=== PATIENT | female | born 1930 | race Caucasian/White ===

== ENCOUNTER 2016-11-14 16:40 | Inpatient (IN) | payer MEDICARE, OTHER ==
[2016-11-14] MEDS ORDERED: Sodium Chloride 0.9% 5 ML Syringe FLUSH PRN ×2 (16:56→18:47)
[2016-11-14] MEDS ORDERED: Morphine 4 MG/ML Syringe IVPUSH ONE (16:56)
[2016-11-14] MEDS ORDERED: Sodium Chloride 0.9% 1,000 ML IV ONE (16:56)
[2016-11-14] MEDS ORDERED: Ondansetron 4 MG/2 ML SDV IVPUSH ONE (16:56)
--- NOTE | 2016-11-14 17:02 | EDM.PDOC ---
ED HPI GI/ABDOMINAL - General Chief Complaint: Abdominal Pain Stated Complaint: SEVERE ABDOMINAL PAIN Time Seen by Provider: 11/14/16 16:45 Source of Information: Reports: Patient History Limitations: Reports: No limitations - History of Present Illness INITIAL COMMENTS - FREE TEXT/NARRATIVE: 86 YO WF presents to ER complaining of severe abdominal pain which began today. Pt reports her pain is mostly in her lower abdomen but she feels like her pain is generalized. Pt reports associated nausea without vomiting. Pt denies fever/ chills, denies diarrhea or constipation. Pt with history of hospital admission for RUQ abdominal pain and was diagnosed with viral gastroenteritis. Timing/Duration: Reports: Day(s): (1) Location: generalized Quality: Reports: ache, burning Severity: moderate Context: Denies: sick contact, bad/questionable food, out of country travel, recent surgery, recent trauma, lifting, activity/exercise Associated Symptoms (-Female): Reports: loss of appetite, nausea/vomiting ( nausea). Denies: chest pain, back pain, groin pain, shoulder pain, constipation , diarrhea, bloody stools, fever/chills, malaise - Related Data Allergies/ADRs: Allergies Allergy/AdvReac Type Severity Reaction Status Date / Time adhesive tape Allergy Itching Verified 11/14/16 17:32 Penicillins Allergy Cannot Verified 11/14/16 17:06 Remember sulfamethoxazole Allergy Cannot Verified 11/14/16 17:06 [From Bactrim] Remember trimethoprim [From Bactrim] Allergy Cannot Verified 11/14/16 17:06 Remember Home Meds: Home Meds Acetaminophen/HYDROcodone [[place] 325-5 MG] 1 tab PO Q6H PRN 02/03/16 [History] Aspirin 81 mg PO DAILY 02/03/16 [History] ClonazePAM [KlonoPIN] 0.25 mg PO BEDTIME PRN 02/03/16 [History] Cyanocobalamin (Vitamin B-12) [Vitamin B-12] 100 mcg PO DAILY 02/03/16 [History] Cyclobenzaprine [Flexeril] 10 mg PO BID 02/03/16 [History] Ketotifen Fumarate [Zaditor] 1 drop EYEBOTH BID PRN 02/03/16 [History] Levothyroxine [Synthroid] 50 mcg PO ACBREAKFAST 02/03/16 [History] Lisinopril 20 mg PO DAILY 02/03/16 [History] Lutein/Zeaxanthin [Lutein-Zeaxanthin 25-5 mg Sfgl] 1 tab PO DAILY 02/03/16 [ History] Multivitamins/Minerals [Vitamins and Minerals] 1 tab PO DAILY 02/03/16 [History] traMADol [Ultram] 50 mg PO TID PRN 02/03/16 [History] Magnesium Hydroxide [Milk of Magnesia] 30 ml PO DAILY PRN 02/04/16 [History] Biotin 1 tab PO DAILY 11/14/16 [History] Cholecalciferol (Vitamin D3) [Vitamin D3] 1 cap PO DAILY 11/14/16 [History] ClonazePAM [KlonoPIN] 0.125 mg PO DAILY PRN 11/14/16 [History] Ondansetron HCl [Zofran] 1 tab PO Q6H PRN 11/14/16 [History] Past Medical History HEENT History: Reports: Cataract, Impaired vision Cardiovascular History: Reports: Hypertension Respiratory History: Reports: None Gastrointestinal History: Reports: Chronic constipation Genitourinary History: Reports: None 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: Musculoskeletal History: Reports: Arthritis Neurological History: Reports: None Psychiatric History: Reports: Anxiety Endocrine/Metabolic History: Reports: Hypothyroidism Hematologic History: Reports: B12 deficiency Immunologic History: Reports: None Oncologic (Cancer) History: Reports: Cervix Dermatologic History: Reports: None - Infectious Disease History Infectious Disease History: Reports: Chicken pox, Measles, Mumps, Rubella - Past Surgical History HEENT Surgical History: Reports: Cataract surgery Cardiovascular Surgical History: Reports: None Respiratory Surgical History: Reports: None GI Surgical History: Reports: Appendectomy, Colonoscopy, EGD Female Surgical History: Reports: Breast biopsy, Hysterectomy, Salpingo- oophorectomy Endocrine Surgical History: Reports: None Neurological Surgical History: Reports: None Musculoskeletal Surgical History: Reports: None Oncologic Surgical History: Reports: None Dermatological Surgical History: Reports: None Social & Family History - Family History Family Medical History: Noncontributory - Tobacco Use Smoking Status *Q: Current Every Day Smoker Years of Tobacco use: 70 Packs/Tins Daily: 0.5 Used Tobacco, but Quit: No Second Hand Smoke Exposure: No - Alcohol Use Days Per Week of Alcohol Use: 0 - Recreational Drug Use Recreational Drug Use: No ED ROS GENERAL - Review of Systems Review Of Systems: ROS reveals no pertinent complaints other than HPI. Constitutional: Reports: no symptoms HEENT: Reports: No symptoms Respiratory: Reports: no symptoms Cardiovascular: Reports: No symptoms Endocrine: Reports: no symptoms GI/Abdominal: Reports: Abdominal pain, Anorexia, Nausea. Denies: Black stool, Bloody stool, Distension, Flatus, Hematemesis, Melena, Stool incontinence, Vomiting : Reports: frequency. Denies: dysuria, urgency Musculoskeletal: Reports: no symptoms Skin: Reports: no symptoms Neurological: Reports: no symptoms Psychiatric: Reports: No symptoms Hematologic/Lymphatic: Reports: no symptoms Immunologic: Reports: no symptoms ED EXAM, GI/ABD - Physical Exam Exam: See Below Exam Limited By: No limitations General Appearance: alert, WD/WN, mild distress Throat/Mouth: Normal inspection, Normal lips, Normal teeth, Normal gums, Normal oropharynx, Normal voice, No airway compromise Head: atraumatic, normocephalic Neck: normal inspection, supple, non-tender, full range of motion Respiratory/Chest: no respiratory distress, lungs clear, normal breath sounds, no accessory muscle use, chest non-tender Cardiovascular: normal peripheral pulses, regular rate, rhythm, no edema, no gallop, no JVD, no murmur, no rub GI/Abdominal: normal bowel sounds, soft, no organomegaly, no distention, no abnormal bruit, no mass, tenderness, guarding Back Exam: normal inspection, full range of motion, NT Extremities: normal inspection, normal range of motion, non-tender, normal capillary refill, no pedal edema Neurological: alert, oriented, CN II-XII intact, normal cognition, normal gait, normal reflexes, no motor/sensory deficits Psychiatric: normal affect, normal mood Skin Exam: Warm, Dry, Intact, Normal color, No rash Lymphatic: no adenopathy Course - Vital Signs Last Recorded V/S: Last Vital Signs Temp 37.3 C 11/14/16 16:55 Pulse 100 11/14/16 16:55 Resp 32 H 11/14/16 16:55 BP 174/45 H 11/14/16 16:55 Pulse Ox 97 11/14/16 16:55 - Orders/Labs/Meds Orders: Active Orders 24 hr Category Date Time Status Peripheral IV Care [RC] . DIRECTED Care 11/14/16 16:57 Active Abdomen Pelvis w Cont [CT] Stat Exams 11/14/16 16:56 Taken Sodium Chloride 0.9% [Normal Saline] Med 11/14/16 18:15 Active 50 ml FLUSH ASDIRECTED Sodium Chloride 0.9% [Syrex Flush] Med 11/14/16 16:56 Active 5 ml FLUSH Q8HR PRN Peripheral IV Insertion Adult [OM.PC] Routine Oth 11/14/16 16:56 Ordered Medication Orders Sodium Chloride (Syrex Flush) 5 ml FLUSH Q8HR PRN PRN Reason: Keep Vein Open Sodium Chloride (Normal Saline) 50 ml FLUSH ASDIRECTED [facility] Labs: Laboratory Tests 11/14/16 11/14/16 11/14/16 Range/Units 17:10 17:10 18:05 WBC 9.1 (5.0-10.0) 10^3/uL RBC 5.31 (3.80-5.50) 10^6/uL Hgb 16.5 H (12.0-16.0) g/dL Hct 48.8 H (37.0-47.0) % MCV 92.0 (82.0-92.0) fL MCH 31.0 (27.0-31.0) pg MCHC 33.7 (32.0-36.0) g/dL RDW 12.7 (11.5-14.5) % Plt Count 251 (150-300) 10^3/uL MPV 7.2 L (7.4-10.4) fL Neut % (Auto) 80.8 H (50.0-70.0) % Lymph % (Auto) 15.4 L (20.0-40.0) % [place] % (Auto) 3.2 (2.0-8.0) % Eos % (Auto) 0.5 L (1.0-3.0) % Baso % (Auto) 0.1 (0.0-1.0) % Neut # 7.4 H (2.5-7.0) 10^3/uL Lymph # 1.4 (1.0-4.0) 10^3/uL [place] # 0.3 (0.1-0.8) 10^3/uL Eos # 0.0 L (0.1-0.3) 10^3/uL Baso # 0.0 (0.0-0.1) 10^3/uL Sodium 138 (136-145) mmol/L Potassium 5.2 (3.3-5.3) mmol/L Chloride 101 (98-115) mmol/L Carbon Dioxide 23.2 (21.0-32.0) mmol/L BUN 29 H (6-25) mg/dL Creatinine 0.78 (0.51-1.17) mg/dL Est Cr Clr Drug Dosing 25.10 mL/min Estimated GFR (MDRD) > 60 mL/min Glucose 133 H (70-110) mg/dL Calcium 9.5 (8.7-10.3) mg/dL Total Bilirubin 0.6 (0.2-1.0) mg/dL AST 32 (15-37) U/L ALT 31 (12-78) U/L Alkaline Phosphatase 69 (46-116) IU/L Total Protein 6.5 (6.4-8.2) g/dL Albumin 3.74 (3.00-4.80) g/dL Lipase 128 (73-393) U/L Specimen Type Urinblad Urine Color Yellow (YELLOW) Urine Appearance Clear (CLEAR) Urine pH 5.5 (5.0-9.0) Ur Specific [place] 1.015 (1.005-1.030) Urine Protein 100 H (NEGATIVE) mg/dL Urine Glucose (UA) Negative (NEGATIVE) mg/dL Urine Ketones Trace H (NEGATIVE) mg/dL Urine Occult Blood Negative (NEGATIVE) Urine Nitrite Negative (NEGATIVE) Urine Bilirubin Negative (NEGATIVE) Urine Urobilinogen 0.2 (0.2-1.0) E.U./dL Ur Leukocyte Esterase Negative (NEGATIVE) Urine RBC Not seen /HPF Urine WBC 0-5 /HPF Ur Epithelial Cells Rare /LPF Urine Bacteria Not seen (NONE TO FEW) /HPF Meds: Medications Generic Name Dose Route Start Last Admin Trade Name Freq PRN Reason Stop Dose Admin Sodium Chloride 5 ml 11/14/16 16:56 Syrex Flush FLUSH Q8HR PRN Keep Vein Open Sodium Chloride 50 ml 11/14/16 18:15 Normal Saline FLUSH ASDIRECTED [facility] Discontinued Medications Generic Name Dose Route Start Last Admin Trade Name Freq PRN Reason Stop Dose Admin Sodium Chloride 1,000 mls @ 999 mls/hr 11/14/16 16:56 11/14/16 17:20 Normal Saline IV 11/14/16 17:56 999 mls/hr .BOLUS ONE Administration Iopamidol 75 ml 11/14/16 18:02 Isovue-300 (61%) IV 11/14/16 18:03 ONETIME ONE Morphine Sulfate 4 mg 11/14/16 16:56 11/14/16 17:22 Morphine IVPUSH 11/14/16 16:57 4 mg ONETIME ONE Administration Ondansetron HCl 4 mg 11/14/16 16:56 11/14/16 17:17 Zofran IVPUSH 11/14/16 16:57 4 mg ONETIME ONE Administration - Radiology Interpretation Free Text/Narrative:: CT abd/pelvis- mild ascites; dilated CBD CT Results Date: 11/14/16 CT Results Time: 18:40 Departure - Departure Time of Disposition: 18:42 Disposition: Home, Self-Care 01 Condition: good Clinical Impression: Abdominal pain Qualifiers: Abdominal location: generalized Qualified Code(s): R10.84 - Generalized abdominal pain Ascites Qualifiers: Ascites type: other type Qualified Code(s): R18.8 - Other ascites Forms: ED Department Discharge - My Orders Last 24 Hours: My Active Orders 11/14/16 16:56 Abdomen Pelvis w Cont [CT] Stat Sodium Chloride 0.9% [Syrex Flush] 5 ml FLUSH Q8HR PRN Peripheral IV Insertion Adult [OM.PC] Routine 11/14/16 16:57 Peripheral IV Care [RC] . DIRECTED 11/14/16 18:15 Sodium Chloride 0.9% [Normal Saline] 50 ml FLUSH ASDIRECTED - Assessment/Plan Last 24 Hours: My Active Orders 11/14/16 16:56 Abdomen Pelvis w Cont [CT] Stat Sodium Chloride 0.9% [Syrex Flush] 5 ml FLUSH Q8HR PRN Peripheral IV Insertion Adult [OM.PC] Routine 11/14/16 16:57 Peripheral IV Care [RC] . DIRECTED 11/14/16 18:15 Sodium Chloride 0.9% [Normal Saline] 50 ml FLUSH ASDIRECTED Assessment:: 1. severe abdominal pain 2. mild ascites Plan: 1. admit for further evaluation and treatment 2. morphine 4mg IV Q4-6 prn pain 3. zofran 4mg IV Q6 PRN
[2016-11-14] MEDS ORDERED: Iopamidol 612 MG/ML 75 ML Bottle IV PRN (17:10)
[2016-11-14] MEDS ORDERED: Sodium Chloride 0.9% 50 ML SDV FLUSH ONE (17:10)
[2016-11-14] MEDS: Iopamidol 612 MG/ML 75 ML Bottle IV ONE ×2 (17:26→20:16)
[2016-11-14 17:41] LABS: CHLORIDE,CL 101 mmol/L (98-115); SODIUM,NA 138 mmol/L (136-145)
[2016-11-14] MEDS ORDERED: Sodium Chloride 0.9% 50 ML SDV FLUSH SCH (18:15)
[2016-11-14] MEDS ORDERED: Ondansetron 4 MG/2 ML SDV IV PRN (18:47)
[2016-11-14] MEDS ORDERED: Morphine 2 MG/ML Syringe IVPUSH PRN (18:47)
[2016-11-14] MEDS ORDERED: Sodium Chloride 0.9% 1,000 ML IV SCH ×2 (19:00→20:45)
[2016-11-14] MEDS ORDERED: Magnesium Hydroxide 400 MG/5 ML Susp 30 ML Cup PO PRN (19:14)
[2016-11-14] MEDS ORDERED: KETOTIFEN FUMARATE EYEBOTH PRN (19:14)
[2016-11-14] MEDS ORDERED: ClonazePAM 0.5 MG Tab PO PRN ×2 (19:14)
[2016-11-14] MEDS ORDERED: Magnesium Hydroxide 400 MG/5 ML Susp 30 ML Cup PO ONE (19:19)
[2016-11-14] MEDS ORDERED: Bisacodyl 10 MG Supp RECTAL ONE (19:21)
[2016-11-14] MEDS ORDERED: Aspirin 81 MG Tab.Chew PO SCH (21:00)
[2016-11-14] MEDS ORDERED: Lisinopril 20 MG Tab PO SCH (21:00)
[2016-11-14] MEDS: Simethicone 80 MG Tab.Chew PO SCH (21:30)
--- NOTE | 2016-11-14 22:40 | HP ---
HISTORY OF PRESENT ILLNESS: This is an 86-year-old female patient who presents to the emergency room [facility] with concerns about severe abdominal pain. The patient states for the last few days she kind of has had some stomachaches. She says she has been having some irregular bowel movements. She says she has had both a little diarrhea and constipation and says she will go for a while then she has a small loose watery stool. She says today she had a stool what looked like rabbit turds/small little pellets. She states that her appetite has not been very good lately. Today when the abdominal pain started she got nauseated. She says the pain was so bad today, she has never had pain like that before. She denies any fever or chills. She denies any urinary symptoms. She denies any chest pain. She states she never did throw up, she was just nauseated. PAST MEDICAL HISTORY: The patient does have a past medical history of anxiety, hypothyroidism, hypertension, macular degeneration. She is a current smoker. MEDICATIONS: At home, the patient takes Lutein for her macular degeneration. She takes multivitamin daily. She takes 81 mg of aspirin daily. She takes clonazepam at bedtime as needed for sleep. She takes levothyroxine 50 mcg daily. She takes lisinopril 20 mg daily at bedtime. ALLERGIES: She is allergic to adhesive tape, penicillin, sulfa, and Bactrim. SOCIAL/PERSONAL HISTORY: The patient is a . She lives by herself in an apartment here in [place]. She does not drive any more. Her daughter comes, picks her up, and takes her to doctor appointments and grocery store. She does currently smoke cigarettes. She denies any alcohol use. REVIEW OF SYSTEMS: CONSTITUTIONAL: No weight loss. No fever. No chills. No night sweats. Appetite is good. No fatigue. EYES: No recent visual changes. ENT: No sinus congestion or hoarseness. CARDIOVASCULAR: No chest pain or palpitations. RESPIRATORY: No cough. No shortness of breath. GI: The patient does complaint of abdominal pain. She says it has much improved than it was before. She says she continues to be slightly nauseated. : No dysuria or hematuria. MUSCULOSKELETAL: No new bone pain or joint swelling. INTEGUMENTARY: No rash or pruritus. NEUROLOGIC/PSYCHIATRIC: No recent headache or focal weakness. No depressive symptoms. ENDOCRINE: No heat or cold intolerances or polydipsia. HEMATOLOGIC/LYMPHATIC: No excessive bruising or lymph node swelling. ALLERGIC/IMMUNOLOGIC: No hives or recurrent infections. PHYSICAL EXAMINATION: GENERAL: This is an elderly white female, in no acute distress. VITAL SIGNS: Blood pressure 174/45, temperature is 99.1, pulse is 100, respiratory rate is 16, oxygen saturations on room air is 97%. HEENT: Head is normocephalic. EOMs are intact. Pupils are equal, round, reactive to light and accommodation. Bilateral tympanic membranes are intact. Nose is clear. No pharyngeal erythema. NECK: Supple. No JVD. Trachea midline. LUNGS: Sounds are clear but diminished at bases. Lung sounds sound distant throughout lungs garcia. CARDIAC: Distant heart tones. Regular rate and rhythm. No murmurs identified. ABDOMEN: Firm. Bowel sounds are active in all four quadrants. No distention. The patient does have tenderness with generalized palpation to entire abdomen. The patient does have loud bowel sounds after palpation. EXTREMITIES: Full range of motion. No joint effusions noted. NEUROLOGICAL: Grossly intact. DIAGNOSTIC DATA: Lab work that was obtained in the emergency room CBC shows a white count within normal range at 9.1, hemoglobin is slightly elevated at 16.5, platelet count within normal range at 251. Chemistry panel is unremarkable except for BUN slightly elevated at 29. The patient's glucose was 133, the patient's AST 32, ALT 31, alkaline phosphatase is 69, these were all within normal range. The patient's lipase is within normal range at 128. The patient's urinalysis that was obtained in the emergency room shows urine protein at 100 which is high and a trace of ketones. Everything else is negative or unremarkable. The patient did have a CT of the abdomen performed in the emergency room. The impression reads per Radiology. 1. Small ascites throughout the abdomen and pelvis. 2. Mild dilation of the pancreatic and bile ducts, correlate with bilirubin and other lab data to further exclude evidence of obstruction. IMPRESSION/PLAN: 1. Severe abdominal pain. Plan: The patient's CT scan shows small amount of ascites with mild dilation to the pancreatic and bile ducts, otherwise unremarkable. The patient's lab work is unremarkable, CBC and CMP along with lipase. We are going to admit the patient with IV fluids normal saline at 50 mL/h. She can have Zofran 4 mg IV every 4 hours for nausea. She can have morphine 2 mg every 2 hours as needed for abdominal pain. We are going to give the patient at one time Dulcolax suppository 10 mg. We are also going to give her a one time dose of milk of magnesia 30 mL yet this evening, and we will give the patient some simethicone 80 mg prior to meals and at bedtime. 2. History of hypothyroidism. Plan: We will continue with levothyroxine 50 mcg daily. 3. History of hypertension. Plan: We will continue with lisinopril 20 mg at bedtime. 4. History of macular degeneration. Plan: We will continue with gluten one tab daily. /[id number]/MODL MTDD
[2016-11-15 06:49] VITALS: BP 156/76
[2016-11-15] MEDS: Simethicone 80 MG Tab.Chew PO SCH ×2 (06:52→12:32)
[2016-11-15] MEDS ORDERED: Levothyroxine 50 MCG Tab PO SCH (07:00)
[2016-11-15] MEDS ORDERED: [UNRECOGNIZED DRUG - OTHER] PO SCH (09:00)
[2016-11-15] MEDS ORDERED: Multivitamins with Minerals/Iron/Folic Acid/Lycopene Tab PO SCH (09:00)
[2016-11-15] MEDS ORDERED: Non-Formulary Medication 1 Each (Cyanocobalamin (Vitamin B-12) [Vitamin B-12] 100 MCG) PO SCH (09:00)
[2016-11-15] MEDS ORDERED: ZEAXANTHIN PO SCH (09:00)
[2016-11-15] MEDS ORDERED: BIOTIN PO SCH (09:00)
[2016-11-15] MEDS ORDERED: Cholecalciferol (Vitamin D3) 1,000 Unit Tab PO SCH (09:00)
[2016-11-15] MEDS ORDERED: LUTEIN PO SCH (09:00)
[2016-11-15] MEDS ORDERED: Magnesium Hydroxide 400 MG/5 ML Susp 30 ML Cup PO ONE (09:28)
[2016-11-15] MEDS ORDERED: Bisacodyl 10 MG Supp RECTAL ONE (09:35)
--- NOTE | 2016-11-16 10:32 | DISCH ---
ADMITTING DIAGNOSIS: Severe abdominal pain. FINAL DIAGNOSIS: Constipation with abdominal pain, much improved. BRIEF HISTORY AND ESSENTIAL FINDINGS: This is an 86-year-old female patient who was at home having some abdominal pain. She stated that it started over the last 2 days. She says that she was having this pain on and off with some irregular bowel movements. She said she was kind of having diarrhea stools along with some constipation. She states she had tiny pellet stools like raisins and then she started having severe abdominal pain. At that time, she was brought to the emergency room for further evaluation and treatment. SIGNIFICANT LABS XRAYS AND CONSULTATION FINDINGS: The patient's lab work that was obtained in the emergency room. CBC showed white count within normal range at 9.1, hemoglobin 16.5, platelet count 251. Chemistry panel was unremarkable except for BUN slightly elevated at 29. The patient's lipase was in normal range at 128. The patient's urinalysis showed trace of ketones with small amount of protein, otherwise unremarkable. The patient did have a CT of the abdomen performed in the emergency room which showed a small amount of ascites in the abdomen and pelvis. It also showed mild dilation of the pancreatic and bile ducts, otherwise unremarkable. COURSE IN HOSPITAL WITH COMPLICATIONS IF ANY: The patient was given 4 mg of morphine IV in the emergency room which relieved the patient's pain quite a bit. She was in severe pain when she arrived. She was given IV fluids in the emergency room along with some Zofran as needed for nausea. After the patient was admitted, her pain was much improved. She did receive 2 mg of morphine additional which relieved her pain. She had no abdominal pain throughout the night. She was able to the eat breakfast. On the day of discharge, she had some bananas toast pain-free. The patient was given some milk of magnesia along with Dulcolax suppository when patient did have good results with a bowel movement after this. She felt much better with less gas, bloating. CONDITION TREATMENT AND FINAL DISPOSITION ON DISCHARGE AND PROGNOSIS: Condition is stable. Final disposition will be home. IMPRESSION AND PLAN: 1. Severe abdominal pain with constipation and bloating. The patient's CT scan of the abdomen and pelvis showed just a small amount of ascites with mild dilation to the pancreatic and bile ducts, otherwise unremarkable. The patient's lab work was unremarkable. CBC and CMP along with lipase were all within normal range. Urinalysis was also unremarkable. The patient was given IV fluids here. She required 2 doses of morphine IV to help with the pain. She was given milk of magnesia 1 dose here in the hospital along with 1 Dulcolax suppository which did have good results with passing stool and gas rectally. The patient will be sent home on MiraLAX 1 tablespoon daily along with Reglan 10 mg twice a day for 5 days. The patient will follow with Dr. Kitty Ariza in the clinic in 1 week. She may take Gas-X at home as needed also. 2. History of hypothyroidism. Plan: Continue with levothyroxine 50 mcg daily. 3. History of hypertension. Plan: Continue with lisinopril 20 mg at bedtime. 4. History of macular degeneration. Plan: Continue with Lutein 1 tab daily. PLAN: The patient will follow up in the clinic of Dr. Kitty Ariza. She will be discharged home on MiraLAX 1 tablespoon daily along with Reglan 10 mg twice a day. She may take Gas-X as needed for gas and bloating. /[id number]/MODL MTDD
== END 2016-11-15 12:15 | disposition home or self-care (01) | DRG 392 ==
LOC: KA.ED 16:40 → KA.MS 18:46
PROVIDERS: ADMIT Physician Assistant Medical; ATTEND Physician Assistant
DX: R10.84 Generalized abdominal pain (principal); R18.8 Other ascites; K59.00 Constipation, unspecified; E03.9 Hypothyroidism, unspecified; I10 Essential (primary) hypertension; E53.8 Deficiency of other specified B group vitamins; F41.9 Anxiety disorder, unspecified; Z79.82 Long term (current) use of aspirin; Z85.41 Personal history of malignant neoplasm of cervix uteri; Z79.899 Other long term (current) drug therapy; H35.30 Unspecified macular degeneration; F17.200 Nicotine dependence, unspecified, uncomplicated; Z88.0 Allergy status to penicillin; Z88.8 Allergy status to other drugs, medicaments and biological substances
CPT/HCPCS: 36415; 74177; 80053; 81001; 83690; 85025; J2270; J2405; J7030; 96361; 96374; 96375; 99284; 99285; A9270-GY; Q9967

== ENCOUNTER 2017-07-28 05:54 | Day surgery (SDC) | payer MEDICARE, OTHER ==
[2017-07-28] MEDS ORDERED: Sodium Chloride 0.9% 5 ML Syringe FLUSH PRN (06:00)
[2017-07-28] MEDS ORDERED: Lactated Ringers 1,000 ML IV SCH (06:00)
[2017-07-28] MEDS ORDERED: EPINEPHrine 1:10,000 1 MG/10 ML Syringe ONE (06:58)
[2017-07-28] MEDS ORDERED: Propofol 200 MG/20 ML SDV IV ONE (07:11)
[2017-07-28] MEDS ORDERED: Midazolam 1 MG/ML 2 ML SDV IV ONE (07:11)
--- NOTE | 2017-07-28 07:29 | PCM.OPNOTE ---
- General Post-Op/Procedure Note Date of Surgery/Procedure: 07/28/17 Operative Procedure(s): Upper GI Endoscopy. Findings: WNL Anesthesia Technique: MAC Primary Surgeon: Kitty Ariza Complications: None Condition: Good Free Text/Narrative:: INFORMED CONSENT: Patient is here today for elective upper GI endoscopy. All aspects of this procedure have been discussed with the patient. All possible complications also, including possibility of perforation, infection, pain, bleeding, numbness of the throat, swallowing difficulty and unknown complications. In the event of perforation the patient may need surgical exploration to repair the defect. The patient understands fully well. Patient did not have any further questions for me at the end of my interview. The patient wishes for me to proceed. INSTRUMENT USED: Video gastroscope ANESTHESIA: [MAC] ASA CLASSIFICATION: [] PROCEDURE PERFORMED: [Upper gastrointestinal endoscopy] PHARYNX: Normal. ESOPHAGUS: Normal. Proximal: Normal. Middle: Normal. Lower: Normal. GE Junction: Normal. STOMACH: Normal. Cardia: Normal. Fundus: Normal. Lesser Curvature: Normal. Greater Curvature: Normal. Antrum: Normal. Pylorus: Normal. DUODENUM: Normal. First Part: Normal. Second Part: Normal. Third Part: Normal. RETROFLEXION: Normal. BIOPSY: None. TOLERANCE: Excellent. COMPLICATIONS: None.
[2017-07-28 08:13] VITALS: BP 151/73
--- NOTE | 2017-07-28 09:50 | PCM.PN ---
- General Info Date of Service: 07/28/17 Subjective Update: This patient is admitted because of melena and upper abdominal pain. She previously has had history of gastritis and peptic ulcer disease. Has been a chronic smoker. She is here today for elective upper GI endoscopy. Functional Status: Reports: Pain Controlled - Review of Systems General: Reports: Weakness HEENT: Reports: No Symptoms Pulmonary: Reports: No Symptoms Cardiovascular: Reports: No Symptoms Gastrointestinal: Reports: Other (This patient has generalized abdominal pain. It is in the epigastric and in the lower abdomen also.) Genitourinary: Reports: No Symptoms Musculoskeletal: Reports: No Symptoms Skin: Reports: No Symptoms Neurological: Reports: No Symptoms Psychiatric: Reports: No Symptoms - Patient Data Vitals - Most Recent: Last Vital Signs Temp 96 F 07/28/17 08:13 Pulse 80 07/28/17 08:13 Resp 16 07/28/17 08:13 BP 151/73 H 07/28/17 08:13 Pulse Ox 98 07/28/17 08:13 Weight - Most Recent: 67 lb Med Orders - Current: Current Medications Discontinued Medications Epinephrine HCl (Epinephrine 1:10,000) Confirm Administered Dose 1 mg .ROUTE .STK-MED ONE Stop: 07/28/17 06:59 Lactated Ringer's (Ringers, Lactated) 1,000 mls @ 50 mls/hr IV ASDIRECTED [facility] Last Admin: 07/28/17 06:24 Dose: 50 mls/hr Sodium Chloride (Syrex Flush) 5 ml FLUSH Q8HR PRN PRN Reason: Keep Vein Open - Exam General: Alert, Oriented, Other (Patient is elderly and fragile. She only weighs 65 pounds.) HEENT: Pupils Equal, Pupils Reactive, EOMI, Mucous Membr. Moist/[place] Neck: Supple Lungs: Clear to Auscultation, Normal Respiratory Effort Cardiovascular: Regular Rate, Regular Rhythm GI/Abdominal Exam: Normal Bowel Sounds, Soft, Non-Tender, No Organomegaly, No Distention, No Abnormal Bruit, No Mass, Pelvis Stable (Female) Exam: Normal External Exam, Normal Speculum Exam, Normal Bimanual Exam Back Exam: Normal Inspection, Full Range of Motion Extremities: Normal Inspection, Normal Range of Motion, Non-Tender, No Pedal Edema, Normal Capillary Refill Skin: Warm, Dry, Intact Wound/Incisions: Healing Well Neurological: No New Focal Deficit Psy/Mental Status: Alert, Normal Affect, Normal Mood - Problem List & Annotations (1) Abdominal pain SNOMED Code(s): 76714483 Code(s): R10.9 - UNSPECIFIED ABDOMINAL PAIN Status: Acute Priority: Medium Qualifiers: Abdominal location: epigastric Qualified Code(s): R10.13 - Epigastric pain - Problem List Review Problem List Initiated/Reviewed/Updated: Yes - My Orders Last 24 Hours: My Active Orders 07/27/17 12:58 Resuscitation Status Routine 07/28/17 06:00 Patient to Empty Bladder [RC] ASDIRECTED Peripheral IV Care [RC] . DIRECTED Verify Patient Consent Obtain [RC] ASDIRECTED Peripheral IV Insertion Adult [OM.PC] Routine 07/28/17 07:29 Oxygen Therapy [RC] PRN Ready for Discharge [RC] PER UNIT ROUTINE Vital Signs [RC] PER UNIT ROUTINE - Plan Plan:: Upper GI endoscopy and possible biopsies.
== END 2017-07-28 08:40 | disposition home or self-care (01) ==
LOC: KA.SDS 05:54
PROVIDERS: ATTEND Family Medicine
DX: R10.13 Epigastric pain (principal); K92.1 Melena; I10 Essential (primary) hypertension; E78.5 Hyperlipidemia, unspecified; E03.9 Hypothyroidism, unspecified; I73.9 Peripheral vascular disease, unspecified; Z88.0 Allergy status to penicillin; Z88.1 Allergy status to other antibiotic agents; Z88.2 Allergy status to sulfonamides; Z91.09 Other allergy status, other than to drugs and biological substances; Z90.710 Acquired absence of both cervix and uterus; F17.210 Nicotine dependence, cigarettes, uncomplicated; Z79.82 Long term (current) use of aspirin; Z79.899 Other long term (current) drug therapy
CPT/HCPCS: 43235; J2250; J2704; J7120; 00740

== ENCOUNTER 2018-12-12 16:34 | Observation (INO) | payer MEDICARE, OTHER ==
[2018-12-12] MEDS ORDERED: Ondansetron 4 MG/2 ML SDV IV PRN (17:42)
[2018-12-12] MEDS ORDERED: Sodium Chloride 0.9% 10 ML Syringe FLUSH PRN (17:42)
[2018-12-12] MEDS ORDERED: Sodium Chloride 0.9% 500 ML IV SCH (17:45)
[2018-12-12] MEDS ORDERED: Dextrose 5%-0.45% NaCl 1,000 ML IV SCH (17:45)
[2018-12-12] MEDS ORDERED: EYE EYEBOTH PRN (17:53)
[2018-12-12] MEDS ORDERED: ClonazePAM 0.5 MG Tab PO PRN (17:53)
[2018-12-12] MEDS ORDERED: KETOTIFEN 0.025% EYEBOTH PRN (17:53)
[2018-12-12] MEDS ORDERED: cefTRIAXone 1 GM Vial IVPUSH SCH (18:00)
[2018-12-12 18:45] LABS: ANION GAP 15.2 mmol/L (5-15); CHLORIDE,CL 102 mmol/L (98-115); SODIUM,NA 140 mmol/L (136-145)
[2018-12-12] MEDS: Acetaminophen/HYDROcodone 325-5 MG Tab PO PRN (18:50)
[2018-12-12] MEDS ORDERED: Lisinopril 5 MG Tab PO SCH (21:00)
[2018-12-12] MEDS ORDERED: Aspirin 81 MG Tab.Chew PO SCH (21:00)
[2018-12-12] MEDS: traMADol 50 MG Tab PO SCH (21:02)
[2018-12-13] MEDS: Acetaminophen/HYDROcodone 325-5 MG Tab PO PRN ×2 (00:06→06:04)
[2018-12-13] MEDS: Levothyroxine 50 MCG Tab PO SCH ×2 (06:04→06:34)
[2018-12-13 06:51] VITALS: BP 153/73
[2018-12-13] MEDS: traMADol 50 MG Tab PO SCH (08:18)
--- NOTE | 2018-12-13 09:56 | PCM.DCSUM1 ---
Discharge Summary - Discharge Data Discharge Date: 12/13/18 Discharge Disposition: Home, Self-Care 01 Condition: Good - Patient Instructions Diet: Drink 8-10+ Glasses/Day Activity: As Tolerated Driving: May Drive Today Showering/Bathing: January Shower Notify Provider of: Fever, Increased Pain, Nausea and/or Vomiting Other/Special Instructions: Come to [facility] every day for an injection for the next 3 days starting tomorrow December 14 around 2:00pm - Discharge Plan *PRESCRIPTION DRUG MONITORING PROGRAM REVIEWED*: Not Applicable *COPY OF PRESCRIPTION DRUG MONITORING REPORT IN PATIENT LORI: Not Applicable Home Medications: Home Meds Acetaminophen/HYDROcodone [[place] 325-5 MG] 1 tab PO Q6H PRN 02/03/16 [History] Aspirin 81 mg PO BEDTIME 02/03/16 [History] ClonazePAM [KlonoPIN] 0.25 mg PO BEDTIME PRN 02/03/16 [History] Ketotifen Fumarate [Zaditor] 1 drop EYEBOTH BID PRN 02/03/16 [History] Levothyroxine [Synthroid] 50 mcg PO ACBREAKFAST 02/03/16 [History] Lisinopril 5 mg PO BEDTIME 02/03/16 [History] Lutein/Zeaxanthin [Lutein-Zeaxanthin 25-5 mg Sfgl] 1 tab PO DAILY 02/03/16 [ History] Multivitamins/Minerals [Vitamins and Minerals] 1 tab PO DAILY 02/03/16 [History] Cholecalciferol (Vitamin D3) [Vitamin D3] 1 cap PO DAILY 11/14/16 [History] Clobetasol [Clobetasol Propionate 0.05% Cream] 15 gm TOP BID PRN 12/12/18 [ History] Ondansetron [Zofran] 4 mg PO Q6H PRN 12/12/18 [History] Ranitidine HCl [Zantac 75] 75 mg PO BID 12/12/18 [History] traMADol [Ultram] 50 mg PO BID 12/12/18 [History] Referrals: Faith Duarte PA-C [Physician] - (Later this week) - Discharge Summary/Plan Comment DC Time >30 min.: Yes Discharge Summary/Plan Comment: Final diagnosis, UTI, symptomatic Opioid induced nausea History Ms Hobson admitted to the hospital due to symptomatic urinary tract infection in which she has failed outpatient treatment. [facility] due to symptoms suggestive of urinary tract like symptoms, however she had minimal LUTS (however suprapubic pain) stated she just did not feel right. She is on chronic opioid therapy and which she will omit she gets nauseated and dizziness when when taking this. She admits to not drinking enough water. A week prior to admitted she had a UA that demonstrated 30-49 WBCs present along with WBC clumping. Bacteria is 6-30. Culture and sensitivity reported of E. coli/mixed microflora, Sensitivity to Macrobid. Patient has been on the medication since last week however she states she has not been able to tolerate the drug due to increased nausea. Her allergies do include penicillin and Bactrim. He had no neutrophilia, x-ray of the abdomen no obstruction or free perforation. Hospital course No complications to treatments and no side effects to medications, short stay, she received 1 g of ceftriaxone upon admission and before discharge. She was hydrated with IV fluids and she felt much better upon discharge. He tolerated her meal without vomiting or nausea, electrolytes were monitored and they were normal, white count was normal, temperature maximum 99.3 Medication changes/adjustments upon discharge Take Tums when you take your pain medication Ceftriaxone 1 g every 24 hours 3 days starting December 14 [facility] Disposition, patient strongly desired to be discharged from the hospital, Follow -up with Faith duarte this week. Considerations at follow-up Since aspirin is secondary prevention for her, suggest 81 mg chewable with meals to ensure no GI complications, versus current regimen. - General Info Functional Status: Reports: Tolerating Diet, Ambulating, Other (Chronic pain in her legs and knees). Denies: New Symptoms - Review of Systems General: Denies: Fever, Fatigue, Malaise, Chills Pulmonary: Reports: No Symptoms Cardiovascular: Reports: No Symptoms Gastrointestinal: Denies: Nausea Genitourinary: Denies: Dysuria, Frequency, Burning, Pain, Urgency, Hematuria, Retention Musculoskeletal: Reports: Leg Pain, Joint Pain (Chronic pain bilateral knees) Skin: Denies: Rash Neurological: Denies: Confusion - Patient Data Vitals - Most Recent: Last Vital Signs Temp 99.2 F 12/13/18 06:50 Pulse 83 12/13/18 06:50 Resp 18 12/13/18 06:50 BP 153/73 H 12/13/18 06:50 Pulse Ox 97 12/13/18 06:50 Weight - Most Recent: 62 lb 11.2 oz I&O - Last 24 hours: Intake & Output 12/12/18 12/13/18 12/13/18 22:59 06:59 14:59 Intake Total 783 796 Balance 783 796 Lab Results - Last 24 hrs: Laboratory Results - last 24 hr 12/12/18 12/12/18 12/12/18 Range/Units 18:18 18:18 22:00 WBC 6.13 (5.00-10.00) 10^3/uL RBC 4.54 (3.80-5.50) 10^6/uL Hgb 15.0 (12.0-16.0) g/dL Hct 42.9 (37.0-47.0) % MCV 94.5 H (82.0-92.0) fL MCH 33.0 H (27.0-31.0) pg MCHC 35.0 (32.0-36.0) g/dL RDW 12.8 (11.5-14.5) % Plt Count 225 (150-400) 10^3/uL MPV 8.7 (7.4-10.4) fL Immature Gran % (Auto) 0.0 (0.0-5.0) % Neut % (Auto) 72.2 H (50.0-70.0) % Lymph % (Auto) 20.9 (20.0-40.0) % [place] % (Auto) 6.4 (2.0-8.0) % Eos % (Auto) 0.2 L (1.0-3.0) % Baso % (Auto) 0.3 (0.0-1.0) % Immature Gran # (Auto) 0.00 (0.00-0.50) 10^3/uL Neut # (Auto) 4.43 (2.50-7.00) 10^3/uL Lymph # (Auto) 1.28 (1.00-4.00) 10^3/uL [place] # (Auto) 0.39 (0.10-0.80) 10^3/uL Eos # (Auto) 0.01 L (0.10-0.30) 10^3/uL Baso # (Auto) 0.02 (0.00-0.10) 10^3/uL Sodium 140 (136-145) mmol/L Potassium 4.5 (3.3-5.3) mmol/L Chloride 102 (98-115) mmol/L Carbon Dioxide 27.3 (21.0-32.0) mmol/L Anion Gap 15.2 H (5-15) mmol/L BUN 22 (6-25) mg/dL Creatinine 0.76 (0.51-1.17) mg/dL Est Cr Clr Drug Dosing 22.97 mL/min Estimated GFR (MDRD) > 60 mL/min Glucose 109 H (75 - 99) mg/dL Calcium 8.9 (8.7-10.3) mg/dL Total Bilirubin 0.4 (0.2-1.0) mg/dL AST 19 (15-37) U/L ALT 23 (12-78) U/L Alkaline Phosphatase 67 (46-116) IU/L Total Protein 6.4 (6.4-8.2) g/dL Albumin 3.46 (3.00-4.80) g/dL Specimen Type Urincc Urine Color Yellow (YELLOW) Urine Appearance Clear (CLEAR) Urine pH 5.5 (5.0-9.0) Ur Specific [place] 1.010 (1.005-1.030) Urine Protein 30 H (NEGATIVE) mg/dL Urine Glucose (UA) Negative (NEGATIVE) mg/dL Urine Ketones Negative (NEGATIVE) mg/dL Urine Occult Blood Negative (NEGATIVE) Urine Nitrite Negative (NEGATIVE) Urine Bilirubin Negative (NEGATIVE) Urine Urobilinogen 0.2 (0.2-1.0) E.U./dL Ur Leukocyte Esterase Negative (NEGATIVE) Urine RBC 0-5 (0-5) /HPF Urine WBC 0-5 (0-5) /HPF Ur Epithelial Cells Few /LPF Urine Bacteria Few (NONE TO FEW) /HPF Med Orders - Current: Current Medications Hydrocodone Bitart/Acetaminophen ([place] 325-5 Mg) 1 tab PO Q6H PRN PRN Reason: moderate pain Last Admin: 12/13/18 06:04 Dose: 1 tab Aspirin (Aspirin) 81 mg PO BEDTIME [facility] Last Admin: 12/12/18 21:01 Dose: 81 mg Ceftriaxone Sodium (Rocephin) 1 gm IVPUSH Q24H [facility] Last Admin: 12/12/18 18:35 Dose: 1 gm Clonazepam (Klonopin) 0.25 mg PO BEDTIME PRN PRN Reason: Insomnia Dextrose/Sodium Chloride (Dextrose 5%-1/2 Ns) 1,000 mls @ 75 mls/hr IV ASDIRECTED [facility] Last Admin: 12/12/18 19:26 Dose: 75 mls/hr Sodium Chloride (Normal Saline) 500 mls @ 999 mls/hr IV .BOLUS [facility] Last Admin: 12/12/18 18:43 Dose: 999 mls/hr Levothyroxine Sodium (Synthroid) 50 mcg PO ACBREAKFAST [facility] Last Admin: 12/13/18 06:34 Dose: Not Given Lisinopril (Prinivil) 5 mg PO BEDTIME [facility] Last Admin: 12/12/18 21:00 Dose: 5 mg Ketotifen 0.025% Eye (Drops *Patient Own*) 1 drop EYEBOTH BID PRN PRN Reason: Itching Ondansetron HCl (Zofran) 8 mg IV Q8H PRN PRN Reason: Nausea/Vomiting Last Admin: 12/12/18 18:43 Dose: 8 mg Ranitidine HCl (Zantac) 75 mg PO BID [facility] Last Admin: 12/13/18 08:19 Dose: 75 mg Sodium Chloride (Saline Flush) 10 ml FLUSH Q8HR PRN PRN Reason: keep vein open Tramadol HCl (Ultram) 50 mg PO BID [facility] Last Admin: 12/13/18 08:18 Dose: Not Given - Exam Quality Assessment: Denies: Supplemental Oxygen General: Reports: Alert, Oriented Neck: Reports: Supple Lungs: Reports: Clear to Auscultation, Normal Respiratory Effort Cardiovascular: Reports: Regular Rate, Regular Rhythm GI/Abdominal Exam: Soft, No Distention. No: Distended Back Exam: Denies: CVA Tenderness (L), CVA Tenderness (R) Extremities: No Pedal Edema Psy/Mental Status: Reports: Alert, Normal Affect, Normal Mood
== END 2018-12-13 10:45 | disposition home or self-care (01) ==
LOC: KA.MS 16:34
PROVIDERS: ADMIT Physician Assistant Medical; ATTEND Family Medicine
DX: N39.0 Urinary tract infection, site not specified (principal); R11.0 Nausea; T40.2X5A Adverse effect of other opioids, initial encounter; F17.210 Nicotine dependence, cigarettes, uncomplicated; Z88.0 Allergy status to penicillin; Z88.1 Allergy status to other antibiotic agents; Z91.048 Other nonmedicinal substance allergy status
CPT/HCPCS: 36415; 80053; 81001; 85025; A9270-GY; J0696; J2405; J7040; J7042

== ENCOUNTER 2018-12-15 12:50 | Emergency (ER) | payer MEDICARE, OTHER ==
--- NOTE | 2018-12-15 13:27 | EDM.PDOC ---
ED HPI GENERAL MEDICAL PROBLEM - General Chief Complaint: General Stated Complaint: dizziness Time Seen by Provider: 12/15/18 13:00 Source of Information: Reports: Patient, Family History Limitations: Reports: No Limitations - History of Present Illness INITIAL COMMENTS - FREE TEXT/NARRATIVE: Experienced chills and not feeling well with elevated BP noted. Abdominal pain but not as severe as prior episode. Has been receiving Ceftriaxone IV initial with IM at clinic X3 doses yesterday and scheduled for today. Didn't feel well this am and was noted to "Not be herself" when her daughter called her at noon. Has no urinary complaints at this time, but upper abdominal pain as prior although uncertain if as strong. Normal bowel movement yesterday with no issues. Urine is dark, acknowledging the need to drink more water. Onset: Today Onset Date: 12/15/18 Onset Time: 08:00 Duration: Getting Worse, Recurring Location: Reports: Head, Abdomen Quality: Reports: Ache, Pressure, Sharp Severity: Moderate Improves with: Reports: None Worsens with: Reports: None Associated Symptoms: Reports: Fever/Chills, Malaise - Related Data Allergies Allergy/AdvReac Type Severity Reaction Status Date / Time adhesive tape Allergy Itching Verified 12/15/18 14:30 Penicillins Allergy Cannot Verified 12/15/18 14:30 Remember sulfamethoxazole Allergy Cannot Verified 12/15/18 14:30 [From Bactrim] Remember trimethoprim [From Bactrim] Allergy Cannot Verified 12/15/18 14:30 Remember Home Meds: Home Meds Acetaminophen/HYDROcodone [[place] 325-5 MG] 1 tab PO Q6H PRN 02/03/16 [History] Aspirin 81 mg PO BEDTIME 02/03/16 [History] ClonazePAM [KlonoPIN] 0.25 mg PO BEDTIME PRN 02/03/16 [History] Ketotifen Fumarate [Zaditor] 1 drop EYEBOTH BID PRN 02/03/16 [History] Levothyroxine [Synthroid] 50 mcg PO ACBREAKFAST 02/03/16 [History] Lisinopril 5 mg PO BEDTIME 02/03/16 [History] Lutein/Zeaxanthin [Lutein-Zeaxanthin 25-5 mg Sfgl] 1 tab PO DAILY 02/03/16 [ History] Multivitamins/Minerals [Vitamins and Minerals] 1 tab PO DAILY 02/03/16 [History] Cholecalciferol (Vitamin D3) [Vitamin D3] 1 cap PO DAILY 11/14/16 [History] Clobetasol [Clobetasol Propionate 0.05% Cream] 15 gm TOP BID PRN 12/12/18 [ History] Ondansetron [Zofran] 4 mg PO Q6H PRN 12/12/18 [History] Ranitidine HCl [Zantac 75] 75 mg PO BID 12/12/18 [History] traMADol [Ultram] 50 mg PO BID 12/12/18 [History] Past Medical History HEENT History: Reports: Cataract, Impaired Vision Cardiovascular History: Reports: Hypertension Respiratory History: Reports: None Gastrointestinal History: Reports: Chronic Constipation, GI Bleed, Other (See Below) (abdominal pain) Genitourinary History: Reports: UTI, Recurrent COMPTROLLER History: Reports: Musculoskeletal History: Reports: Arthritis Neurological History: Reports: None Psychiatric History: Reports: Anxiety Endocrine/Metabolic History: Reports: Hypothyroidism Hematologic History: Reports: B12 Deficiency Immunologic History: Reports: None Oncologic (Cancer) History: Reports: Cervix Dermatologic History: Reports: None - Infectious Disease History Infectious Disease History: Reports: Chicken Pox, Measles, Mumps, Rubella - Past Surgical History Head Surgeries/Procedures: Reports: None HEENT Surgical History: Reports: Cataract Surgery Cardiovascular Surgical History: Reports: None Respiratory Surgical History: Reports: None GI Surgical History: Reports: Appendectomy, Colonoscopy, EGD Female Surgical History: Reports: Breast Biopsy, Hysterectomy, Salpingo- Oophorectomy Endocrine Surgical History: Reports: None Neurological Surgical History: Reports: None Musculoskeletal Surgical History: Reports: None Oncologic Surgical History: Reports: None Dermatological Surgical History: Reports: None Social & Family History - Family History Family Medical History: Noncontributory - Caffeine Use Caffeine Use: Reports: Coffee ED ROS GENERAL - Review of Systems Review Of Systems: See Below Constitutional: Reports: Chills, Malaise Respiratory: Reports: No Symptoms Cardiovascular: Reports: Blood Pressure Problem Endocrine: Reports: No Symptoms GI/Abdominal: Reports: Abdominal Pain : Reports: Flank Pain Musculoskeletal: Reports: No Symptoms Skin: Reports: No Symptoms Neurological: Reports: No Symptoms Psychiatric: Reports: No Symptoms Hematologic/Lymphatic: Reports: No Symptoms Immunologic: Reports: No Symptoms ED EXAM, GENERAL - Physical Exam Exam: See Below Exam Limited By: No Limitations General Appearance: Alert, WD/WN, No Apparent Distress Ears: Normal External Exam, Normal Canal, Hearing Grossly Normal, Normal TMs Nose: Normal Inspection, Normal Mucosa, No Blood Throat/Mouth: Normal Inspection, Normal Lips, Normal Oropharynx, Normal Voice Head: Atraumatic, Normocephalic Neck: Normal Inspection, Supple, Non-Tender, Full Range of Motion Respiratory/Chest: No Respiratory Distress, Lungs Clear Cardiovascular: Other (irregular at times.) GI/Abdominal: Normal Bowel Sounds, Soft, No Distention (Female) Exam: Deferred Rectal (Female) Exam: Deferred Back Exam: Normal Inspection Extremities: Normal Inspection Neurological: Alert, Oriented, CN II-XII Intact, Normal Cognition, Normal Gait, Normal Reflexes, No Motor/Sensory Deficits Psychiatric: Normal Affect, Normal Mood Skin Exam: Warm, Dry, Intact, Normal Color, No Rash Lymphatic: No Adenopathy Course - Vital Signs Text/Narrative:: History of elevated labile blood pressures. Today fluctuates with time present. Takes medication at PM for BP. Feels better at this time with fluids, voided 400ml clear urine. Discussed with Collin Patton. Will provide today's ceftriaxone IV and will continue fluids as feeling better at this time. Last Recorded V/S: Last Vital Signs Temp 36.8 C 12/15/18 13:06 Pulse 107 H 12/15/18 16:22 Resp 22 H 12/15/18 16:22 BP 130/78 12/15/18 16:22 Pulse Ox 99 12/15/18 16:22 - Orders/Labs/Meds Orders: Active Orders 24 hr Category Date Time Status Sodium Chloride 0.9% [Normal Saline] 1,000 ml Med 12/15/18 14:00 Active IV ASDIRECTED Medication Orders Sodium Chloride (Normal Saline) 1,000 mls @ 75 mls/hr IV ASDIRECTED [facility] Last Admin: 12/15/18 13:58 Dose: 75 mls/hr Labs: Laboratory Tests 12/15/18 12/15/18 12/15/18 Range/Units 13:35 13:35 14:40 WBC 7.64 (5.00-10.00) 10^3/uL RBC 4.52 (3.80-5.50) 10^6/uL Hgb 15.1 (12.0-16.0) g/dL Hct 43.4 (37.0-47.0) % MCV 96.0 H (82.0-92.0) fL MCH 33.4 H (27.0-31.0) pg MCHC 34.8 (32.0-36.0) g/dL RDW 13.0 (11.5-14.5) % Plt Count 219 (150-400) 10^3/uL MPV 8.8 (7.4-10.4) fL Immature Gran % (Auto) 0.1 (0.0-5.0) % Neut % (Auto) 84.0 H (50.0-70.0) % Lymph % (Auto) 11.4 L (20.0-40.0) % [place] % (Auto) 4.3 (2.0-8.0) % Eos % (Auto) 0.1 L (1.0-3.0) % Baso % (Auto) 0.1 (0.0-1.0) % Immature Gran # (Auto) 0.01 (0.00-0.50) 10^3/uL Neut # (Auto) 6.41 (2.50-7.00) 10^3/uL Lymph # (Auto) 0.87 L (1.00-4.00) 10^3/uL [place] # (Auto) 0.33 (0.10-0.80) 10^3/uL Eos # (Auto) 0.01 L (0.10-0.30) 10^3/uL Baso # (Auto) 0.01 (0.00-0.10) 10^3/uL Sodium 144 (136-145) mmol/L Potassium 4.6 (3.3-5.3) mmol/L Chloride 104 (98-115) mmol/L Carbon Dioxide 28.2 (21.0-32.0) mmol/L Anion Gap 16.4 H (5-15) mmol/L BUN 15 (6-25) mg/dL Creatinine 0.67 (0.51-1.17) mg/dL Est Cr Clr Drug Dosing 28.72 mL/min Estimated GFR (MDRD) > 60 mL/min Glucose 94 (75 - 99) mg/dL Calcium 9.2 (8.7-10.3) mg/dL Total Bilirubin 0.4 (0.2-1.0) mg/dL AST 46 H (15-37) U/L ALT 37 (12-78) U/L Alkaline Phosphatase 77 (46-116) IU/L Total Protein 6.6 (6.4-8.2) g/dL Albumin 3.66 (3.00-4.80) g/dL Amylase 115 (25-125) U/L Lipase 126 (73-393) U/L Specimen Type Urincc Urine Color Light yellow (YELLOW) Urine Appearance Clear (CLEAR) Urine pH 7.0 (5.0-9.0) Ur Specific [place] 1.010 (1.005-1.030) Urine Protein Negative (NEGATIVE) mg/dL Urine Glucose (UA) Negative (NEGATIVE) mg/dL Urine Ketones Negative (NEGATIVE) mg/dL Urine Occult Blood Trace-intact H (NEGATIVE) Urine Nitrite Negative (NEGATIVE) Urine Bilirubin Negative (NEGATIVE) Urine Urobilinogen 0.2 (0.2-1.0) E.U./dL Ur Leukocyte Esterase Negative (NEGATIVE) Urine RBC 5-10 H (0-5) /HPF Urine WBC 0-5 (0-5) /HPF Ur Epithelial Cells Rare /LPF Urine Bacteria Not seen (NONE TO FEW) /HPF Meds: Medications Generic Name Dose Route Start Last Admin Trade Name Freq PRN Reason Stop Dose Admin Sodium Chloride 1,000 mls @ 75 mls/hr 12/15/18 14:00 12/15/18 13:58 Normal Saline IV 75 mls/hr ASDIRECTED [facility] Administration Discontinued Medications Generic Name Dose Route Start Last Admin Trade Name Freq PRN Reason Stop Dose Admin Ceftriaxone Sodium 1 gm 12/15/18 14:32 12/15/18 16:12 Rocephin IVPUSH 12/15/18 14:33 1 gm ONETIME ONE Administration - Re-Assessments/Exams Free Text/Narrative Re-Assessment/Exam: 12/15/18 16:46 Feeling much better with 400ml infused plus ceftriaxone and sips H2O. 2 slices toast with no nausea awaiting discharge. Departure - Departure Time of Disposition: 16:48 Disposition: Home, Self-Care 01 Condition: Good Clinical Impression: UTI, Urinary tract infectious disease - Discharge Information *PRESCRIPTION DRUG MONITORING PROGRAM REVIEWED*: Not Applicable *COPY OF PRESCRIPTION DRUG MONITORING REPORT IN PATIENT LORI: Not Applicable Referrals: Faith Duarte PA-C [Primary Care Provider] - Forms: ED Department Discharge Additional Instructions: Home rest with sipping on water. Avoid activity tonight. Eat and drink healthy Decrease smoking. Follow-up with clinic/ED as directed for final antibiotic dose. Call or return if questions. - Problem List & Annotations (1) UTI (urinary tract infection), bacterial SNOMED Code(s): 095478239 Code(s): N39.0 - URINARY TRACT INFECTION, SITE NOT SPECIFIED; A49.9 - BACTERIAL INFECTION, UNSPECIFIED Status: Acute Priority: High Current Visit: Yes (2) Hypothyroid SNOMED Code(s): 03394359 Code(s): E03.9 - HYPOTHYROIDISM, UNSPECIFIED Status: Chronic Priority: Low Current Visit: Yes (3) Abdominal pain SNOMED Code(s): 53624658 Code(s): R10.9 - UNSPECIFIED ABDOMINAL PAIN Status: Acute Priority: Medium Current Visit: No Qualifiers: Abdominal location: epigastric Qualified Code(s): R10.13 - Epigastric pain - Problem List Review Problem List Initiated/Reviewed/Updated: Yes - My Orders Last 24 Hours: My Active Orders 12/15/18 14:00 Sodium Chloride 0.9% [Normal Saline] 1,000 ml IV ASDIRECTED - Assessment/Plan Last 24 Hours: My Active Orders 12/15/18 14:00 Sodium Chloride 0.9% [Normal Saline] 1,000 ml IV ASDIRECTED Plan: Home rest with sipping on water. Avoid activity tonight. Eat and drink healthy Decrease smoking. Follow-up with clinic/ED as directed for final antibiotic dose. Call or return if questions.
[2018-12-15] MEDS ORDERED: Sodium Chloride 0.9% 1,000 ML IV SCH (14:00)
[2018-12-15 14:02] LABS: ANION GAP 16.4 mmol/L (5-15); CHLORIDE,CL 104 mmol/L (98-115); SODIUM,NA 144 mmol/L (136-145)
[2018-12-15] MEDS ORDERED: cefTRIAXone 1 GM Vial IVPUSH ONE (14:32)
[2018-12-15 16:23] VITALS: BP 130/78
== END 2018-12-15 17:20 | disposition home or self-care (01) ==
LOC: KA.ED 12:50
DX: N39.0 Urinary tract infection, site not specified (principal); F41.9 Anxiety disorder, unspecified; E03.9 Hypothyroidism, unspecified; I10 Essential (primary) hypertension; Z79.899 Other long term (current) drug therapy; Z79.82 Long term (current) use of aspirin; Z91.09 Other allergy status, other than to drugs and biological substances; Z88.0 Allergy status to penicillin; Z88.2 Allergy status to sulfonamides; Z88.1 Allergy status to other antibiotic agents
CPT/HCPCS: 80053; 81001; 82150; 83690; 85025; 96361; 96374; 99284; J0696; J7030

== ENCOUNTER 2019-03-30 11:10 | Observation (INO) | payer MEDICARE, OTHER ==
[2019-03-30] MEDS ORDERED: Sodium Chloride 0.9% 10 ML Syringe FLUSH PRN (11:29)
[2019-03-30] MEDS ORDERED: Sodium Chloride 0.9% 1,000 ML IV ONE (11:30)
[2019-03-30 12:00] LABS: ANION GAP 14.6 mmol/L (5-15); CHLORIDE,CL 105 mmol/L (98-115); SODIUM,NA 141 mmol/L (136-145)
[2019-03-30] MEDS ORDERED: Labetalol 100 MG/20 ML MDV IVPUSH ONE ×2 (12:03→12:42)
--- NOTE | 2019-03-30 12:04 | EDM.PDOC ---
ED HPI GENERAL MEDICAL PROBLEM - General Chief Complaint: General Stated Complaint: WEAKNESS;LETHARGIC Time Seen by Provider: 03/30/19 11:49 Source of Information: Reports: Patient, Family (two daughters) History Limitations: Reports: No Limitations - History of Present Illness INITIAL COMMENTS - FREE TEXT/NARRATIVE: Patient presents with general weakness for 4 days. She says that's all, just really tired and weak. Denies any pain, N/V or asymmetric weakness. She denies dysuria but thinks it should be checked because another time she had a major UTI and only symptom was nausea. Appetite is good and she is eating well she and daughters tell me. She isn't drinking as much as she should. BM daily and no diarrhea or constipation. She takes thyroid and has a nodule that is evaluated yearly with US. - Related Data Allergies Allergy/AdvReac Type Severity Reaction Status Date / Time adhesive tape Allergy Itching Verified 12/15/18 14:30 Penicillins Allergy Cannot Verified 12/15/18 14:30 Remember sulfamethoxazole Allergy Cannot Verified 12/15/18 14:30 [From Bactrim] Remember trimethoprim [From Bactrim] Allergy Cannot Verified 12/15/18 14:30 Remember Home Meds: Home Meds Acetaminophen/HYDROcodone [Morgan 325-5 MG] 1 tab PO BID PRN 02/03/16 [History] Aspirin 81 mg PO BEDTIME 02/03/16 [History] ClonazePAM [KlonoPIN] 0.25 mg PO BEDTIME PRN 02/03/16 [History] Ketotifen Fumarate [Zaditor] 1 drop EYEBOTH BID PRN 02/03/16 [History] Levothyroxine [Synthroid] 50 mcg PO ACBREAKFAST 02/03/16 [History] Lisinopril 5 mg PO BEDTIME 02/03/16 [History] Lutein/Zeaxanthin [Lutein-Zeaxanthin 25-5 mg Sfgl] 1 tab PO DAILY 02/03/16 [ History] Multivitamins/Minerals [Vitamins and Minerals] 1 tab PO DAILY 02/03/16 [History] Cholecalciferol (Vitamin D3) [Vitamin D3] 1,000 units PO DAILY 11/14/16 [History ] Clobetasol [Clobetasol Propionate 0.05% Cream] 15 gm TOP BID PRN 12/12/18 [ History] Ondansetron [Zofran] 4 mg PO Q6H PRN 12/12/18 [History] Ranitidine HCl [Zantac 75] 75 mg PO BID 12/12/18 [History] traMADol [Ultram] 50 mg PO BID PRN 12/12/18 [History] Acetaminophen [Mapap] 650 mg PO Q4H PRN 03/30/19 [History] Past Medical History HEENT History: Reports: Cataract, Impaired Vision Cardiovascular History: Reports: Hypertension Respiratory History: Reports: None Gastrointestinal History: Reports: Chronic Constipation, GI Bleed, Other (See Below) Genitourinary History: Reports: UTI, Recurrent [employer] History: Reports: Musculoskeletal History: Reports: Arthritis Neurological History: Reports: None Psychiatric History: Reports: Anxiety Endocrine/Metabolic History: Reports: Hypothyroidism Hematologic History: Reports: B12 Deficiency Immunologic History: Reports: None Oncologic (Cancer) History: Reports: Cervix Dermatologic History: Reports: None - Infectious Disease History Infectious Disease History: Reports: Chicken Pox, Measles, Mumps, Rubella - Past Surgical History Head Surgeries/Procedures: Reports: None HEENT Surgical History: Reports: Cataract Surgery Cardiovascular Surgical History: Reports: None Respiratory Surgical History: Reports: None GI Surgical History: Reports: Appendectomy, Colonoscopy, EGD Female Surgical History: Reports: Breast Biopsy, Hysterectomy, Salpingo- Oophorectomy Endocrine Surgical History: Reports: None Neurological Surgical History: Reports: None Musculoskeletal Surgical History: Reports: None Oncologic Surgical History: Reports: None Dermatological Surgical History: Reports: None Social & Family History - Family History Family Medical History: Noncontributory - Tobacco Use Smoking Status *Q: Current Every Day Smoker Years of Tobacco use: 73 Packs/Tins Daily: 0.1 - Caffeine Use Caffeine Use: Reports: Coffee - Recreational Drug Use Recreational Drug Use: No ED ROS GENERAL - Review of Systems Review Of Systems: See Below Constitutional: Reports: Malaise, Weakness. Denies: Fever, Chills, Decreased Appetite HEENT: Denies: Ear Pain, Throat Pain, Throat Swelling, Vision Change Respiratory: Denies: Shortness of Breath, Cough Cardiovascular: Denies: Chest Pain, Edema, Lightheadedness, Syncope Endocrine: Reports: Fatigue GI/Abdominal: Denies: Abdominal Pain, Anorexia, Constipation, Diarrhea, Decreased Appetite, Nausea, Vomiting : Denies: Dysuria, Flank Pain Musculoskeletal: Denies: Neck Pain, Shoulder Pain, Arm Pain, Back Pain, Hand Pain, Leg Pain Skin: Denies: Cyanosis, Jaundice, Mottled, Pallor, Diaphoresis Neurological: Reports: Difficulty Walking (can't walk long due to weakness, fairly chronic). Denies: Confusion, Dizziness, Seizure, Syncope, Trouble Speaking (speaking much makes her tired) Psychiatric: Denies: Agitation, Anxiety, Confusion ED EXAM, GENERAL - Physical Exam Exam: See Below Exam Limited By: No Limitations General Appearance: Alert, WD/WN, No Apparent Distress Eye Exam: Bilateral Eye: EOMI, Normal Inspection, PERRL Ears: Normal External Exam, Hearing Grossly Normal Nose: Normal Inspection, No Blood Throat/Mouth: Normal Inspection, Normal Lips, Normal Voice, No Airway Compromise Head: Atraumatic, Normocephalic Neck: Normal Inspection, Full Range of Motion Respiratory/Chest: No Respiratory Distress, Lungs Clear, Normal Breath Sounds, No Accessory Muscle Use Cardiovascular: Regular Rate, Rhythm, No Murmur GI/Abdominal: Soft, No Organomegaly, No Distention, Tender (over bladder) Back Exam: Normal Inspection, Full Range of Motion. No: CVA Tenderness (L), CVA Tenderness (R) Extremities: Normal Inspection, Normal Range of Motion, Non-Tender, No Pedal Edema Neurological: Alert, Oriented, Normal Cognition, No Motor/Sensory Deficits Psychiatric: Normal Affect, Normal Mood Skin Exam: Warm, Dry, Intact, Normal Color, No Rash Course - Vital Signs Last Recorded V/S: Last Vital Signs Temp 98.2 F 03/30/19 11:31 Pulse 75 03/30/19 13:48 Resp 26 H 03/30/19 13:48 BP 173/82 H 03/30/19 13:48 Pulse Ox 95 03/30/19 13:48 - Orders/Labs/Meds Orders: Active Orders 24 hr Category Date Time Status Patient Status Manage Transfer [TRANSFER] Routine ADT 03/30/19 13:57 Ordered Patient Status [ADT] Routine ADT 03/30/19 13:54 Active EKG Documentation Completion [RC] ASDIRECTED Care 03/30/19 11:29 Active Sodium Chloride 0.9% [Saline Flush] Med 03/30/19 11:29 Active 10 ml FLUSH Q8HR PRN Saline Lock Insert [OM.PC] Routine Oth 03/30/19 11:29 Ordered Resuscitation Status Stat Resus Stat 03/30/19 13:59 Ordered Medication Orders Sodium Chloride (Saline Flush) 10 ml FLUSH Q8HR PRN PRN Reason: keep vein open Last Admin: 03/30/19 11:38 Dose: 10 ml Labs: Laboratory Tests 03/30/19 03/30/19 03/30/19 Range/Units 10:30 10:30 11:30 WBC 4.59 L (5.00-10.00) 10^3/uL RBC 4.25 (3.80-5.50) 10^6/uL Hgb 14.3 (12.0-16.0) g/dL Hct 41.9 (37.0-47.0) % MCV 98.6 H (82.0-92.0) fL MCH 33.6 H (27.0-31.0) pg MCHC 34.1 (32.0-36.0) g/dL RDW 13.0 (11.5-14.5) % Plt Count 193 (150-400) 10^3/uL MPV 8.6 (7.4-10.4) fL Immature Gran % (Auto) 0.2 (0.0-5.0) % Neut % (Auto) 64.1 (50.0-70.0) % Lymph % (Auto) 28.3 (20.0-40.0) % Alpine % (Auto) 6.1 (2.0-8.0) % Eos % (Auto) 1.3 (1.0-3.0) % Baso % (Auto) 0.0 (0.0-1.0) % Immature Gran # (Auto) 0.01 (0.00-0.50) 10^3/uL Neut # (Auto) 2.94 (2.50-7.00) 10^3/uL Lymph # (Auto) 1.30 (1.00-4.00) 10^3/uL Alpine # (Auto) 0.28 (0.10-0.80) 10^3/uL Eos # (Auto) 0.06 L (0.10-0.30) 10^3/uL Baso # (Auto) 0.00 (0.00-0.10) 10^3/uL Sodium 141 (136-145) mmol/L Potassium 4.3 (3.3-5.3) mmol/L Chloride 105 (98-115) mmol/L Carbon Dioxide 25.7 (21.0-32.0) mmol/L Anion Gap 14.6 (5-15) mmol/L BUN 23 (6-25) mg/dL Creatinine 0.64 (0.51-1.17) mg/dL Est Cr Clr Drug Dosing 27.41 mL/min Estimated GFR (MDRD) > 60 mL/min Glucose 93 (75 - 99) mg/dL Calcium 8.8 (8.7-10.3) mg/dL Total Bilirubin 0.2 (0.2-1.0) mg/dL AST 21 (15-37) U/L ALT 32 (12-78) U/L Alkaline Phosphatase 75 (46-116) IU/L Troponin I (0.00-0.070) ng/mL Total Protein 6.0 L (6.4-8.2) g/dL Albumin 3.32 (3.00-4.80) g/dL TSH, Ultra Sensitive 1.710 (0.340-4.820) uIU/mL Specimen Type Urine Color (YELLOW) Urine Appearance (CLEAR) Urine pH (5.0-9.0) Ur Specific [place] (1.005-1.030) Urine Protein (NEGATIVE) mg/dL Urine Glucose (UA) (NEGATIVE) mg/dL Urine Ketones (NEGATIVE) mg/dL Urine Occult Blood (NEGATIVE) Urine Nitrite (NEGATIVE) Urine Bilirubin (NEGATIVE) Urine Urobilinogen (0.2-1.0) E.U./dL Ur Leukocyte Esterase (NEGATIVE) Urine RBC (0-5) /HPF Urine WBC (0-5) /HPF Ur Epithelial Cells /LPF Urine Bacteria (NONE TO FEW) /HPF 03/30/19 03/30/19 Range/Units 11:30 12:10 WBC (5.00-10.00) 10^3/uL RBC (3.80-5.50) 10^6/uL Hgb (12.0-16.0) g/dL Hct (37.0-47.0) % MCV (82.0-92.0) fL MCH (27.0-31.0) pg MCHC (32.0-36.0) g/dL RDW (11.5-14.5) % Plt Count (150-400) 10^3/uL MPV (7.4-10.4) fL Immature Gran % (Auto) (0.0-5.0) % Neut % (Auto) (50.0-70.0) % Lymph % (Auto) (20.0-40.0) % Alpine % (Auto) (2.0-8.0) % Eos % (Auto) (1.0-3.0) % Baso % (Auto) (0.0-1.0) % Immature Gran # (Auto) (0.00-0.50) 10^3/uL Neut # (Auto) (2.50-7.00) 10^3/uL Lymph # (Auto) (1.00-4.00) 10^3/uL Alpine # (Auto) (0.10-0.80) 10^3/uL Eos # (Auto) (0.10-0.30) 10^3/uL Baso # (Auto) (0.00-0.10) 10^3/uL Sodium (136-145) mmol/L Potassium (3.3-5.3) mmol/L Chloride (98-115) mmol/L Carbon Dioxide (21.0-32.0) mmol/L Anion Gap (5-15) mmol/L BUN (6-25) mg/dL Creatinine (0.51-1.17) mg/dL Est Cr Clr Drug Dosing mL/min Estimated GFR (MDRD) mL/min Glucose (75 - 99) mg/dL Calcium (8.7-10.3) mg/dL Total Bilirubin (0.2-1.0) mg/dL AST (15-37) U/L ALT (12-78) U/L Alkaline Phosphatase (46-116) IU/L Troponin I 0.08 H* (0.00-0.070) ng/mL Total Protein (6.4-8.2) g/dL Albumin (3.00-4.80) g/dL TSH, Ultra Sensitive (0.340-4.820) uIU/mL Specimen Type Urincc Urine Color Yellow (YELLOW) Urine Appearance Clear (CLEAR) Urine pH 5.5 (5.0-9.0) Ur Specific [place] 1.010 (1.005-1.030) Urine Protein Trace H (NEGATIVE) mg/dL Urine Glucose (UA) Negative (NEGATIVE) mg/dL Urine Ketones Negative (NEGATIVE) mg/dL Urine Occult Blood Negative (NEGATIVE) Urine Nitrite Negative (NEGATIVE) Urine Bilirubin Negative (NEGATIVE) Urine Urobilinogen 0.2 (0.2-1.0) E.U./dL Ur Leukocyte Esterase Negative (NEGATIVE) Urine RBC 0-5 (0-5) /HPF Urine WBC 0-5 (0-5) /HPF Ur Epithelial Cells Few /LPF Urine Bacteria Few (NONE TO FEW) /HPF Meds: Medications Generic Name Dose Route Start Last Admin Trade Name Freq PRN Reason Stop Dose Admin Sodium Chloride 10 ml 03/30/19 11:29 03/30/19 11:38 Saline Flush FLUSH 10 ml Q8HR PRN Administration keep vein open Discontinued Medications Generic Name Dose Route Start Last Admin Trade Name Freq PRN Reason Stop Dose Admin Sodium Chloride 1,000 mls @ 999 mls/hr 03/30/19 11:30 03/30/19 11:38 Normal Saline IV 03/30/19 12:30 999 mls/hr .BOLUS ONE Administration Labetalol HCl 5 mg 03/30/19 12:03 03/30/19 12:24 Normodyne IVPUSH 03/30/19 12:04 5 mg ONETIME ONE Administration Protocol Labetalol HCl 10 mg 03/30/19 12:42 03/30/19 12:52 Normodyne IVPUSH 03/30/19 12:43 10 mg ONETIME ONE Administration Protocol Metoprolol Tartrate 50 mg 03/30/19 13:13 03/30/19 13:17 Lopressor PO 03/30/19 13:14 50 mg ONETIME ONE Administration - Re-Assessments/Exams Free Text/Narrative Re-Assessment/Exam: 03/30/19 12:43 Patient stable. BP up to 214/64. Labetolol 5 mg IVP brought it down to 198 so will give 10 mg now. Normally start with 10 mg but with patient's 63 pounds body weight I started lower initially. 03/30/19 12:54 The daughters tell me that at baseline patient on a good day can stand or walk up to 30 minutes at a time but the last two weeks she has been getting more tired and weak, especially the last 4 days. She can only walk 10-15 feet across the room before her legs get so weak she has to sit down. They haven't noticed any cough either. Patient has been a lifelong smoker but not large amounts, just about 6 cigarettes a day. Sats 95% on RA. 03/30/19 13:13 Discussed case with Marquez Robbins NP. He pulled up a previous EKG which didn' t have inverted T-waves in V2 so will run a troponin now to ruleout cardiac event. 03/30/19 13:17 BP had come down to 160 systolic but is no back above 180. Since it is responding to beta blockers will give oral Metoprolol now. 03/30/19 13:59 Troponin is 0.08, discussed with patient and daughter that this may be the normal level for her as it is essentially normal range or it is possible that there was a cardiac event up to a few days ago and the troponin is now trending down from that. Marquez Robbins NP accepted for admission to observation. Patient is feeling better after the IV fluids. Departure - Departure Time of Disposition: 14:02 Disposition: Refer to Observation Condition: Good Clinical Impression: Dehydration, Generalized weakness Hypertension Qualifiers: Hypertension type: unspecified Qualified Code(s): I10 - Essential (primary) hypertension - Discharge Information Referrals: Elisa Omlos PA-C [Primary Care Provider] - Forms: ED Department Discharge - My Orders Last 24 Hours: My Active Orders 03/30/19 11:29 EKG Documentation Completion [RC] ASDIRECTED Sodium Chloride 0.9% [Saline Flush] 10 ml FLUSH Q8HR PRN Saline Lock Insert [OM.PC] Routine 03/30/19 13:54 Patient Status [ADT] Routine 03/30/19 13:57 Patient Status Manage Transfer [TRANSFER] Routine 03/30/19 13:59 Resuscitation Status Stat - Assessment/Plan Last 24 Hours: My Active Orders 03/30/19 11:29 EKG Documentation Completion [RC] ASDIRECTED Sodium Chloride 0.9% [Saline Flush] 10 ml FLUSH Q8HR PRN Saline Lock Insert [OM.PC] Routine 03/30/19 13:54 Patient Status [ADT] Routine 03/30/19 13:57 Patient Status Manage Transfer [TRANSFER] Routine 03/30/19 13:59 Resuscitation Status Stat
[2019-03-30] MEDS ORDERED: Metoprolol Tartrate 50 MG Tab PO ONE (13:13)
[2019-03-30] MEDS ORDERED: ClonazePAM 0.5 MG Tab PO PRN (17:58)
[2019-03-30] MEDS ORDERED: Acetaminophen 325 MG Tab PO PRN (17:58)
[2019-03-30] MEDS ORDERED: Ondansetron 4 MG Tab.DIS PO PRN ×2 (17:58→18:34)
--- NOTE | 2019-03-30 18:12 | PCM.HP ---
H&P History of Present Illness - General Date of Service: 03/30/19 Admit Problem/Dx: Admission Diagnosis/Problem Admission Diagnosis/Problem Dehydration - History of Present Illness Initial Comments - Free Text/Narative: 88-year-old female was admitted into observation through the ED when she came in due to her day history of generalized weakness and fatigue however admits to not feeling well the past 2 weeks. Denies any pain, N/V. Denied dysuria, admits to being nauseated. Her family report her appetite has been good however has not drink much fluids past few days. Normal daily bowel movements no diarrhea or constipation. Past medical histories include hypothyroidism, HTN, GERD, chronic pain on pain management contract - Related Data Allergies/Adverse Reactions: Allergies Allergy/AdvReac Type Severity Reaction Status Date / Time adhesive tape Allergy Itching Verified 12/15/18 14:30 Penicillins Allergy Cannot Verified 12/15/18 14:30 Remember sulfamethoxazole Allergy Cannot Verified 12/15/18 14:30 [From Bactrim] Remember trimethoprim [From Bactrim] Allergy Cannot Verified 12/15/18 14:30 Remember Home Medications: Home Meds Acetaminophen/HYDROcodone [[place] 325-5 MG] 1 tab PO BID PRN 02/03/16 [History] Aspirin 81 mg PO BEDTIME 02/03/16 [History] ClonazePAM [KlonoPIN] 0.25 mg PO BEDTIME PRN 02/03/16 [History] Ketotifen Fumarate [Zaditor] 1 drop EYEBOTH BID PRN 02/03/16 [History] Levothyroxine [Synthroid] 50 mcg PO ACBREAKFAST 02/03/16 [History] Lisinopril 5 mg PO BEDTIME 02/03/16 [History] Lutein/Zeaxanthin [Lutein-Zeaxanthin 25-5 mg Sfgl] 1 tab PO DAILY 02/03/16 [ History] Multivitamins/Minerals [Vitamins and Minerals] 1 tab PO DAILY 02/03/16 [History] Cholecalciferol (Vitamin D3) [Vitamin D3] 1,000 units PO DAILY 11/14/16 [History ] Clobetasol [Clobetasol Propionate 0.05% Cream] 15 gm TOP BID PRN 12/12/18 [ History] Ondansetron [Zofran] 4 mg PO Q6H PRN 12/12/18 [History] Ranitidine HCl [Zantac 75] 75 mg PO BID 12/12/18 [History] traMADol [Ultram] 50 mg PO BID PRN 12/12/18 [History] Acetaminophen [Mapap] 650 mg PO Q4H PRN 03/30/19 [History] Past Medical History HEENT History: Reports: Cataract, Impaired Vision Cardiovascular History: Reports: Hypertension Respiratory History: Reports: None Gastrointestinal History: Reports: Chronic Constipation, GI Bleed, Other (See Below) Genitourinary History: Reports: UTI, 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: Musculoskeletal History: Reports: Arthritis Neurological History: Reports: None Psychiatric History: Reports: Anxiety Endocrine/Metabolic History: Reports: Hypothyroidism Hematologic History: Reports: B12 Deficiency Immunologic History: Reports: None Oncologic (Cancer) History: Reports: Cervix Dermatologic History: Reports: None - Infectious Disease History Infectious Disease History: Reports: Chicken Pox, Measles, Mumps, Rubella - Past Surgical History Head Surgeries/Procedures: Reports: None HEENT Surgical History: Reports: Cataract Surgery Cardiovascular Surgical History: Reports: None Respiratory Surgical History: Reports: None GI Surgical History: Reports: Appendectomy, Colonoscopy, EGD Female Surgical History: Reports: Breast Biopsy, Hysterectomy, Salpingo- Oophorectomy Endocrine Surgical History: Reports: None Neurological Surgical History: Reports: None Musculoskeletal Surgical History: Reports: None Oncologic Surgical History: Reports: None Dermatological Surgical History: Reports: None Social & Family History - Family History Family Medical History: Noncontributory HEENT: Reports: None Cardiac: Reports: Other (See Below) (mother with diabetes kidney disease along with lung and bone cancer) Respiratory: Reports: None GI: Reports: None : Reports: None OBGYN: Reports: None Musculoskeletal: Reports: None Neurological: Reports: None Psychiatric: Reports: None Endocrine/Metabolic: Reports: None Hematologic: Reports: None Immunologic: Reports: None Dermatologic: Reports: None Oncologic: Reports: Bone, Colon, Esophageal, Lung, Thyroid Other Oncologic Family History: extensive family with cancer, father pancreatic , sister thyroid cancer, brother colon cancer, brother lung cancer, daughter cervical cancer - Tobacco Use Smoking Status *Q: Current Every Day Smoker Years of Tobacco use: 73 Packs/Tins Daily: 0.1 - Caffeine Use Caffeine Use: Reports: Coffee - Recreational Drug Use Recreational Drug Use: No H&P Review of Systems - Review of Systems: Review Of Systems: See Below General: Reports: Weakness. Denies: Fever, Chills, Decreased Appetite, Weight Loss HEENT: Reports: No Symptoms Pulmonary: Reports: No Symptoms Cardiovascular: Reports: Blood Pressure Problem. Denies: Chest Pain Gastrointestinal: Reports: Nausea Genitourinary: Reports: No Symptoms Musculoskeletal: Reports: Joint Pain (bilateral knee pain--chronic) Skin: Reports: No Symptoms Psychiatric: Reports: No Symptoms Hematologic/Lymphatic: Reports: No Symptoms Immunologic: Reports: No Symptoms Exam - Exam Exam: See Below - Vital Signs Vital Signs: Last Vital Signs Temp 99 F 03/30/19 14:38 Pulse 59 L 03/30/19 17:37 Resp 20 03/30/19 14:38 BP 189/90 H 03/30/19 17:37 Pulse Ox 93 L 03/30/19 14:38 Weight: 63 lb - Exam Quality Assessment: No: Supplemental Oxygen General: Alert, Oriented, 4 Neck: Supple, Trachea Midline, 2 Lungs: Clear to Auscultation, Normal Respiratory Effort Cardiovascular: Regular Rate, Regular Rhythm GI/Abdominal Exam: Soft Rectal (Female) Exam: Deferred Back Exam: No: CVA Tenderness (L), CVA Tenderness (R) Extremities: No Pedal Edema, Normal Capillary Refill. No: Pedal Edema Peripheral Pulses: 2+: Radial (L), Radial (R) Skin: Warm, Dry, Intact Neurological: Cranial Nerves Intact, Reflexes Equal Bilateral Neuro Extensive - Mental Status: Alert, Oriented x3, Normal Mood/Affect, Normal Cognition Neuro Extensive - Motor, Sensory, Reflexes: CN II-XII Intact, Normal Gait, Normal Reflexes Psychiatric: Alert, Normal Affect, Normal Mood - Patient Data Lab Results Last 24 hrs: Laboratory Results - last 24 hr 03/30/19 03/30/19 03/30/19 Range/Units 10:30 10:30 11:30 WBC 4.59 L (5.00-10.00) 10^3/uL RBC 4.25 (3.80-5.50) 10^6/uL Hgb 14.3 (12.0-16.0) g/dL Hct 41.9 (37.0-47.0) % MCV 98.6 H (82.0-92.0) fL MCH 33.6 H (27.0-31.0) pg MCHC 34.1 (32.0-36.0) g/dL RDW 13.0 (11.5-14.5) % Plt Count 193 (150-400) 10^3/uL MPV 8.6 (7.4-10.4) fL Immature Gran % (Auto) 0.2 (0.0-5.0) % Neut % (Auto) 64.1 (50.0-70.0) % Lymph % (Auto) 28.3 (20.0-40.0) % [place] % (Auto) 6.1 (2.0-8.0) % Eos % (Auto) 1.3 (1.0-3.0) % Baso % (Auto) 0.0 (0.0-1.0) % Immature Gran # (Auto) 0.01 (0.00-0.50) 10^3/uL Neut # (Auto) 2.94 (2.50-7.00) 10^3/uL Lymph # (Auto) 1.30 (1.00-4.00) 10^3/uL [place] # (Auto) 0.28 (0.10-0.80) 10^3/uL Eos # (Auto) 0.06 L (0.10-0.30) 10^3/uL Baso # (Auto) 0.00 (0.00-0.10) 10^3/uL Sodium 141 (136-145) mmol/L Potassium 4.3 (3.3-5.3) mmol/L Chloride 105 (98-115) mmol/L Carbon Dioxide 25.7 (21.0-32.0) mmol/L Anion Gap 14.6 (5-15) mmol/L BUN 23 (6-25) mg/dL Creatinine 0.64 (0.51-1.17) mg/dL Est Cr Clr Drug Dosing 27.41 mL/min Estimated GFR (MDRD) > 60 mL/min Glucose 93 (75 - 99) mg/dL Calcium 8.8 (8.7-10.3) mg/dL Total Bilirubin 0.2 (0.2-1.0) mg/dL AST 21 (15-37) U/L ALT 32 (12-78) U/L Alkaline Phosphatase 75 (46-116) IU/L Troponin I (0.00-0.070) ng/mL Total Protein 6.0 L (6.4-8.2) g/dL Albumin 3.32 (3.00-4.80) g/dL TSH, Ultra Sensitive 1.710 (0.340-4.820) uIU/mL Specimen Type Urine Color (YELLOW) Urine Appearance (CLEAR) Urine pH (5.0-9.0) Ur Specific Curtis (1.005-1.030) Urine Protein (NEGATIVE) mg/dL Urine Glucose (UA) (NEGATIVE) mg/dL Urine Ketones (NEGATIVE) mg/dL Urine Occult Blood (NEGATIVE) Urine Nitrite (NEGATIVE) Urine Bilirubin (NEGATIVE) Urine Urobilinogen (0.2-1.0) E.U./dL Ur Leukocyte Esterase (NEGATIVE) Urine RBC (0-5) /HPF Urine WBC (0-5) /HPF Ur Epithelial Cells /LPF Urine Bacteria (NONE TO FEW) /HPF 03/30/19 03/30/19 Range/Units 11:30 12:10 WBC (5.00-10.00) 10^3/uL RBC (3.80-5.50) 10^6/uL Hgb (12.0-16.0) g/dL Hct (37.0-47.0) % MCV (82.0-92.0) fL MCH (27.0-31.0) pg MCHC (32.0-36.0) g/dL RDW (11.5-14.5) % Plt Count (150-400) 10^3/uL MPV (7.4-10.4) fL Immature Gran % (Auto) (0.0-5.0) % Neut % (Auto) (50.0-70.0) % Lymph % (Auto) (20.0-40.0) % [place] % (Auto) (2.0-8.0) % Eos % (Auto) (1.0-3.0) % Baso % (Auto) (0.0-1.0) % Immature Gran # (Auto) (0.00-0.50) 10^3/uL Neut # (Auto) (2.50-7.00) 10^3/uL Lymph # (Auto) (1.00-4.00) 10^3/uL [place] # (Auto) (0.10-0.80) 10^3/uL Eos # (Auto) (0.10-0.30) 10^3/uL Baso # (Auto) (0.00-0.10) 10^3/uL Sodium (136-145) mmol/L Potassium (3.3-5.3) mmol/L Chloride (98-115) mmol/L Carbon Dioxide (21.0-32.0) mmol/L Anion Gap (5-15) mmol/L BUN (6-25) mg/dL Creatinine (0.51-1.17) mg/dL Est Cr Clr Drug Dosing mL/min Estimated GFR (MDRD) mL/min Glucose (75 - 99) mg/dL Calcium (8.7-10.3) mg/dL Total Bilirubin (0.2-1.0) mg/dL AST (15-37) U/L ALT (12-78) U/L Alkaline Phosphatase (46-116) IU/L Troponin I 0.08 H* (0.00-0.070) ng/mL Total Protein (6.4-8.2) g/dL Albumin (3.00-4.80) g/dL TSH, Ultra Sensitive (0.340-4.820) uIU/mL Specimen Type Urincc Urine Color Yellow (YELLOW) Urine Appearance Clear (CLEAR) Urine pH 5.5 (5.0-9.0) Ur Specific [place] 1.010 (1.005-1.030) Urine Protein Trace H (NEGATIVE) mg/dL Urine Glucose (UA) Negative (NEGATIVE) mg/dL Urine Ketones Negative (NEGATIVE) mg/dL Urine Occult Blood Negative (NEGATIVE) Urine Nitrite Negative (NEGATIVE) Urine Bilirubin Negative (NEGATIVE) Urine Urobilinogen 0.2 (0.2-1.0) E.U./dL Ur Leukocyte Esterase Negative (NEGATIVE) Urine RBC 0-5 (0-5) /HPF Urine WBC 0-5 (0-5) /HPF Ur Epithelial Cells Few /LPF Urine Bacteria Few (NONE TO FEW) /HPF Result Diagrams: 03/30/19 10:30 03/30/19 10:30 Problem List Initiated/Reviewed/Updated: Yes Orders Last 24hrs: Active Orders 24 hr Category Date Time Status Up ad Melly [RC] ASDIRECTED Care 03/30/19 14:38 Active Vital Signs [RC] 0700,1100,1500,1900,2300,0300 Care 03/30/19 14:38 Active Regular Diet [DIET] Diet 03/30/19 Dinner Active TROPONIN I [CHEM] AM Lab 03/31/19 05:11 Ordered Acetaminophen [Tylenol] Med 03/30/19 17:58 Ordered 650 mg PO Q4H PRN Aspirin Med 03/30/19 21:00 Ordered 81 mg PO BEDTIME ClonazePAM [KlonoPIN] Med 03/30/19 17:58 Ordered 0.25 mg PO BEDTIME PRN Levothyroxine [Synthroid] Med 03/31/19 07:30 Ordered 50 mcg PO ACBREAKFAST Lisinopril [Prinivil] Med 03/30/19 21:00 Ordered 10 mg PO BEDTIME Ondansetron Med 03/30/19 17:58 Ordered 4 mg PO Q6H PRN Ranitidine HCl [Zantac 75] Med 03/30/19 21:00 Ordered 75 mg PO BID Resuscitation Status Stat Resus Stat 03/30/19 13:59 Ordered Medication Orders Acetaminophen (Tylenol) 650 mg PO Q4H PRN PRN Reason: Pain Aspirin (Aspirin) 81 mg PO BEDTIME [facility] Clonazepam (Klonopin) 0.25 mg PO BEDTIME PRN PRN Reason: Insomnia Levothyroxine Sodium (Synthroid) 50 mcg PO ACBREAKFAST [facility] Lisinopril (Prinivil) 10 mg PO BEDTIME [facility] Non-Formulary Medication (Ondansetron) 4 mg PO Q6H PRN PRN Reason: Nausea Non-Formulary Medication (Ranitidine Hcl [Zantac 75]) 75 mg PO BID [facility] Assessment/Plan Comment:: History of present illness 88-year-old female was admitted into observation through the ED when she came in due to her day history of generalized weakness and fatigue however admits to not feeling well the past 2 weeks. Denies any pain, N/V. Denied dysuria, admits to being nauseated. Her family report her appetite has been good however has not drink much fluids past few days. Normal daily bowel movements no diarrhea or constipation. Past medical histories include hypothyroidism, HTN, GERD, chronic pain on pain management contract Primary Hospital problems Hypertension, uncontrolled Rule out MS Weakness Overall plan tonight --Observation status --Increase home-based lisinopril --Needs improved blood pressure control, parameters set --Repeat troponin tonight --Hold all narcotics
[2019-03-30] MEDS ORDERED: Aspirin 81 MG Tab.Chew PO SCH (21:00)
[2019-03-30] MEDS ORDERED: Lisinopril 10 MG Tab PO SCH (21:00)
[2019-03-31] MEDS ORDERED: Levothyroxine 50 MCG Tab PO SCH (07:30)
[2019-03-31] MEDS ORDERED: Acetaminophen/HYDROcodone 325-5 MG Tab PO PRN (07:59)
[2019-03-31] MEDS ORDERED: Metoprolol Tartrate 5 MG/5 ML SDV IVPUSH ONE (11:13)
[2019-03-31 18:57] VITALS: BP 156/73; PULSE 70
--- NOTE | 2019-04-13 11:24 | PCM.DCSUM1 ---
Discharge Summary - Hospital Course Diagnosis: Stroke: No - Discharge Data Discharge Date: 03/31/19 Discharge Disposition: Home, Self-Care 01 Condition: Good - Patient Instructions Diet: Usual Diet as Tolerated Activity: As Tolerated Driving: Do Not Drive Showering/Bathing: May Shower Notify Provider of: Nausea and/or Vomiting Other/Special Instructions: --Come to hospital for blood pressure checks Wednesday and Wednesday. --I increased your blood pressure medication lisinopril to 10 mg daily. --Make a follow-up appointment either with myself or your primary care provider or [facility]. --If any chest pain or dizziness or any concerns call the hospital or come to the emergency room - Discharge Plan *PRESCRIPTION DRUG MONITORING PROGRAM REVIEWED*: Not Applicable *COPY OF PRESCRIPTION DRUG MONITORING REPORT IN PATIENT LORI: Not Applicable Prescriptions/Med Rec: Lisinopril 10 mg PO DAILY #30 tablet Home Medications: Home Meds Acetaminophen/HYDROcodone [[place] 325-5 MG] 1 tab PO BID PRN 02/03/16 [History] Aspirin 81 mg PO BEDTIME 02/03/16 [History] ClonazePAM [KlonoPIN] 0.25 mg PO BEDTIME PRN 02/03/16 [History] Ketotifen Fumarate [Zaditor] 1 drop EYEBOTH BID PRN 02/03/16 [History] Levothyroxine [Synthroid] 50 mcg PO ACBREAKFAST 02/03/16 [History] Lutein/Zeaxanthin [Lutein-Zeaxanthin 25-5 mg Sfgl] 1 tab PO DAILY 02/03/16 [ History] Multivitamins/Minerals [Vitamins and Minerals] 1 tab PO DAILY 02/03/16 [History] Clobetasol [Clobetasol Propionate 0.05% Cream] 15 gm TOP BID PRN 12/12/18 [ History] Ondansetron [Zofran] 4 mg PO Q6H PRN 12/12/18 [History] Ranitidine HCl [Zantac 75] 75 mg PO BID 12/12/18 [History] traMADol [Ultram] 50 mg PO BID PRN 12/12/18 [History] Acetaminophen [Mapap] 650 mg PO Q4H PRN 03/30/19 [History] Lisinopril 10 mg PO DAILY #30 tablet 03/31/19 [Rx] Cholecalciferol (Vitamin D3) [Vitamin D3] 1,000 unit PO DAILY 04/06/19 [History] Clobetasol [Clobetasol Propionate 0.05% Cream] 1 applic TOP DAILY PRN 04/06/19 [ History] ClonazePAM [KlonoPIN] 0.125 mg PO DAILY PRN 04/06/19 [History] Meloxicam 7.5 mg PO WITHBREAKFAST 04/06/19 [History] Metoprolol Tartrate 50 mg PO BID 04/06/19 [History] - Discharge Summary/Plan Comment DC Time >30 min.: No Discharge Summary/Plan Comment: final diagnosis Hypertension, Improved Rule out AR, this has been ruled out Weakness, we'll get x-ray of knees as OP History PLeasant 88-year-old female was admitted into observation through the ED when she came in due generalized weakness and fatigue and not feelilng well 2 days prior to this admission. HER BP has been elevated at home. Denied any pain, N/ V. Denied dysuria, admits to being nauseated. Her family report her appetite has been good however has not drink much fluids past few days. Normal daily bowel movements no diarrhea or constipation. Past medical histories include hypothyroidism, HTN, GERD, chronic pain on pain management contract. hospital course Went well, She was admitted in OBS for improved BP control and she had her Lisonpril increased. She had a very slight troponin increase however quickly down likely 2/2 elevated Blood pressure. She was discharged to f/u at [facility]. - Patient Data Vitals - Most Recent: Last Vital Signs Temp 96.1 F 03/31/19 14:51 Pulse 70 03/31/19 18:56 Resp 22 H 03/31/19 14:51 BP 156/73 H 03/31/19 18:56 Pulse Ox 99 03/31/19 18:56 Weight - Most Recent: 63 lb Med Orders - Current: Current Medications Discontinued Medications Acetaminophen (Tylenol) 650 mg PO Q4H PRN PRN Reason: Pain Last Admin: 03/31/19 07:32 Dose: 650 mg Hydrocodone Bitart/Acetaminophen ([place] 325-5 Mg) 1 tab PO BID PRN PRN Reason: moderate pain Last Admin: 03/31/19 15:30 Dose: 1 tab Aspirin (Aspirin) 81 mg PO BEDTIME [facility] Last Admin: 03/30/19 21:15 Dose: 81 mg Clonazepam (Klonopin) 0.25 mg PO BEDTIME PRN PRN Reason: Insomnia Sodium Chloride (Normal Saline) 1,000 mls @ 999 mls/hr IV .BOLUS ONE Stop: 03/30/19 12:30 Last Admin: 03/30/19 11:38 Dose: 999 mls/hr Labetalol HCl (Normodyne) 5 mg IVPUSH ONETIME ONE; Protocol Stop: 03/30/19 12:04 Last Admin: 03/30/19 12:24 Dose: 5 mg Labetalol HCl (Normodyne) 10 mg IVPUSH ONETIME ONE; Protocol Stop: 03/30/19 12:43 Last Admin: 03/30/19 12:52 Dose: 10 mg Levothyroxine Sodium (Synthroid) 50 mcg PO ACBREAKFAST [facility] Last Admin: 03/31/19 07:32 Dose: 50 mcg Lisinopril (Prinivil) 10 mg PO BEDTIME [facility] Last Admin: 03/30/19 21:15 Dose: 10 mg Metoprolol Tartrate (Lopressor) 50 mg PO ONETIME ONE Stop: 03/30/19 13:14 Last Admin: 03/30/19 13:17 Dose: 50 mg Metoprolol Tartrate (Lopressor) 5 mg IVPUSH ONETIME ONE Stop: 03/31/19 11:14 Last Admin: 03/31/19 11:31 Dose: 5 mg Ondansetron HCl (Zofran Odt) 4 mg PO Q6H PRN PRN Reason: Nausea Ondansetron HCl (Zofran Odt) 4 mg PO Q6H PRN PRN Reason: Nausea/Vomiting Ranitidine HCl (Zantac) 75 mg PO BID [facility] Last Admin: 03/31/19 09:50 Dose: Not Given Sodium Chloride (Saline Flush) 10 ml FLUSH Q8HR PRN PRN Reason: keep vein open Last Admin: 03/30/19 11:38 Dose: 10 ml
== END 2019-03-31 19:10 | disposition home or self-care (01) ==
LOC: KA.ED 11:10 → KA.MS 13:54
PROVIDERS: ADMIT Physician Assistant Surgical; ATTEND Family Medicine
DX: E86.0 Dehydration (principal); I10 Essential (primary) hypertension; R53.1 Weakness; R53.83 Other fatigue; E03.9 Hypothyroidism, unspecified; K21.9 Gastro-esophageal reflux disease without esophagitis; G89.29 Other chronic pain; M19.90 Unspecified osteoarthritis, unspecified site; F41.9 Anxiety disorder, unspecified; F17.210 Nicotine dependence, cigarettes, uncomplicated; Z88.1 Allergy status to other antibiotic agents; Z88.0 Allergy status to penicillin; Z88.2 Allergy status to sulfonamides; Z91.048 Other nonmedicinal substance allergy status; Z79.82 Long term (current) use of aspirin; Z79.899 Other long term (current) drug therapy
CPT/HCPCS: 36415; 80053; 81001; 84443; 84484; 85025; 93005; 96361; 96374; 96375; 99285; A9270; G0378; J3490; J7030; 99284

== ENCOUNTER 2019-04-06 17:15 | Emergency (ER) | payer MEDICARE, OTHER ==
[2019-04-06 17:30] VITALS: BP 169/84; PULSE 71
--- NOTE | 2019-04-06 17:33 | EDM.PDOC ---
ED HPI GENERAL MEDICAL PROBLEM - General Chief Complaint: Cardiovascular Problem Stated Complaint: HIGH BLOOD PRESSURE? Time Seen by Provider: 04/06/19 17:15 Source of Information: Reports: Patient History Limitations: Reports: No Limitations - History of Present Illness INITIAL COMMENTS - FREE TEXT/NARRATIVE: 88 YO WF presents to ER with concerns of elevated BP at home today. Pt was started on metoprolol 50mg PO BID yesterday due to uncontrolled hypertension. Pt denies chest pain, headache, dizziness, lightheadedness, confusion or shortness of breath. Pt took her evening dose of metoprolol early (1600) due to BP 180/100 and feeling a little "fuzzy". Pt currently feels fine and wants to go home. BP 168/86 HR 78. Discussed staying on current BP medications (norvasc 10mg PO QD, metoprolol 50mg PO BID) and follow up in clinic this week for recheck. Consider echocardiogram as outpatient. Pt instructed to return to ER for severe JOHNSON or chest pain or worsening symptoms. Discussed case with Marquez GUARDADO who agreed with management. Onset: Today Duration: Chronic Location: Reports: Generalized Severity: Mild Improves with: Reports: Medication Worsens with: Reports: None Associated Symptoms: Denies: Confusion, Chest Pain, Cough, cough w sputum, Diaphoresis, Fever/Chills, Headaches, Loss of Appetite, Malaise, Nausea/Vomiting , Rash, Seizure, Shortness of Breath, Syncope, Weakness - Related Data Allergies Allergy/AdvReac Type Severity Reaction Status Date / Time adhesive tape Allergy Itching Verified 04/06/19 17:24 Penicillins Allergy Cannot Verified 04/06/19 17:24 Remember sulfamethoxazole Allergy Cannot Verified 04/06/19 17:24 [From Bactrim] Remember trimethoprim [From Bactrim] Allergy Cannot Verified 04/06/19 17:24 Remember Home Meds: Home Meds Acetaminophen/HYDROcodone [[place] 325-5 MG] 1 tab PO BID PRN 02/03/16 [History] Aspirin 81 mg PO BEDTIME 02/03/16 [History] ClonazePAM [KlonoPIN] 0.25 mg PO BEDTIME PRN 02/03/16 [History] Ketotifen Fumarate [Zaditor] 1 drop EYEBOTH BID PRN 02/03/16 [History] Levothyroxine [Synthroid] 50 mcg PO ACBREAKFAST 02/03/16 [History] Lutein/Zeaxanthin [Lutein-Zeaxanthin 25-5 mg Sfgl] 1 tab PO DAILY 02/03/16 [ History] Multivitamins/Minerals [Vitamins and Minerals] 1 tab PO DAILY 02/03/16 [History] Cholecalciferol (Vitamin D3) [Vitamin D3] 1,000 units PO DAILY 11/14/16 [History ] Clobetasol [Clobetasol Propionate 0.05% Cream] 15 gm TOP BID PRN 12/12/18 [ History] Ondansetron [Zofran] 4 mg PO Q6H PRN 12/12/18 [History] Ranitidine HCl [Zantac 75] 75 mg PO BID 12/12/18 [History] traMADol [Ultram] 50 mg PO BID PRN 12/12/18 [History] Acetaminophen [Mapap] 650 mg PO Q4H PRN 03/30/19 [History] Lisinopril 10 mg PO DAILY #30 tablet 03/31/19 [Rx] Past Medical History HEENT History: Reports: Cataract, Impaired Vision Cardiovascular History: Reports: Hypertension Respiratory History: Reports: None Gastrointestinal History: Reports: Chronic Constipation, GI Bleed, Other (See Below) Genitourinary History: Reports: UTI, 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: Musculoskeletal History: Reports: Arthritis Neurological History: Reports: None Psychiatric History: Reports: Anxiety Endocrine/Metabolic History: Reports: Hypothyroidism Hematologic History: Reports: B12 Deficiency Immunologic History: Reports: None Oncologic (Cancer) History: Reports: Cervix Dermatologic History: Reports: None - Infectious Disease History Infectious Disease History: Reports: Chicken Pox, Measles, Mumps, Rubella - Past Surgical History Head Surgeries/Procedures: Reports: None HEENT Surgical History: Reports: Cataract Surgery Cardiovascular Surgical History: Reports: None Respiratory Surgical History: Reports: None GI Surgical History: Reports: Appendectomy, Colonoscopy, EGD Female Surgical History: Reports: Breast Biopsy, Hysterectomy, Salpingo- Oophorectomy Endocrine Surgical History: Reports: None Neurological Surgical History: Reports: None Musculoskeletal Surgical History: Reports: None Oncologic Surgical History: Reports: None Dermatological Surgical History: Reports: None Social & Family History - Family History Family Medical History: Noncontributory HEENT: Reports: None Cardiac: Reports: Other (See Below) (mother with diabetes kidney disease along with lung and bone cancer) Respiratory: Reports: None GI: Reports: None : Reports: None OBGYN: Reports: None Musculoskeletal: Reports: None Neurological: Reports: None Psychiatric: Reports: None Endocrine/Metabolic: Reports: None Hematologic: Reports: None Immunologic: Reports: None Dermatologic: Reports: None Oncologic: Reports: Bone, Colon, Esophageal, Lung, Thyroid Other Oncologic Family History: extensive family with cancer, father pancreatic , sister thyroid cancer, brother colon cancer, brother lung cancer, daughter cervical cancer - Caffeine Use Caffeine Use: Reports: Coffee ED ROS GENERAL - Review of Systems Review Of Systems: See Below Constitutional: Reports: No Symptoms HEENT: Reports: No Symptoms Respiratory: Reports: No Symptoms Cardiovascular: Reports: No Symptoms Endocrine: Reports: No Symptoms GI/Abdominal: Reports: No Symptoms : Reports: No Symptoms Musculoskeletal: Reports: No Symptoms Skin: Reports: No Symptoms Neurological: Reports: No Symptoms Psychiatric: Reports: No Symptoms Hematologic/Lymphatic: Reports: No Symptoms Immunologic: Reports: No Symptoms ED EXAM, GENERAL - Physical Exam Exam: See Below Exam Limited By: No Limitations General Appearance: Alert, WD/WN, No Apparent Distress Eye Exam: Bilateral Eye: EOMI, PERRL Throat/Mouth: Normal Inspection, Normal Lips, Normal Teeth, Normal Gums, Normal Oropharynx, Normal Voice, No Airway Compromise Head: Atraumatic, Normocephalic Neck: Normal Inspection, Supple, Non-Tender, Full Range of Motion Respiratory/Chest: No Respiratory Distress, Lungs Clear, Normal Breath Sounds, No Accessory Muscle Use, Chest Non-Tender Cardiovascular: Normal Peripheral Pulses, Regular Rate, Rhythm, No Edema, No Gallop, No JVD, No Murmur, No Rub GI/Abdominal: Normal Bowel Sounds, Soft, Non-Tender, No Organomegaly, No Distention, No Abnormal Bruit, No Mass Back Exam: Normal Inspection, Full Range of Motion, NT Extremities: Normal Inspection, Normal Range of Motion, Non-Tender, Normal Capillary Refill, No Pedal Edema Neurological: Alert, Oriented, CN II-XII Intact, Normal Cognition, Normal Gait, Normal Reflexes, No Motor/Sensory Deficits Psychiatric: Normal Affect, Normal Mood Skin Exam: Warm, Dry, Intact, Normal Color, No Rash Lymphatic: No Adenopathy Course - Vital Signs Last Recorded V/S: Last Vital Signs Temp 36.6 C 04/06/19 17:25 Pulse 71 04/06/19 17:25 Resp 16 04/06/19 17:25 BP 169/84 H 04/06/19 17:25 Pulse Ox 95 04/06/19 17:25 Departure - Departure Time of Disposition: 18:09 Disposition: Home, Self-Care 01 Condition: Good Clinical Impression: Labile hypertension Instructions: Hypertension, [id number] Referrals: Marquez Robbins 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 discharge home 2. continue current BP medications as directed by PCP 3. follow up with PCP this week for recheck 4. return to ER for worsening symptoms- severe headache, chest pain, confusion or shortness of breath 5. consider echocardiogram as outpatient per PCP - Assessment/Plan Assessment:: 1. labile hypertension- controlled Plan: 1. discharge home 2. continue current BP medications as directed by PCP 3. follow up with PCP this week for recheck 4. return to ER for worsening symptoms- severe headache, chest pain, confusion or shortness of breath 5. consider echocardiogram as outpatient per PCP
== END 2019-04-06 18:15 | disposition home or self-care (01) ==
LOC: KA.ED 17:15
DX: I10 Essential (primary) hypertension (principal); F41.9 Anxiety disorder, unspecified; E03.9 Hypothyroidism, unspecified; Z79.82 Long term (current) use of aspirin; Z79.899 Other long term (current) drug therapy; Z88.0 Allergy status to penicillin; Z88.1 Allergy status to other antibiotic agents; Z88.2 Allergy status to sulfonamides; Z91.09 Other allergy status, other than to drugs and biological substances
CPT/HCPCS: 99283

== ENCOUNTER 2019-09-07 10:49 | Observation (INO) | payer MEDICARE, OTHER ==
[2019-09-07] MEDS ORDERED: Sodium Chloride 0.9% 1,000 ML IV SCH ×3 (11:15→12:45)
[2019-09-07] MEDS ORDERED: Sodium Chloride 0.9% 10 ML Syringe FLUSH PRN (11:26)
--- NOTE | 2019-09-07 11:32 | EDM.PDOC ---
ED HPI GENERAL MEDICAL PROBLEM - General Chief Complaint: General Stated Complaint: DEHYDRATED,PAIN IN STOMACH Time Seen by Provider: 09/07/19 11:10 Source of Information: Reports: Patient, EMS, Family History Limitations: Reports: No Limitations - History of Present Illness INITIAL COMMENTS - FREE TEXT/NARRATIVE: 89 YO WF presents to ER by EMS with complaints of nausea, weakness and elevated blood pressure which has been recurrent for months but became worse today. Pt and daughter reports labile BP that has been managed closely by PCP. Pt currently on lisinopril 30mg QD and Norvasc 2.5mg QD. Pt reports she just feels sick. Pt denies chest pain, shortness of breath, diaphoresis or vomiting. Pt with nausea and states she has a "fuzzy feeling" in her head but denies headache , dizziness or lightheadedness. Pt alert and oriented x 4 and states she is currently not nauseated. Onset: Unknown/Unsure Duration: Intermittent, Waxing/Waning Location: Reports: Generalized Severity: Mild Improves with: Reports: None Worsens with: Reports: None Associated Symptoms: Reports: Loss of Appetite, Malaise, Nausea/Vomiting, Weakness. Denies: Confusion, Chest Pain, Fever/Chills, Headaches, Shortness of Breath, Syncope - Related Data Allergies Allergy/AdvReac Type Severity Reaction Status Date / Time adhesive tape Allergy Itching Verified 09/07/19 11:31 Penicillins Allergy Cannot Verified 09/07/19 11:31 Remember sulfamethoxazole Allergy Cannot Verified 09/07/19 11:31 [From Bactrim] Remember trimethoprim [From Bactrim] Allergy Cannot Verified 09/07/19 11:31 Remember Home Meds: Home Meds Acetaminophen/HYDROcodone [[place] 325-5 MG] 1 tab PO BID PRN 02/03/16 [History] Aspirin 81 mg PO BEDTIME 02/03/16 [History] ClonazePAM [KlonoPIN] 0.25 mg PO BEDTIME PRN 02/03/16 [History] Ketotifen Fumarate [Zaditor] 1 drop EYEBOTH BID PRN 02/03/16 [History] Levothyroxine [Synthroid] 50 mcg PO ACBREAKFAST 02/03/16 [History] Lutein/Zeaxanthin [Lutein-Zeaxanthin 25-5 mg Sfgl] 1 tab PO DAILY 02/03/16 [ History] Multivitamins/Minerals [Vitamins and Minerals] 1 tab PO DAILY 02/03/16 [History] Clobetasol [Clobetasol Propionate 0.05% Cream] 15 gm TOP BID PRN 12/12/18 [ History] Ondansetron [Zofran] 4 mg PO Q6H PRN 12/12/18 [History] Ranitidine HCl [Zantac 75] 75 mg PO BID 12/12/18 [History] traMADol [Ultram] 50 mg PO BID PRN 12/12/18 [History] Acetaminophen [Mapap] 650 mg PO Q4H PRN 03/30/19 [History] Lisinopril 10 mg PO DAILY #30 tablet 03/31/19 [Rx] Cholecalciferol (Vitamin D3) [Vitamin D3] 1,000 unit PO DAILY 04/06/19 [History] Clobetasol [Clobetasol Propionate 0.05% Cream] 1 applic TOP DAILY PRN 04/06/19 [ History] ClonazePAM [KlonoPIN] 0.125 mg PO DAILY PRN 04/06/19 [History] Meloxicam 7.5 mg PO WITHBREAKFAST 04/06/19 [History] Metoprolol Tartrate 50 mg PO BID 04/06/19 [History] Past Medical History HEENT History: Reports: Cataract, Impaired Vision Cardiovascular History: Reports: Hypertension Respiratory History: Reports: None Gastrointestinal History: Reports: Chronic Constipation, GI Bleed, Other (See Below) Genitourinary History: Reports: UTI, Recurrent DOG AND CAT 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: Musculoskeletal History: Reports: Arthritis Neurological History: Reports: None Psychiatric History: Reports: Anxiety Endocrine/Metabolic History: Reports: Hypothyroidism Hematologic History: Reports: B12 Deficiency Immunologic History: Reports: None Oncologic (Cancer) History: Reports: Cervix Dermatologic History: Reports: None - Infectious Disease History Infectious Disease History: Reports: Chicken Pox, Measles, Mumps, Rubella - Past Surgical History Head Surgeries/Procedures: Reports: None HEENT Surgical History: Reports: Cataract Surgery Cardiovascular Surgical History: Reports: None Respiratory Surgical History: Reports: None GI Surgical History: Reports: Appendectomy, Colonoscopy, EGD Female Surgical History: Reports: Breast Biopsy, Hysterectomy, Salpingo- Oophorectomy Endocrine Surgical History: Reports: None Neurological Surgical History: Reports: None Musculoskeletal Surgical History: Reports: None Oncologic Surgical History: Reports: None Dermatological Surgical History: Reports: None Social & Family History - Family History Family Medical History: Noncontributory HEENT: Reports: None Cardiac: Reports: Other (See Below) (mother with diabetes kidney disease along with lung and bone cancer) Respiratory: Reports: None GI: Reports: None : Reports: None OBGYN: Reports: None Musculoskeletal: Reports: None Neurological: Reports: None Psychiatric: Reports: None Endocrine/Metabolic: Reports: None Hematologic: Reports: None Immunologic: Reports: None Dermatologic: Reports: None Oncologic: Reports: Bone, Colon, Esophageal, Lung, Thyroid Other Oncologic Family History: extensive family with cancer, father pancreatic , sister thyroid cancer, brother colon cancer, brother lung cancer, daughter cervical cancer - Caffeine Use Caffeine Use: Reports: Coffee ED ROS GENERAL - Review of Systems Review Of Systems: See Below Constitutional: Reports: Malaise, Weakness, Fatigue HEENT: Reports: No Symptoms Respiratory: Reports: No Symptoms Cardiovascular: Reports: No Symptoms Endocrine: Reports: No Symptoms GI/Abdominal: Reports: Abdominal Pain, Nausea : Reports: Frequency, Urgency Musculoskeletal: Reports: No Symptoms Skin: Reports: No Symptoms Neurological: Reports: Weakness Psychiatric: Reports: No Symptoms Hematologic/Lymphatic: Reports: No Symptoms Immunologic: Reports: No Symptoms ED EXAM, GENERAL - Physical Exam Exam: See Below Exam Limited By: No Limitations General Appearance: Alert, WD/WN, No Apparent Distress Eye Exam: Bilateral Eye: EOMI, PERRL Head: Atraumatic, Normocephalic Neck: Normal Inspection, Supple, Non-Tender, Full Range of Motion Respiratory/Chest: No Respiratory Distress, Lungs Clear, Normal Breath Sounds, No Accessory Muscle Use, Chest Non-Tender Cardiovascular: Normal Peripheral Pulses, Regular Rate, Rhythm, No Edema, No Gallop, No JVD, No Murmur, No Rub GI/Abdominal: Normal Bowel Sounds, Soft, Non-Tender, No Organomegaly, No Distention, No Abnormal Bruit, No Mass Back Exam: Normal Inspection, Full Range of Motion, NT Extremities: Normal Inspection, Normal Range of Motion, Non-Tender, Normal Capillary Refill, No Pedal Edema Neurological: Alert, Oriented, CN II-XII Intact, Normal Cognition, Normal Gait, Normal Reflexes, No Motor/Sensory Deficits Psychiatric: Normal Affect, Normal Mood Skin Exam: Warm, Dry, Intact, Normal Color, No Rash Lymphatic: No Adenopathy EKG INTERPRETATION EKG Date: 09/07/19 Time: 11:35 Rhythm: NSR Rate (Beats/Min): 86 [place]: Normal P-Wave: Present QRS: Normal ST-T: Normal QT: Normal Course - Vital Signs Last Recorded V/S: Last Vital Signs Temp 37.2 C 09/07/19 11:03 Pulse 93 09/07/19 11:03 Resp 25 H 09/07/19 11:03 BP 182/93 H 09/07/19 11:03 Pulse Ox 97 09/07/19 11:03 - Orders/Labs/Meds Orders: Active Orders 24 hr Category Date Time Status EKG Documentation Completion [RC] ASDIRECTED Care 09/07/19 11:11 Active EKG Documentation Completion [RC] ASDIRECTED Care 09/07/19 11:26 Inactive Peripheral IV Care [RC] . DIRECTED Care 09/07/19 11:26 Active Sodium Chloride 0.9% [Normal Saline] 1,000 ml Med 09/07/19 11:15 Active IV ASDIRECTED Sodium Chloride 0.9% [Normal Saline] 1,000 ml Med 09/07/19 11:30 Active IV ASDIRECTED Sodium Chloride 0.9% [Saline Flush] Med 09/07/19 11:26 Active 10 ml FLUSH Q8HR PRN Peripheral IV Insertion Adult [OM.PC] Routine Oth 09/07/19 11:26 Ordered Medication Orders Sodium Chloride (Normal Saline) 1,000 mls @ 125 mls/hr IV ASDIRECTED [facility] Last Admin: 09/07/19 11:34 Dose: 125 mls/hr Sodium Chloride (Normal Saline) 1,000 mls @ 125 mls/hr IV ASDIRECTED [facility] Sodium Chloride (Saline Flush) 10 ml FLUSH Q8HR PRN PRN Reason: keep vein open Labs: Laboratory Tests 09/07/19 09/07/19 09/07/19 Range/Units 11:11 11:40 11:40 WBC 5.12 (5.00-10.00) 10^3/uL RBC 4.28 (3.80-5.50) 10^6/uL Hgb 14.6 (12.0-16.0) g/dL Hct 43.4 (37.0-47.0) % MCV 101.4 H (82.0-92.0) fL MCH 34.1 H (27.0-31.0) pg MCHC 33.6 (32.0-36.0) g/dL RDW 13.4 (11.5-14.5) % Plt Count 194 (150-400) 10^3/uL MPV 8.5 (7.4-10.4) fL Immature Gran % (Auto) 0.2 (0.0-5.0) % Neut % (Auto) 78.3 H (50.0-70.0) % Lymph % (Auto) 15.8 L (20.0-40.0) % [place] % (Auto) 4.9 (2.0-8.0) % Eos % (Auto) 0.6 L (1.0-3.0) % Baso % (Auto) 0.2 (0.0-1.0) % Immature Gran # (Auto) 0.01 (0.00-0.50) 10^3/uL Neut # (Auto) 4.01 (2.50-7.00) 10^3/uL Lymph # (Auto) 0.81 L (1.00-4.00) 10^3/uL [place] # (Auto) 0.25 (0.10-0.80) 10^3/uL Eos # (Auto) 0.03 L (0.10-0.30) 10^3/uL Baso # (Auto) 0.01 (0.00-0.10) 10^3/uL Sodium 138 (136-145) mmol/L Potassium 4.6 (3.3-5.3) mmol/L Chloride 105 (98-115) mmol/L Carbon Dioxide 23.3 (21.0-32.0) mmol/L Anion Gap 14.3 (5-15) mmol/L BUN 30 H (6-25) mg/dL Creatinine 0.83 (0.51-1.17) mg/dL Est Cr Clr Drug Dosing 19.74 mL/min Estimated GFR (MDRD) > 60 mL/min Glucose 101 H (75 - 99) mg/dL Calcium 9.5 (8.7-10.3) mg/dL Total Bilirubin 0.4 (0.2-1.0) mg/dL AST 16 (15-37) U/L ALT 22 (12-78) U/L Alkaline Phosphatase 59 (46-116) IU/L Creatine Kinase (26-276) U/L CK-MB (CK-2) (0.00-4.30) ng/mL Troponin I (0.00-0.070) ng/mL Total Protein 6.6 (6.4-8.2) g/dL Albumin 3.77 (3.00-4.80) g/dL Lipase 139 (73-393) U/L Specimen Type Urincc Urine Color Yellow (YELLOW) Urine Appearance Clear (CLEAR) Urine pH 5.5 (5.0-9.0) Ur Specific [place] 1.020 (1.005-1.030) Urine Protein 100 H (NEGATIVE) mg/dL Urine Glucose (UA) Negative (NEGATIVE) mg/dL Urine Ketones Negative (NEGATIVE) mg/dL Urine Occult Blood Negative (NEGATIVE) Urine Nitrite Negative (NEGATIVE) Urine Bilirubin Negative (NEGATIVE) Urine Urobilinogen 0.2 (0.2-1.0) E.U./dL Ur Leukocyte Esterase Negative (NEGATIVE) Urine RBC 0-5 (0-5) /HPF Urine WBC 10-20 H (0-5) /HPF Ur Epithelial Cells Few /LPF Urine Bacteria Rare (NONE TO FEW) /HPF Hyaline Casts Occasional H (NEGATIVE) /LPF Urine Mucus Few H (NEGATIVE) /LPF 09/07/ Range/Units 11:40 WBC (5.00-10.00) 10^3/uL RBC (3.80-5.50) 10^6/uL Hgb (12.0-16.0) g/dL Hct (37.0-47.0) % MCV (82.0-92.0) fL MCH (27.0-31.0) pg MCHC (32.0-36.0) g/dL RDW (11.5-14.5) % Plt Count (150-400) 10^3/uL MPV (7.4-10.4) fL Immature Gran % (Auto) (0.0-5.0) % Neut % (Auto) (50.0-70.0) % Lymph % (Auto) (20.0-40.0) % [place] % (Auto) (2.0-8.0) % Eos % (Auto) (1.0-3.0) % Baso % (Auto) (0.0-1.0) % Immature Gran # (Auto) (0.00-0.50) 10^3/uL Neut # (Auto) (2.50-7.00) 10^3/uL Lymph # (Auto) (1.00-4.00) 10^3/uL [place] # (Auto) (0.10-0.80) 10^3/uL Eos # (Auto) (0.10-0.30) 10^3/uL Baso # (Auto) (0.00-0.10) 10^3/uL Sodium (136-145) mmol/L Potassium (3.3-5.3) mmol/L Chloride (98-115) mmol/L Carbon Dioxide (21.0-32.0) mmol/L Anion Gap (5-15) mmol/L BUN (6-25) mg/dL Creatinine (0.51-1.17) mg/dL Est Cr Clr Drug Dosing mL/min Estimated GFR (MDRD) mL/min Glucose (75 - 99) mg/dL Calcium (8.7-10.3) mg/dL Total Bilirubin (0.2-1.0) mg/dL AST (15-37) U/L ALT (12-78) U/L Alkaline Phosphatase (46-116) IU/L Creatine Kinase 37 (26-276) U/L CK-MB (CK-2) 2.10 (0.00-4.30) ng/mL Troponin I < 0.04 (0.00-0.070) ng/mL Total Protein (6.4-8.2) g/dL Albumin (3.00-4.80) g/dL Lipase (73-393) U/L Specimen Type Urine Color (YELLOW) Urine Appearance (CLEAR) Urine pH (5.0-9.0) Ur Specific [place] (1.005-1.030) Urine Protein (NEGATIVE) mg/dL Urine Glucose (UA) (NEGATIVE) mg/dL Urine Ketones (NEGATIVE) mg/dL Urine Occult Blood (NEGATIVE) Urine Nitrite (NEGATIVE) Urine Bilirubin (NEGATIVE) Urine Urobilinogen (0.2-1.0) E.U./dL Ur Leukocyte Esterase (NEGATIVE) Urine RBC (0-5) /HPF Urine WBC (0-5) /HPF Ur Epithelial Cells /LPF Urine Bacteria (NONE TO FEW) /HPF Hyaline Casts (NEGATIVE) /LPF Urine Mucus (NEGATIVE) /LPF Meds: Medications Generic Name Dose Route Start Last Admin Trade Name Freq PRN Reason Stop Dose Admin Sodium Chloride 1,000 mls @ 125 mls/hr 09/07/19 11:15 09/07/19 11:34 Normal Saline IV 125 mls/hr ASDIRECTED [facility] Administration Sodium Chloride 1,000 mls @ 125 mls/hr 09/07/19 11:30 Normal Saline IV ASDIRECTED [facility] Sodium Chloride 10 ml 09/07/19 11:26 Saline Flush FLUSH Q8HR PRN keep vein open Discontinued Medications Generic Name Dose Route Start Last Admin Trade Name Freq PRN Reason Stop Dose Admin Ondansetron HCl 4 mg 09/07/19 11:31 Zofran IVPUSH 09/07/19 11:32 ONETIME ONE Departure - Departure Time of Disposition: 12:41 Disposition: Refer to Observation Condition: Fair Clinical Impression: Generalized weakness - Discharge Information Referrals: Marquez Robbins [employer] [Primary Care Provider] - Forms: ED Department Discharge Sepsis Event Note - Evaluation Sepsis Screening Result: No Definite Risk - Focused Exam Vital Signs: Vital Signs Temp Pulse Resp BP Pulse Ox 09/07/19 11:03 37.2 C 93 25 H 182/93 H 97 Date Exam was Performed: 09/07/19 Time Exam was Performed: 12:40 - My Orders Last 24 Hours: My Active Orders 09/07/19 11:11 EKG Documentation Completion [RC] ASDIRECTED 09/07/19 11:15 Sodium Chloride 0.9% [Normal Saline] 1,000 ml IV ASDIRECTED 09/07/19 11:26 EKG Documentation Completion [RC] ASDIRECTED Peripheral IV Care [RC] . DIRECTED Sodium Chloride 0.9% [Saline Flush] 10 ml FLUSH Q8HR PRN Peripheral IV Insertion Adult [OM.PC] Routine 09/07/19 11:30 Sodium Chloride 0.9% [Normal Saline] 1,000 ml IV ASDIRECTED - Assessment/Plan Last 24 Hours: My Active Orders 09/07/19 11:11 EKG Documentation Completion [RC] ASDIRECTED 09/07/19 11:15 Sodium Chloride 0.9% [Normal Saline] 1,000 ml IV ASDIRECTED 09/07/19 11:26 EKG Documentation Completion [RC] ASDIRECTED Peripheral IV Care [RC] . DIRECTED Sodium Chloride 0.9% [Saline Flush] 10 ml FLUSH Q8HR PRN Peripheral IV Insertion Adult [OM.PC] Routine 09/07/19 11:30 Sodium Chloride 0.9% [Normal Saline] 1,000 ml IV ASDIRECTED Assessment:: 1. generalized weakness Plan: 1. admit to medicine- 23 hour obs- Marquez Robbins 2. IVF NS @ 125cc/hr 3. zofran 4mg ODT PRN 4. repeat labs in am
[2019-09-07] MEDS: Ondansetron 4 MG/2 ML SDV IVPUSH ONE ×2 (11:37→15:09)
[2019-09-07 12:10] LABS: ANION GAP 14.3 mmol/L (5-15); CHLORIDE,CL 105 mmol/L (98-115); SODIUM,NA 138 mmol/L (136-145)
[2019-09-07] MEDS ORDERED: Ondansetron 4 MG/2 ML SDV IV PRN (12:43)
[2019-09-07] MEDS ORDERED: ClonazePAM 0.5 MG Tab PO PRN ×2 (15:11)
[2019-09-07] MEDS ORDERED: traMADol 50 MG Tab PO PRN (15:11)
[2019-09-07] MEDS ORDERED: KETOTIFEN FUMARATE EYEBOTH PRN (15:11)
[2019-09-07] MEDS: Acetaminophen/HYDROcodone 325-5 MG Tab PO PRN (15:53)
--- NOTE | 2019-09-07 15:56 | CR ---
[id number] RAD/RAD Abdomen Flat Plate 1V EXAM: RAD Abdomen Flat Plate 1V INDICATION: NAUSEA. COMPARISON: 2016. DISCUSSION: Unobstructed bowel gas pattern. No radiographically evident pneumoperitoneum. Moderate chronic stool burden. Suture line projects over the pelvis. IMPRESSION: As above. Ronaldo Lyles MD 09/07/19 [id number] Thank you for allowing us to participate in the care of your patient.
[2019-09-07] MEDS ORDERED: Naloxegol Oxalate 25 MG Tab PO ONE (16:04)
[2019-09-07] MEDS ORDERED: Magnesium Citrate Solution 296 ML Bottle PO ONE (16:09)
[2019-09-07] MEDS ORDERED: Ondansetron 4 MG Tab.DIS PO PRN (16:15)
[2019-09-07] MEDS ORDERED: Polyethylene Glycol 3350 Powder 17 GM Packet PO ONE (16:23)
[2019-09-07] MEDS ORDERED: Acetaminophen/HYDROcodone 325-5 MG Tab PO ONE (22:55)
[2019-09-08] MEDS ORDERED: Levothyroxine 50 MCG Tab PO SCH (07:30)
[2019-09-08 07:53] LABS: ANION GAP 18.3 mmol/L (5-15); CHLORIDE,CL 107 mmol/L (98-115); SODIUM,NA 140 mmol/L (136-145)
[2019-09-08] MEDS ORDERED: amLODIPine 2.5 MG Tab PO SCH (09:00)
[2019-09-08] MEDS ORDERED: Lisinopril 10 MG Tab PO SCH (09:00)
[2019-09-08] MEDS ORDERED: Lisinopril 10 MG Tab PO ONE (09:52)
--- NOTE | 2019-09-08 09:55 | PCM.HP.2 ---
H&P History of Present Illness - General Date of Service: 09/08/19 Admit Problem/Dx: Admission Diagnosis/Problem Admission Diagnosis/Problem Weakness Source of Information: Patient, Old Records, Provider, RN, Significant Other History Limitations: Reports: No Limitations Bilateral Leg Pain Score (Numeric/FACES): 8 - Related Data Allergies/Adverse Reactions: Allergies Allergy/AdvReac Type Severity Reaction Status Date / Time adhesive tape Allergy Itching Verified 09/07/19 11:31 Penicillins Allergy Cannot Verified 09/07/19 11:31 Remember sulfamethoxazole Allergy Cannot Verified 09/07/19 11:31 [From Bactrim] Remember trimethoprim [From Bactrim] Allergy Cannot Verified 09/07/19 11:31 Remember Home Medications: Home Meds Acetaminophen/HYDROcodone [[place] 325-5 MG] 1 tab PO BID PRN 02/03/16 [History] Aspirin 81 mg PO BEDTIME 02/03/16 [History] ClonazePAM [KlonoPIN] 0.25 mg PO BEDTIME PRN 02/03/16 [History] Ketotifen Fumarate [Zaditor] 1 drop EYEBOTH BID PRN 02/03/16 [History] Levothyroxine [Synthroid] 50 mcg PO ACBREAKFAST 02/03/16 [History] Lutein/Zeaxanthin [Lutein-Zeaxanthin 25-5 mg Sfgl] 1 tab PO DAILY 02/03/16 [ History] Multivitamins/Minerals [Vitamins and Minerals] 1 tab PO DAILY 02/03/16 [History] Clobetasol [Clobetasol Propionate 0.05% Cream] 15 gm TOP BID PRN 12/12/18 [ History] Ondansetron [Zofran] 4 mg PO Q6H PRN 12/12/18 [History] traMADol [Ultram] 50 mg PO BID PRN 12/12/18 [History] Cholecalciferol (Vitamin D3) [Vitamin D3] 1,000 unit PO DAILY 04/06/19 [History] Clobetasol [Clobetasol Propionate 0.05% Cream] 1 applic TOP DAILY PRN 04/06/19 [ History] ClonazePAM [KlonoPIN] 0.125 mg PO DAILY PRN 04/06/19 [History] Lisinopril 30 mg PO DAILY 09/07/19 [History] amLODIPine Besylate [Norvasc] 2.5 mg PO DAILY 09/07/19 [History] Past Medical History HEENT History: Reports: Cataract, Impaired Vision Cardiovascular History: Reports: Heart Failure, Hypertension Respiratory History: Reports: None Gastrointestinal History: Reports: Chronic Constipation, GI Bleed, Other (See Below) Genitourinary History: Reports: UTI, Recurrent REMOTE RECRUITER History: Reports: Musculoskeletal History: Reports: Arthritis Neurological History: Reports: None Psychiatric History: Reports: Anxiety Endocrine/Metabolic History: Reports: Hypothyroidism Hematologic History: Reports: B12 Deficiency Immunologic History: Reports: None Oncologic (Cancer) History: Reports: Cervix Dermatologic History: Reports: None - Infectious Disease History Infectious Disease History: Reports: Chicken Pox, Measles, Mumps, Rubella - Past Surgical History Head Surgeries/Procedures: Reports: None HEENT Surgical History: Reports: Cataract Surgery Cardiovascular Surgical History: Reports: None Respiratory Surgical History: Reports: None GI Surgical History: Reports: Appendectomy, Colonoscopy, EGD Female Surgical History: Reports: Breast Biopsy, Hysterectomy, Salpingo- Oophorectomy Endocrine Surgical History: Reports: None Neurological Surgical History: Reports: None Musculoskeletal Surgical History: Reports: None Oncologic Surgical History: Reports: None Dermatological Surgical History: Reports: None Social & Family History - Family History Family Medical History: Noncontributory HEENT: Reports: None Cardiac: Reports: Other (See Below) Respiratory: Reports: None GI: Reports: None : Reports: None OBGYN: Reports: None Musculoskeletal: Reports: None Neurological: Reports: None Psychiatric: Reports: None Endocrine/Metabolic: Reports: None Hematologic: Reports: None Immunologic: Reports: None Dermatologic: Reports: None Oncologic: Reports: Bone, Colon, Esophageal, Lung, Thyroid Other Oncologic Family History: extensive family with cancer, father pancreatic , sister thyroid cancer, brother colon cancer, brother lung cancer, daughter cervical cancer - Caffeine Use Caffeine Use: Reports: Coffee H&P Review of Systems - Review of Systems: Review Of Systems: See Below General: Reports: Fatigue. Denies: Night Sweats, Weight Gain HEENT: Reports: No Symptoms Pulmonary: Reports: No Symptoms Cardiovascular: Reports: Blood Pressure Problem. Denies: Palpitations, Dyspnea on Exertion, Orthopnea, PND, Edema, Lightheadedness Gastrointestinal: Reports: Diarrhea Genitourinary: Denies: Incontinence Musculoskeletal: Reports: Leg Pain, Joint Pain. Denies: Shoulder Pain, Joint Swelling Skin: Reports: No Symptoms Psychiatric: Denies: Confusion Neurological: Denies: Confusion, Headache, Numbness, Seizure Hematologic/Lymphatic: Denies: Easy Bleeding, Easy Bruising Immunologic: Reports: No Symptoms Exam - Exam Exam: See Below - Vital Signs Vital Signs: Last Vital Signs Temp 98.5 F 09/08/19 06:53 Pulse 85 09/08/19 06:53 Resp 20 09/08/19 06:53 BP 177/85 H 09/08/19 06:53 Pulse Ox 97 09/08/19 06:53 Weight: 59 lb 1 oz - Exam General: Alert, Oriented, Cooperative. No: Mild Distress Neck: Supple Lungs: Clear to Auscultation, Normal Respiratory Effort Cardiovascular: Regular Rate, Regular Rhythm GI/Abdominal Exam: Soft, Non-Tender. No: Distended, Rebound, Tender, Abnormal Bowel Sounds (Female) Exam: Deferred Rectal (Female) Exam: Deferred Back Exam: No: CVA Tenderness (L) Extremities: No: Pedal Edema Peripheral Pulses: 2+: Radial (L), Radial (R) Skin: Warm, Dry Neurological: Normal Speech, Sensation Intact Neuro Extensive - Motor, Sensory, Reflexes: CN II-XII Intact Psychiatric: Alert, Normal Affect, Normal Mood. No: Anxious, Depressed - Patient Data Lab Results Last 24 hrs: Laboratory Results - last 24 hr 09/07/19 09/07/19 09/07/19 Range/Units 11:11 11:40 11:40 WBC 5.12 (5.00-10.00) 10^3/uL RBC 4.28 (3.80-5.50) 10^6/uL Hgb 14.6 (12.0-16.0) g/dL Hct 43.4 (37.0-47.0) % MCV 101.4 H (82.0-92.0) fL MCH 34.1 H (27.0-31.0) pg MCHC 33.6 (32.0-36.0) g/dL RDW 13.4 (11.5-14.5) % Plt Count 194 (150-400) 10^3/uL MPV 8.5 (7.4-10.4) fL Immature Gran % (Auto) 0.2 (0.0-5.0) % Neut % (Auto) 78.3 H (50.0-70.0) % Lymph % (Auto) 15.8 L (20.0-40.0) % [place] % (Auto) 4.9 (2.0-8.0) % Eos % (Auto) 0.6 L (1.0-3.0) % Baso % (Auto) 0.2 (0.0-1.0) % Immature Gran # (Auto) 0.01 (0.00-0.50) 10^3/uL Neut # (Auto) 4.01 (2.50-7.00) 10^3/uL Lymph # (Auto) 0.81 L (1.00-4.00) 10^3/uL [place] # (Auto) 0.25 (0.10-0.80) 10^3/uL Eos # (Auto) 0.03 L (0.10-0.30) 10^3/uL Baso # (Auto) 0.01 (0.00-0.10) 10^3/uL Sodium 138 (136-145) mmol/L Potassium 4.6 (3.3-5.3) mmol/L Chloride 105 (98-115) mmol/L Carbon Dioxide 23.3 (21.0-32.0) mmol/L Anion Gap 14.3 (5-15) mmol/L BUN 30 H (6-25) mg/dL Creatinine 0.83 (0.51-1.17) mg/dL Est Cr Clr Drug Dosing 19.74 mL/min Estimated GFR (MDRD) > 60 mL/min Glucose 101 H (75 - 99) mg/dL Calcium 9.5 (8.7-10.3) mg/dL Total Bilirubin 0.4 (0.2-1.0) mg/dL AST 16 (15-37) U/L ALT 22 (12-78) U/L Alkaline Phosphatase 59 (46-116) IU/L Creatine Kinase (26-276) U/L CK-MB (CK-2) (0.00-4.30) ng/mL Troponin I (0.00-0.070) ng/mL Total Protein 6.6 (6.4-8.2) g/dL Albumin 3.77 (3.00-4.80) g/dL Lipase 139 (73-393) U/L Specimen Type Urincc Urine Color Yellow (YELLOW) Urine Appearance Clear (CLEAR) Urine pH 5.5 (5.0-9.0) Ur Specific [place] 1.020 (1.005-1.030) Urine Protein 100 H (NEGATIVE) mg/dL Urine Glucose (UA) Negative (NEGATIVE) mg/dL Urine Ketones Negative (NEGATIVE) mg/dL Urine Occult Blood Negative (NEGATIVE) Urine Nitrite Negative (NEGATIVE) Urine Bilirubin Negative (NEGATIVE) Urine Urobilinogen 0.2 (0.2-1.0) E.U./dL Ur Leukocyte Esterase Negative (NEGATIVE) Urine RBC 0-5 (0-5) /HPF Urine WBC 10-20 H (0-5) /HPF Ur Epithelial Cells Few /LPF Urine Bacteria Rare (NONE TO FEW) /HPF Hyaline Casts Occasional H (NEGATIVE) /LPF Urine Mucus Few H (NEGATIVE) /LPF 09/07/19 09/08/19 09/08/19 Range/Units 11:40 07:20 07:20 WBC 5.39 (5.00-10.00) 10^3/uL RBC 4.28 (3.80-5.50) 10^6/uL Hgb 14.7 (12.0-16.0) g/dL Hct 42.7 (37.0-47.0) % MCV 99.8 H (82.0-92.0) fL MCH 34.3 H (27.0-31.0) pg MCHC 34.4 (32.0-36.0) g/dL RDW 13.1 (11.5-14.5) % Plt Count 183 (150-400) 10^3/uL MPV 8.6 (7.4-10.4) fL Immature Gran % (Auto) 0.2 (0.0-5.0) % Neut % (Auto) 73.4 H (50.0-70.0) % Lymph % (Auto) 20.8 (20.0-40.0) % [place] % (Auto) 5.0 (2.0-8.0) % Eos % (Auto) 0.4 L (1.0-3.0) % Baso % (Auto) 0.2 (0.0-1.0) % Immature Gran # (Auto) 0.01 (0.00-0.50) 10^3/uL Neut # (Auto) 3.96 (2.50-7.00) 10^3/uL Lymph # (Auto) 1.12 (1.00-4.00) 10^3/uL [place] # (Auto) 0.27 (0.10-0.80) 10^3/uL Eos # (Auto) 0.02 L (0.10-0.30) 10^3/uL Baso # (Auto) 0.01 (0.00-0.10) 10^3/uL Sodium 140 (136-145) mmol/L Potassium 4.0 (3.3-5.3) mmol/L Chloride 107 (98-115) mmol/L Carbon Dioxide 18.7 L (21.0-32.0) mmol/L Anion Gap 18.3 H (5-15) mmol/L BUN 23 (6-25) mg/dL Creatinine 0.62 (0.51-1.17) mg/dL Est Cr Clr Drug Dosing 26.02 mL/min Estimated GFR (MDRD) > 60 mL/min Glucose 102 H (75 - 99) mg/dL Calcium 8.8 (8.7-10.3) mg/dL Total Bilirubin (0.2-1.0) mg/dL AST (15-37) U/L ALT (12-78) U/L Alkaline Phosphatase (46-116) IU/L Creatine Kinase 37 (26-276) U/L CK-MB (CK-2) 2.10 (0.00-4.30) ng/mL Troponin I < 0.04 (0.00-0.070) ng/mL Total Protein (6.4-8.2) g/dL Albumin (3.00-4.80) g/dL Lipase (73-393) U/L Specimen Type Urine Color (YELLOW) Urine Appearance (CLEAR) Urine pH (5.0-9.0) Ur Specific [place] (1.005-1.030) Urine Protein (NEGATIVE) mg/dL Urine Glucose (UA) (NEGATIVE) mg/dL Urine Ketones (NEGATIVE) mg/dL Urine Occult Blood (NEGATIVE) Urine Nitrite (NEGATIVE) Urine Bilirubin (NEGATIVE) Urine Urobilinogen (0.2-1.0) E.U./dL Ur Leukocyte Esterase (NEGATIVE) Urine RBC (0-5) /HPF Urine WBC (0-5) /HPF Ur Epithelial Cells /LPF Urine Bacteria (NONE TO FEW) /HPF Hyaline Casts (NEGATIVE) /LPF Urine Mucus (NEGATIVE) /LPF Result Diagrams: 09/08/19 07:20 09/08/19 07:20 Sepsis Event Note - Evaluation Sepsis Screening Result: No Definite Risk - Focused Exam Vital Signs: Vital Signs Temp Pulse Resp BP BP Pulse Ox 09/08/19 06:53 98.5 F 85 20 177/85 H 97 09/08/19 02:52 96.8 F 80 20 171/73 H 95 09/07/19 22:58 97.2 F 83 20 186/97 H 97 Date Exam was Performed: 09/08/19 Time Exam was Performed: 09:36 Problem List Initiated/Reviewed/Updated: Yes Orders Last 24hrs: Active Orders 24 hr Category Date Time Status Patient Status [ADT] Routine ADT 09/07/19 12:43 Active EKG Documentation Completion [RC] ASDIRECTED Care 09/07/19 11:26 Inactive Intake and Output [RC] 1400,2200,0600 Care 09/07/19 15:14 Active Oxygen Therapy [RC] PRN Care 09/07/19 12:43 Active Up With Assistance [RC] ASDIRECTED Care 09/07/19 12:43 Active VTE/DVT Education [RC] PER UNIT ROUTINE Care 09/07/19 12:43 Active Vital Signs [RC] 0300,0700,1100,1500,1900,2300 Care 09/07/19 12:43 Active Regular Diet [DIET] Diet 09/07/19 Lunch Active Acetaminophen/HYDROcodone [[place] 325-5 MG] Med 09/07/19 15:11 Active 1 tab PO BID PRN ClonazePAM [KlonoPIN] Med 09/07/19 15:11 Active 0.125 mg PO DAILY PRN ClonazePAM [KlonoPIN] Med 09/07/19 15:11 Active 0.25 mg PO BEDTIME PRN Ketotifen Fumarate [Zaditor] Med 09/07/19 15:11 Pending 1 drop EYEBOTH BID PRN Levothyroxine [Synthroid] Med 09/08/19 07:30 Active 50 mcg PO ACBREAKFAST Ondansetron [Zofran ODT] Med 09/07/19 16:15 Active 4 mg PO Q6H PRN Ondansetron [Zofran] Med 09/07/19 12:43 Active 4 mg IV Q6H PRN amLODIPine [Norvasc] Med 09/08/19 09:00 Active 2.5 mg PO DAILY lisinopriL [Prinivil] Med 09/08/19 09:00 Active 30 mg PO DAILY traMADol [Ultram] Med 09/07/19 15:11 Active 50 mg PO BID PRN Resuscitation Status Routine Resus Stat 09/07/19 12:43 Ordered Medication Orders Hydrocodone Bitart/Acetaminophen ([place] 325-5 Mg) 1 tab PO BID PRN PRN Reason: moderate pain Last Admin: 09/07/19 15:53 Dose: 1 tab Amlodipine Besylate (Norvasc) 2.5 mg PO DAILY [facility] Clonazepam (Klonopin) 0.125 mg PO DAILY PRN PRN Reason: anxiety` Clonazepam (Klonopin) 0.25 mg PO BEDTIME PRN PRN Reason: Insomnia Last Admin: 09/07/19 23:48 Dose: 0.25 mg Levothyroxine Sodium (Synthroid) 50 mcg PO ACBREAKFAST [facility] Last Admin: 09/08/19 07:45 Dose: 50 mcg Lisinopril (Prinivil) 30 mg PO DAILY [facility] Non-Formulary Medication (Ketotifen Fumarate [Zaditor]) 1 drop EYEBOTH BID PRN PRN Reason: Itching Ondansetron HCl (Zofran) 4 mg IV Q6H PRN PRN Reason: Nausea/Vomiting Last Admin: 09/08/19 08:40 Dose: 4 mg Ondansetron HCl (Zofran Odt) 4 mg PO Q6H PRN PRN Reason: Nausea Tramadol HCl (Ultram) 50 mg PO BID PRN PRN Reason: Pain Last Admin: 09/07/19 19:49 Dose: 50 mg Assessment/Plan Comment:: Please use this H&P as a combined discharge summary patient seen same day History of present illness Very frail thin 89-year-old female who lives by herself was admitted into observation when she came into the ED via EMS for complaint of "just did not feel right in my head" along with with weakness high blood pressure and nausea. Does have labile blood pressures that has been stabilized only with adjustments which include 30 mg lisinopril along with 2.5 mg Norvasc daily. Low patient had no chest pain shortness of breath or vomiting on admission she was quite early nauseated soon after admission. Daughter "Char" noted some slight confusion over the past few months however the patient denies this. Patient currently lives/resides in her own home with daughter very close by and active in her care in [place]. ED work-up BP 129/88 BUN 30, creatinine 0.8 Hospital course Overnight concerns, early on admission KUB was taken moderate stool burden, [place], 200 cc magnesium citrate, multiple bowel movements. BP elevated however patient feels much better this morning although tired. Primary hospital problems --Constipation, opioid-induced, improved --Dehydration, resolved --Hypertension, not optimal --Weight loss, nutritional consult placed Disposition/overall plan --Likely discharge this p.m. after improved blood pressure --Improved home bowel regimen --Nutrional consultation --increase Lisinopril to 40 mg daily - Mortality Measure Prognosis:: Good
[2019-09-08] MEDS: Acetaminophen/HYDROcodone 325-5 MG Tab PO PRN (14:46)
[2019-09-08 15:25] VITALS: BP 124/74; PULSE 89
== END 2019-09-08 16:18 | disposition home or self-care (01) ==
LOC: KA.ED 10:49 → KA.MS 12:42
PROVIDERS: ADMIT Physician Assistant Medical; ATTEND Nurse Practitioner Family
DX: E86.0 Dehydration (principal); I11.0 Hypertensive heart disease with heart failure; I50.9 Heart failure, unspecified; K59.00 Constipation, unspecified; T40.2X5A Adverse effect of other opioids, initial encounter; R63.4 Abnormal weight loss; F41.9 Anxiety disorder, unspecified; E03.9 Hypothyroidism, unspecified; M19.90 Unspecified osteoarthritis, unspecified site; Z79.82 Long term (current) use of aspirin; Z79.899 Other long term (current) drug therapy; Z91.048 Other nonmedicinal substance allergy status; Z88.0 Allergy status to penicillin; Z88.2 Allergy status to sulfonamides; Z88.1 Allergy status to other antibiotic agents
CPT/HCPCS: 36415; 74018; 80048; 80053; 81001; 82550; 82553; 83690; 84484; 85025; 93005; A9270-GY; J2405; J7030

== ENCOUNTER 2020-03-27 10:00 | Inpatient (IN) | payer MEDICARE, OTHER ==
[2020-03-27] MEDS ORDERED: Sodium Chloride 0.9% 1,000 ML IV ONE (10:43)
[2020-03-27] MEDS ORDERED: Sodium Chloride 0.9% 1,000 ML ONE (10:45)
[2020-03-27] MEDS ORDERED: Aspirin 81 MG Tab.Chew ONE (10:45)
[2020-03-27] MEDS ORDERED: Aspirin 81 MG Tab.Chew PO ONE (10:51)
--- NOTE | 2020-03-27 10:51 | EDM.PDOC ---
ED HPI GENERAL MEDICAL PROBLEM - General Chief Complaint: General Time Seen by Provider: 03/27/20 10:21 Source of Information: Reports: Patient, Family (daughter) History Limitations: Reports: No Limitations - History of Present Illness INITIAL COMMENTS - FREE TEXT/NARRATIVE: Patient presents via EMS with nausea, abdominal pain, anorexia. She vomited a little and had diarrhea last night. Took some Imodium. She says this started Wednesday so this is now the day. She hasn't really eaten anything since Wednesday. She is in A Fib now but she and her daughter aren't aware of history of A Fib and not on blood thinners except an occasional aspirin. She has had epigastric pain for at least several weeks she says. She denies pain in chest, neck, arms, shoulders. She lives alone with a daughter nearby who sees her often. The daughter was with her until midnight last night and again at 0800 today. The daughter tells me patient was quite lethargic this morning when she arrived but perked up when she told her the ambulance was coming. Treatments CHIEF CLERK: Reports: See EMS Report - Related Data Allergies Allergy/AdvReac Type Severity Reaction Status Date / Time adhesive tape Allergy Itching Verified 03/27/20 10:12 Penicillins Allergy Cannot Verified 03/27/20 10:12 Remember sulfamethoxazole Allergy Cannot Verified 03/27/20 10:12 [From Bactrim] Remember trimethoprim [From Bactrim] Allergy Cannot Verified 03/27/20 10:12 Remember Home Meds: Home Meds Acetaminophen/HYDROcodone [Alva 325-5 MG] 1.5 tab PO BID PRN 02/03/16 [History] Aspirin 81 mg PO BEDTIME 02/03/16 [History] ClonazePAM [KlonoPIN] 0.25 mg PO BEDTIME PRN 02/03/16 [History] Ketotifen Fumarate [Zaditor] 1 drop EYEBOTH BID PRN 02/03/16 [History] Levothyroxine [Synthroid] 50 mcg PO ACBREAKFAST 02/03/16 [History] Lutein/Zeaxanthin [Lutein-Zeaxanthin 25-5 mg Sfgl] 1 tab PO DAILY 02/03/16 [History] Multivitamins/Minerals [Vitamins and Minerals] 1 tab PO DAILY 02/03/16 [History] Ondansetron [Zofran] 4 mg PO Q6H PRN 12/12/18 [History] traMADol [Ultram] 50 mg PO BID PRN 12/12/18 [History] Cholecalciferol (Vitamin D3) [Vitamin D3] 2,000 unit PO DAILY 04/06/19 [History] Clobetasol [Clobetasol Propionate 0.05% Cream] 1 applic TOP DAILY PRN 04/06/19 [History] ClonazePAM [KlonoPIN] 0.125 mg PO DAILY PRN 04/06/19 [History] Lisinopril 40 mg PO DAILY 09/07/19 [History] Calcium Carbonate [Calcium] 600 mg PO BID 03/27/20 [History] Cyanocobalamin (Vitamin B-12) [Vitamin B-12] 100 mcg PO DAILY 03/27/20 [History] Past Medical History HEENT History: Reports: Cataract, Impaired Vision Cardiovascular History: Reports: Heart Failure, Hypertension Respiratory History: Reports: None Gastrointestinal History: Reports: Chronic Constipation, GI Bleed, Other (See Below) Genitourinary History: Reports: UTI, Recurrent [employer] ASSISTANT History: Reports: Musculoskeletal History: Reports: Arthritis Neurological History: Reports: None Psychiatric History: Reports: Anxiety Endocrine/Metabolic History: Reports: Hypothyroidism Hematologic History: Reports: B12 Deficiency Immunologic History: Reports: None Oncologic (Cancer) History: Reports: Cervix Dermatologic History: Reports: None - Infectious Disease History Infectious Disease History: Reports: Chicken Pox, Measles, Mumps, Rubella - Past Surgical History Head Surgeries/Procedures: Reports: None HEENT Surgical History: Reports: Cataract Surgery Cardiovascular Surgical History: Reports: None Respiratory Surgical History: Reports: None GI Surgical History: Reports: Appendectomy, Colonoscopy, EGD Female Surgical History: Reports: Breast Biopsy, Hysterectomy, Salpingo- Oophorectomy Endocrine Surgical History: Reports: None Neurological Surgical History: Reports: None Musculoskeletal Surgical History: Reports: None Oncologic Surgical History: Reports: None Dermatological Surgical History: Reports: None Social & Family History - Family History Family Medical History: Noncontributory HEENT: Reports: None Cardiac: Reports: Other (See Below) Respiratory: Reports: None GI: Reports: None : Reports: None OBGYN: Reports: None Musculoskeletal: Reports: None Neurological: Reports: None Psychiatric: Reports: None Endocrine/Metabolic: Reports: None Hematologic: Reports: None Immunologic: Reports: None Dermatologic: Reports: None Oncologic: Reports: Bone, Colon, Esophageal, Lung, Thyroid Other Oncologic Family History: extensive family with cancer, father pancreatic, sister thyroid cancer, brother colon cancer, brother lung cancer, daughter cervical cancer - Caffeine Use Caffeine Use: Reports: Coffee ED ROS GENERAL - Review of Systems Review Of Systems: See Below Constitutional: Reports: Weakness, Fatigue. Denies: Fever HEENT: Reports: No Symptoms Respiratory: Reports: Other (had shallow breathing this morning per daughter, but now gone). Denies: Shortness of Breath, Cough Cardiovascular: Reports: Blood Pressure Problem. Denies: Chest Pain GI/Abdominal: Reports: Abdominal Pain, Diarrhea, Decreased Appetite, Nausea, Vomiting : Denies: Dysuria, Flank Pain Musculoskeletal: Reports: Leg Pain (chronic bilat thigh). Denies: Neck Pain, Shoulder Pain, Arm Pain, Back Pain, Hand Pain Skin: Denies: Cyanosis, Jaundice, Mottled, Pallor, Diaphoresis Neurological: Denies: Confusion, Dizziness, Headache, Seizure, Trouble Speaking Psychiatric: Denies: Agitation, Anxiety, Confusion ED EXAM, GENERAL - Physical Exam Exam: See Below Exam Limited By: No Limitations General Appearance: Alert (alert but weak and sleepy), No Apparent Distress, Cachetic (very thin and seems to be thinner than last time per nurse) Eye Exam: Bilateral Eye: EOMI, Normal Inspection, PERRL Ears: Normal External Exam, Hearing Grossly Normal Nose: Normal Inspection, No Blood Throat/Mouth: Normal Inspection, Normal Lips, Normal Voice, No Airway Compromise Head: Atraumatic, Normocephalic Neck: Normal Inspection, Supple, Non-Tender, Full Range of Motion Respiratory/Chest: No Respiratory Distress, Lungs Clear, Normal Breath Sounds, No Accessory Muscle Use Cardiovascular: Normal Peripheral Pulses, No Edema, No Gallop, No JVD, No Murmur, No Rub, Tachycardia, Irregularly Irregular Peripheral Pulses: 2+: Carotid (L), Carotid (R), Radial (L), Radial (R), Posterior Tibial (L), Posterior Tibial (R) GI/Abdominal: Normal Bowel Sounds, Soft, No Distention, Mass (5 x 8 cm palpable, tender mass in epigastrium extending from left medial anterior inferior ribs to umbilicus) Back Exam: Normal Inspection, Full Range of Motion. No: CVA Tenderness (L), CVA Tenderness (R) Extremities: Non-Tender, No Pedal Edema, Other (very thin) Neurological: Alert, Oriented, Normal Cognition, No Motor/Sensory Deficits Psychiatric: Normal Affect, Normal Mood Skin Exam: Warm, Dry, Intact, Normal Color, No Rash Course - Vital Signs Last Recorded V/S: Last Vital Signs Temp 97.8 F 03/27/20 13:10 Pulse 107 H 03/27/20 13:10 Resp 24 H 03/27/20 13:10 BP 177/64 H 03/27/20 13:10 Pulse Ox 100 03/27/20 13:10 - Orders/Labs/Meds Orders: Active Orders 24 hr Category Date Time Status EKG Documentation Completion [RC] ASDIRECTED Care 03/27/20 10:52 Active URINALYSIS W/MICROSCOPIC [UA W/MICROSCOPIC] [URIN] Stat Lab 03/27/20 10:13 Ordered Sodium Chloride 0.9% [Normal Saline] 50 ml Med 03/27/20 11:30 Active IV ASDIRECTED EKG 12 Lead [EK] Stat Ther 03/27/20 10:51 Ordered Medication Orders Acetaminophen (Tylenol) 650 mg PO Q4H PRN PRN Reason: Pain Sodium Chloride (Normal Saline) 50 mls @ 200 mls/min IV ASDIRECTED [facility] Labs: Laboratory Tests 03/27/20 03/27/20 03/27/20 Range/Units 10:20 10:30 10:30 WBC 9.90 (5.00-10.00) 10^3/uL RBC 4.83 (3.80-5.50) 10^6/uL Hgb 16.3 H D (12.0-16.0) g/dL Hct 46.9 (37.0-47.0) % MCV 97.1 H (82.0-92.0) fL MCH 33.7 H (27.0-31.0) pg MCHC 34.8 (32.0-36.0) g/dL RDW 12.1 (11.5-14.5) % Plt Count 286 D (150-400) 10^3/uL MPV 8.4 (7.4-10.4) fL Immature Gran % (Auto) 0.1 (0.0-5.0) % Neut % (Auto) 88.4 H (50.0-70.0) % Lymph % (Auto) 8.3 L (20.0-40.0) % Boyd % (Auto) 3.1 (2.0-8.0) % Eos % (Auto) 0.0 L (1.0-3.0) % Baso % (Auto) 0.1 (0.0-1.0) % Neut # (Auto) 8.75 H (2.50-7.00) 10^3/uL Lymph # (Auto) 0.82 L (1.00-4.00) 10^3/uL Boyd # (Auto) 0.31 (0.10-0.80) 10^3/uL Eos # (Auto) 0.00 L (0.10-0.30) 10^3/uL Baso # (Auto) 0.01 (0.00-0.10) 10^3/uL Immature Gran # (Auto) 0.01 (0.00-0.50) 10^3/uL Sodium 125 L D (136-145) mmol/L Potassium 4.6 (3.3-5.3) mmol/L Chloride 99 (98-115) mmol/L Carbon Dioxide 18.7 L (21.0-32.0) mmol/L Anion Gap 11.9 (5-15) mmol/L BUN 34 H (6-25) mg/dL Creatinine 0.99 (0.51-1.17) mg/dL Est Cr Clr Drug Dosing 16.55 mL/min Estimated GFR (MDRD) 53 mL/min Glucose 114 H (75 - 99) mg/dL Calcium 9.4 (8.7-10.3) mg/dL Total Bilirubin 0.5 (0.2-1.0) mg/dL AST 23 (15-37) U/L ALT 26 (12-78) U/L Alkaline Phosphatase 59 (46-116) IU/L Troponin I 2.54 H* (0.00-0.070) ng/mL Total Protein 6.9 (6.4-8.2) g/dL Albumin 4.03 (3.00-4.80) g/dL Meds: Medications Generic Name Dose Route Start Last Admin Trade Name Freq PRN Reason Stop Dose Admin Acetaminophen 650 mg 03/27/20 13:13 Tylenol PO Q4H PRN Pain Sodium Chloride 50 mls @ 200 mls/min 03/27/20 11:30 Normal Saline IV ASDIRECTED [facility]STA Discontinued Medications Generic Name Dose Route Start Last Admin Trade Name Dede PRN Reason Stop Dose Admin Aspirin Confirm 03/27/20 10:45 03/27/20 10:52 Aspirin Administered 03/27/20 10:46 Not Given Dose 324 mg .ROUTE .STK-MED ONE Aspirin 324 mg 03/27/20 10:51 03/27/20 10:47 Aspirin PO 03/27/20 10:52 324 mg ONETIME ONE Administration Sodium Chloride 1,000 mls @ 999 mls/hr 03/27/20 10:43 03/27/20 10:50 Normal Saline IV 03/27/20 11:43 999 mls/hr .BOLUS ONE Administration Sodium Chloride Confirm 03/27/20 10:45 03/27/20 10:52 Normal Saline Administered 03/27/20 10:46 Not Given Dose 1,000 mls @ as directed .ROUTE .STK-MED ONE Iopamidol 100 ml 03/27/20 11:19 Isovue-370 (76%) IV 03/27/20 11:20 ONETIME ONE - Re-Assessments/Exams Free Text/Narrative Re-Assessment/Exam: 03/27/20 10:58 Patient and daughter tell me that she has not had any imaging of abdomen in quite awhile. Had an xray of abdomen over a year ago. EKG shows sinus tach with PACs. ST elevation with inverted T-waves in V3 and V4. Since this started 4 days ago and she has no cardiac symptoms will get troponin now to confirm diagnosis. ASA 324 given. 03/27/20 11:24 Troponin is 2.54. I discussed with patient and daughter and they are discussing their wishes. She says this started even longer than 4 days ago but is worse the last 4 days. Precise onset of [place] is unclear. Patient tells me she had an angiogram (no stents) several years ago. I informed patient that at this point we don't know if the worst of the [place] is past or if it is still coming. She definitely could from this over the next few hours or days. I had discussed also with Marquez Robbins, her PCP, who thinks it would be best for her to go to [place] for angiogram/stents; I communicated this with her. I also discussed with her that it could just make her CHF worse. 03/27/20 12:32 Patient visited at length with her daughter here and on the phone with daughter in [place]. She wishes to stay here and not go to [place] for angiogram. She is ready to if that is what happens now. She still would like the CT to determine what the tender mass in abdomen is. Mara called radiologist to see if with the current [place] there is any concern about dye and was informed it is okay. 03/27/20 12:44 Discussed case further with Marquez Robbins NP and he accepts for admission. Abdominal CT is pending. 03/27/20 13:29 CT shows no mass, adenopathy or aneurysm. Moderate small bowel distention and likely intestinal angina. Discussed this with patient. She is admitted to IP with Marquez Robbins. Departure - Departure Time of Disposition: 13:35 Disposition: Admitted As Inpatient 66 Condition: Serious Clinical Impression: Elevated troponin, Cachexia STEMI (ST elevation myocardial infarction) Qualifiers: Involved coronary artery: unspecified coronary artery Qualified Code(s): I21.3 - ST elevation (STEMI) myocardial infarction of unspecified site Abdominal pain Qualifiers: Abdominal location: generalized Qualified Code(s): R10.84 - Generalized abdominal pain - Discharge Information Sepsis Event Note (ED) - Evaluation Sepsis Screening Result: No Definite Risk - Focused Exam Vital Signs: Vital Signs Temp Pulse Resp BP Pulse Ox 03/27/20 10:06 99 F 115 H 30 H 168/113 H 97 - My Orders Last 24 Hours: My Active Orders 03/27/20 10:13 URINALYSIS W/MICROSCOPIC [UA W/MICROSCOPIC] [URIN] Stat 03/27/20 10:51 EKG 12 Lead [EK] Stat 03/27/20 10:52 EKG Documentation Completion [RC] ASDIRECTED 03/27/20 11:30 Sodium Chloride 0.9% [Normal Saline] 50 ml IV ASDIRECTED - Assessment/Plan Last 24 Hours: My Active Orders 03/27/20 10:13 URINALYSIS W/MICROSCOPIC [UA W/MICROSCOPIC] [URIN] Stat 03/27/20 10:51 EKG 12 Lead [EK] Stat 03/27/20 10:52 EKG Documentation Completion [RC] ASDIRECTED 03/27/20 11:30 Sodium Chloride 0.9% [Normal Saline] 50 ml IV ASDIRECTED
[2020-03-27 10:58] LABS: ANION GAP 11.9 mmol/L (5-15)
[2020-03-27] MEDS ORDERED: Iopamidol 755 Mg/ML 100 ML Bottle IV ONE (11:19)
[2020-03-27] MEDS ORDERED: Sodium Chloride 0.9% 50 ML IV SCH (11:30)
--- NOTE | 2020-03-27 13:19 | CT ---
[id number] CT/CT Abdomen Pelvis W IV EXAM: CT Abdomen Pelvis W IV CLINICAL DATA: ABDOMINAL PAIN. PALPABLE ABDOMINAL MASS COMPARISON: CORRELATION IS MADE WITH NOVEMBER 14, 2016 FINDINGS: There is abnormal small bowel distention. There is a significant decrease in soft tissue mass. The liver and spleen show no focal abnormalities. There is no aneurysm There are heavy atheromatous calcifications The adrenals, pancreas, and kidneys are unremarkable. The pelvis shows no mass or adenopathy IMPRESSION: MODERATE SMALL BOWEL DISTENTION CACHECTIC APPEARANCE OF PATIENT THE PATIENT LIKELY SUFFERS FROM INTESTINAL ANGINA Randolph Chavez MD 03/27/20 1827 Thank you for allowing us to participate in the care of your patient.
[2020-03-27] MEDS: Acetaminophen 325 MG Tab PO PRN (13:40)
[2020-03-27] MEDS ORDERED: Heparin Sodium 5,000 Units/ML Vial IVPUSH ONE ×2 (14:44→22:24)
[2020-03-27] MEDS ORDERED: Clopidogrel 75 MG Tab PO ONE (14:54)
[2020-03-27] MEDS ORDERED: Heparin Sodium/D5W 250 ML IV SCH (15:00)
[2020-03-27] MEDS: Atenolol 25 MG Tab PO SCH (15:40)
[2020-03-27] MEDS ORDERED: Ondansetron 4 MG Tab.DIS PO PRN (16:40)
[2020-03-27] MEDS ORDERED: Acetaminophen/HYDROcodone 325-5 MG Tab PO PRN (16:41)
[2020-03-27] MEDS ORDERED: KETOTIFEN FUMARATE EYEBOTH PRN (16:53)
[2020-03-27] MEDS ORDERED: PAIN RELIEF TOP PRN (16:53)
[2020-03-27] MEDS ORDERED: CLOBETASOL TOP PRN (16:53)
[2020-03-27] MEDS ORDERED: ClonazePAM 0.5 MG Tab PO PRN ×2 (16:53)
[2020-03-27] MEDS: Calcium Carbonate 600 MG Tab PO SCH (20:45)
[2020-03-27] MEDS: traMADol 50 MG Tab PO PRN (22:47)
[2020-03-27] MEDS ORDERED: LORazepam 0.5 MG Tab PO PRN (23:34)
[2020-03-27] MEDS ORDERED: Loperamide 2 MG Cap PO ONE (23:35)
[2020-03-27] MEDS: Ondansetron 4 MG Tab.DIS PO PRN (23:36)
[2020-03-27] MEDS ORDERED: Omeprazole 20 MG Cap.CR PO STA (23:54)
[2020-03-28] MEDS: Acetaminophen/HYDROcodone 325-5 MG Tab PO PRN ×2 (05:09→21:46)
[2020-03-28] MEDS: Ondansetron 4 MG Tab.DIS PO PRN ×2 (06:02→10:14)
[2020-03-28] MEDS: Levothyroxine 50 MCG Tab PO SCH (07:46)
[2020-03-28] MEDS: Clopidogrel 75 MG Tab PO SCH (08:22)
[2020-03-28] MEDS: Atenolol 25 MG Tab PO SCH (08:23)
[2020-03-28] MEDS: Lisinopril 10 MG Tab PO SCH (08:24)
[2020-03-28 08:46] LABS: ANION GAP 19.7 mmol/L (5-15)
[2020-03-28] MEDS ORDERED: Loperamide 2 MG Cap PO SCH (09:00)
[2020-03-28] MEDS ORDERED: ZEAXANTHIN PO SCH (09:00)
[2020-03-28] MEDS ORDERED: Non-Formulary Medication 1 Each (Cyanocobalamin (Vitamin B-12) [Vitamin B-12] 100 MCG) PO SCH (09:00)
[2020-03-28] MEDS ORDERED: [UNRECOGNIZED DRUG - OTHER] PO SCH (09:00)
[2020-03-28] MEDS ORDERED: LUTEIN PO SCH (09:00)
[2020-03-28] MEDS: Calcium Carbonate 600 MG Tab PO SCH ×2 (10:45→20:41)
[2020-03-28] MEDS: Cholecalciferol (Vitamin D3) 25 MCG Tab PO SCH (10:46)
[2020-03-28] MEDS: Multivitamins with Minerals/Iron/Folic Acid/Lycopene Tab PO SCH (10:46)
[2020-03-28] MEDS ORDERED: Sodium Chloride 0.9% 300 ML IV ONE (11:12)
--- NOTE | 2020-03-28 11:14 | PCM.HP.2 ---
H&P History of Present Illness - General Date of Service: 03/28/20 Admit Problem/Dx: Admission Diagnosis/Problem Admission Diagnosis/Problem Myocardial infarction of indeterminate age Source of Information: Patient, Family, Old Records, Provider, RN History Limitations: Reports: No Limitations Right Upper Knee Pain Score (Numeric/FACES): 9 - Related Data Allergies/Adverse Reactions: Allergies Allergy/AdvReac Type Severity Reaction Status Date / Time adhesive tape Allergy Itching Verified 03/27/20 10:12 Penicillins Allergy Cannot Verified 03/27/20 10:12 Remember sulfamethoxazole Allergy Cannot Verified 03/27/20 10:12 [From Bactrim] Remember trimethoprim [From Bactrim] Allergy Cannot Verified 03/27/20 10:12 Remember Home Medications: Home Meds Acetaminophen/HYDROcodone [[place] 325-5 MG] 1.5 tab PO BID PRN 02/03/16 [History] Aspirin 81 mg PO BEDTIME 02/03/16 [History] ClonazePAM [KlonoPIN] 0.25 mg PO BEDTIME PRN 02/03/16 [History] Ketotifen Fumarate [Zaditor] 1 drop EYEBOTH BID PRN 02/03/16 [History] Levothyroxine [Synthroid] 50 mcg PO ACBREAKFAST 02/03/16 [History] Lutein/Zeaxanthin [Lutein-Zeaxanthin 25-5 mg Sfgl] 1 tab PO DAILY 02/03/16 [History] Multivitamins/Minerals [Vitamins and Minerals] 1 tab PO DAILY 02/03/16 [History] Ondansetron [Zofran] 4 mg PO Q6H PRN 12/12/18 [History] traMADol [Ultram] 50 mg PO BID PRN 12/12/18 [History] Cholecalciferol (Vitamin D3) [Vitamin D3] 2,000 unit PO DAILY 04/06/19 [History] Clobetasol [Clobetasol Propionate 0.05% Cream] 1 applic TOP DAILY PRN 04/06/19 [History] ClonazePAM [KlonoPIN] 0.125 mg PO DAILY PRN 04/06/19 [History] Lisinopril 40 mg PO DAILY 09/07/19 [History] Calcium Carbonate [Calcium] 600 mg PO BID 03/27/20 [History] Cyanocobalamin (Vitamin B-12) [Vitamin B-12] 100 mcg PO DAILY 03/27/20 [History] Non-Formulary Medication [NF Drug] 1 applic TOP Q4HR PRN 03/27/20 [History] Past Medical History HEENT History: Reports: Cataract, Impaired Vision Cardiovascular History: Reports: Heart Failure, Hypertension Respiratory History: Reports: None Gastrointestinal History: Reports: Chronic Constipation, GI Bleed, Other (See Below) Genitourinary History: Reports: UTI, Recurrent [employer] History: Reports: Musculoskeletal History: Reports: Arthritis Neurological History: Reports: None Psychiatric History: Reports: Anxiety Endocrine/Metabolic History: Reports: Hypothyroidism Hematologic History: Reports: B12 Deficiency Immunologic History: Reports: None Oncologic (Cancer) History: Reports: Cervix Dermatologic History: Reports: None - Infectious Disease History Infectious Disease History: Reports: Chicken Pox, Measles, Mumps, Rubella - Past Surgical History Head Surgeries/Procedures: Reports: None HEENT Surgical History: Reports: Cataract Surgery Cardiovascular Surgical History: Reports: None Respiratory Surgical History: Reports: None GI Surgical History: Reports: Appendectomy, Colonoscopy, EGD Female Surgical History: Reports: Breast Biopsy, Hysterectomy, Salpingo- Oophorectomy Endocrine Surgical History: Reports: None Neurological Surgical History: Reports: None Musculoskeletal Surgical History: Reports: None Oncologic Surgical History: Reports: None Dermatological Surgical History: Reports: None Social & Family History - Family History Family Medical History: Noncontributory HEENT: Reports: None Cardiac: Reports: Other (See Below) Respiratory: Reports: None GI: Reports: None : Reports: None OBGYN: Reports: None Musculoskeletal: Reports: None Neurological: Reports: None Psychiatric: Reports: None Endocrine/Metabolic: Reports: None Hematologic: Reports: None Immunologic: Reports: None Dermatologic: Reports: None Oncologic: Reports: Bone, Colon, Esophageal, Lung, Thyroid Other Oncologic Family History: extensive family with cancer, father pancreatic, sister thyroid cancer, brother colon cancer, brother lung cancer, daughter cervical cancer - Tobacco Use Smoking Status *Q: Current Every Day Smoker Years of Tobacco use: 73 Packs/Tins Daily: 1 Used Tobacco, but Quit: No Second Hand Smoke Exposure: No - Caffeine Use Caffeine Use: Reports: Coffee - Recreational Drug Use Recreational Drug Use: No H&P Review of Systems - Review of Systems: Review Of Systems: See Below General: Reports: Weakness, Fatigue, Decreased Appetite, Weight Loss. Denies: Weight Gain HEENT: Reports: No Symptoms Pulmonary: Denies: Shortness of Breath, Wheezing, Cough Cardiovascular: Reports: Lightheadedness. Denies: Chest Pain Gastrointestinal: Reports: Anorexia, Decreased Appetite, Nausea. Denies: Black Stool, Constipation, Difficulty Swallowing, Distension, Vomiting Genitourinary: Reports: Incontinence Musculoskeletal: Reports: Muscle Pain, Muscle Stiffness, Other (Chronic leg pain) Skin: Reports: Pallor. Denies: Rash Psychiatric: Reports: Mood Lability. Denies: Confusion Neurological: Reports: Pre-Existing Deficit, Difficulty Walking, Weakness. Denies: Confusion, Numbness, Paresthesia, Change in Speech Hematologic/Lymphatic: Denies: Anemia Immunologic: Reports: No Symptoms Exam - Exam Exam: See Below - Vital Signs Vital Signs: Last Vital Signs Temp 97.7 F 03/28/20 06:34 Pulse 67 03/28/20 08:23 Resp 18 03/28/20 06:34 BP 94/58 L 03/28/20 08:24 Pulse Ox 97 03/28/20 08:00 Weight: 56 lb 6.4 oz - Exam Quality Assessment: DVT Prophylaxis. No: Supplemental Oxygen General: Alert, Oriented. No: Mild Distress HEENT: Hearing Intact, Mucosa Moist & [place]: Supple Lungs: Clear to Auscultation, Normal Respiratory Effort Cardiovascular: Regular Rate, Normal S1, Normal S2 GI/Abdominal Exam: Soft, No Distention. No: Guarding, Rigid, Tender, Mass (Female) Exam: Deferred Rectal (Female) Exam: Deferred Back Exam: No: CVA Tenderness (R) Extremities: No: Pedal Edema Peripheral Pulses: 2+: Radial (R), 3+: Radial (L) Skin: Dry Neurological: Normal Speech, Normal Tone Neuro Extensive - Motor, Sensory, Reflexes: No: Motor/Sensory Deficits Psychiatric: Alert, Labile Mood - Patient Data Lab Results Last 24 hrs: Laboratory Results - last 24 hr 03/27/20 03/27/20 03/27/20 Range/Units 10:20 10:30 10:30 WBC 9.90 (5.00-10.00) 10^3/uL RBC 4.83 (3.80-5.50) 10^6/uL Hgb 16.3 H D (12.0-16.0) g/dL Hct 46.9 (37.0-47.0) % MCV 97.1 H (82.0-92.0) fL MCH 33.7 H (27.0-31.0) pg MCHC 34.8 (32.0-36.0) g/dL RDW 12.1 (11.5-14.5) % Plt Count 286 D (150-400) 10^3/uL MPV 8.4 (7.4-10.4) fL Immature Gran % (Auto) 0.1 (0.0-5.0) % Neut % (Auto) 88.4 H (50.0-70.0) % Lymph % (Auto) 8.3 L (20.0-40.0) % [place] % (Auto) 3.1 (2.0-8.0) % Eos % (Auto) 0.0 L (1.0-3.0) % Baso % (Auto) 0.1 (0.0-1.0) % Neut # (Auto) 8.75 H (2.50-7.00) 10^3/uL Lymph # (Auto) 0.82 L (1.00-4.00) 10^3/uL [place] # (Auto) 0.31 (0.10-0.80) 10^3/uL Eos # (Auto) 0.00 L (0.10-0.30) 10^3/uL Baso # (Auto) 0.01 (0.00-0.10) 10^3/uL Immature Gran # (Auto) 0.01 (0.00-0.50) 10^3/uL APTT (22.8-31.4) SEC Sodium 125 L D (136-145) mmol/L Potassium 4.6 (3.3-5.3) mmol/L Chloride 99 (98-115) mmol/L Carbon Dioxide 18.7 L (21.0-32.0) mmol/L Anion Gap 11.9 (5-15) mmol/L BUN 34 H (6-25) mg/dL Creatinine 0.99 (0.51-1.17) mg/dL Est Cr Clr Drug Dosing 16.55 mL/min Estimated GFR (MDRD) 53 mL/min Glucose 114 H (75 - 99) mg/dL Calcium 9.4 (8.7-10.3) mg/dL Total Bilirubin 0.5 (0.2-1.0) mg/dL AST 23 (15-37) U/L ALT 26 (12-78) U/L Alkaline Phosphatase 59 (46-116) IU/L Troponin I 2.54 H* (0.00-0.070) ng/mL B-Natriuretic Peptide (0-100) pg/mL Total Protein 6.9 (6.4-8.2) g/dL Albumin 4.03 (3.00-4.80) g/dL Specimen Type Urine Color (YELLOW) Urine Appearance (CLEAR) Urine pH (5.0-9.0) Ur Specific [place] (1.005-1.030) Urine Protein (NEGATIVE) mg/dL Urine Glucose (UA) (NEGATIVE) mg/dL Urine Ketones (NEGATIVE) mg/dL Urine Occult Blood (NEGATIVE) Urine Nitrite (NEGATIVE) Urine Bilirubin (NEGATIVE) Urine Urobilinogen (0.2-1.0) E.U./dL Ur Leukocyte Esterase (NEGATIVE) Urine RBC (0-5) /HPF Urine WBC (0-5) /HPF Ur Epithelial Cells /LPF Urine Bacteria (NONE TO FEW) /HPF 03/27/20 03/27/20 03/27/20 Range/Units 11:20 16:33 21:37 WBC (5.00-10.00) 10^3/uL RBC (3.80-5.50) 10^6/uL Hgb (12.0-16.0) g/dL Hct (37.0-47.0) % MCV (82.0-92.0) fL MCH (27.0-31.0) pg MCHC (32.0-36.0) g/dL RDW (11.5-14.5) % Plt Count (150-400) 10^3/uL MPV (7.4-10.4) fL Immature Gran % (Auto) (0.0-5.0) % Neut % (Auto) (50.0-70.0) % Lymph % (Auto) (20.0-40.0) % [place] % (Auto) (2.0-8.0) % Eos % (Auto) (1.0-3.0) % Baso % (Auto) (0.0-1.0) % Neut # (Auto) (2.50-7.00) 10^3/uL Lymph # (Auto) (1.00-4.00) 10^3/uL [place] # (Auto) (0.10-0.80) 10^3/uL Eos # (Auto) (0.10-0.30) 10^3/uL Baso # (Auto) (0.00-0.10) 10^3/uL Immature Gran # (Auto) (0.00-0.50) 10^3/uL APTT 26.5 35.3 H (22.8-31.4) SEC Sodium (136-145) mmol/L Potassium (3.3-5.3) mmol/L Chloride (98-115) mmol/L Carbon Dioxide (21.0-32.0) mmol/L Anion Gap (5-15) mmol/L BUN (6-25) mg/dL Creatinine (0.51-1.17) mg/dL Est Cr Clr Drug Dosing mL/min Estimated GFR (MDRD) mL/min Glucose (75 - 99) mg/dL Calcium (8.7-10.3) mg/dL Total Bilirubin (0.2-1.0) mg/dL AST (15-37) U/L ALT (12-78) U/L Alkaline Phosphatase (46-116) IU/L Troponin I 2.21 H* (0.00-0.070) ng/mL B-Natriuretic Peptide (0-100) pg/mL Total Protein (6.4-8.2) g/dL Albumin (3.00-4.80) g/dL Specimen Type Urine Color (YELLOW) Urine Appearance (CLEAR) Urine pH (5.0-9.0) Ur Specific [place] (1.005-1.030) Urine Protein (NEGATIVE) mg/dL Urine Glucose (UA) (NEGATIVE) mg/dL Urine Ketones (NEGATIVE) mg/dL Urine Occult Blood (NEGATIVE) Urine Nitrite (NEGATIVE) Urine Bilirubin (NEGATIVE) Urine Urobilinogen (0.2-1.0) E.U./dL Ur Leukocyte Esterase (NEGATIVE) Urine RBC (0-5) /HPF Urine WBC (0-5) /HPF Ur Epithelial Cells /LPF Urine Bacteria (NONE TO FEW) /HPF 03/27/20 03/28/20 Range/Units 23:45 07:17 WBC (5.00-10.00) 10^3/uL RBC (3.80-5.50) 10^6/uL Hgb (12.0-16.0) g/dL Hct (37.0-47.0) % MCV (82.0-92.0) fL MCH (27.0-31.0) pg MCHC (32.0-36.0) g/dL RDW (11.5-14.5) % Plt Count (150-400) 10^3/uL MPV (7.4-10.4) fL Immature Gran % (Auto) (0.0-5.0) % Neut % (Auto) (50.0-70.0) % Lymph % (Auto) (20.0-40.0) % [place] % (Auto) (2.0-8.0) % Eos % (Auto) (1.0-3.0) % Baso % (Auto) (0.0-1.0) % Neut # (Auto) (2.50-7.00) 10^3/uL Lymph # (Auto) (1.00-4.00) 10^3/uL [place] # (Auto) (0.10-0.80) 10^3/uL Eos # (Auto) (0.10-0.30) 10^3/uL Baso # (Auto) (0.00-0.10) 10^3/uL Immature Gran # (Auto) (0.00-0.50) 10^3/uL APTT (22.8-31.4) SEC Sodium 134 L (136-145) mmol/L Potassium 4.8 (3.3-5.3) mmol/L Chloride 101 (98-115) mmol/L Carbon Dioxide 18.1 L (21.0-32.0) mmol/L Anion Gap 19.7 H (5-15) mmol/L BUN 57 H* (6-25) mg/dL Creatinine 0.90 (0.51-1.17) mg/dL Est Cr Clr Drug Dosing 18.60 mL/min Estimated GFR (MDRD) 59 mL/min Glucose 124 H (75 - 99) mg/dL Calcium 9.3 (8.7-10.3) mg/dL Total Bilirubin (0.2-1.0) mg/dL AST (15-37) U/L ALT (12-78) U/L Alkaline Phosphatase (46-116) IU/L Troponin I 0.73 H* (0.00-0.070) ng/mL B-Natriuretic Peptide 461 H (0-100) pg/mL Total Protein (6.4-8.2) g/dL Albumin (3.00-4.80) g/dL Specimen Type Urincc Urine Color Yellow (YELLOW) Urine Appearance Slightly cloudy H (CLEAR) Urine pH 5.5 (5.0-9.0) Ur Specific [place] 1.015 (1.005-1.030) Urine Protein 30 H (NEGATIVE) mg/dL Urine Glucose (UA) Negative (NEGATIVE) mg/dL Urine Ketones Trace H (NEGATIVE) mg/dL Urine Occult Blood Trace-intact H (NEGATIVE) Urine Nitrite Negative (NEGATIVE) Urine Bilirubin Negative (NEGATIVE) Urine Urobilinogen 0.2 (0.2-1.0) E.U./dL Ur Leukocyte Esterase Trace H (NEGATIVE) Urine RBC 0-5 (0-5) /HPF Urine WBC >100 H (0-5) /HPF Ur Epithelial Cells Few /LPF Urine Bacteria Few (NONE TO FEW) /HPF Result Diagrams: 03/27/20 10:30 03/28/20 07:17 Sepsis Event Note - Evaluation Sepsis Screening Result: No Definite Risk - Focused Exam Vital Signs: Vital Signs Temp Pulse Pulse Resp BP BP Pulse Ox 03/28/20 08:24 94/58 L 03/28/20 08:23 67 94/58 L 03/28/20 08:00 03/28/20 06:34 97.7 F 60 18 120/78 97 03/28/20 02:33 97.1 F 62 18 121/75 100 03/27/20 23:24 99 F 66 16 115/80 99 03/27/20 23:15 119 H 92 L Pulse Ox 03/28/20 08:24 03/28/20 08:23 03/28/20 08:00 97 03/28/20 06:34 03/28/20 02:33 03/27/20 23:24 03/27/20 23:15 Date Exam was Performed: 07/16/20 Time Exam was Performed: 10:41 Problem List Initiated/Reviewed/Updated: Yes Orders Last 24hrs: Active Orders 24 hr Category Date Time Status Patient Status [ADT] Routine ADT 03/27/20 12:45 Active EKG Documentation Completion [RC] ASDIRECTED Care 03/28/20 06:00 Active Oxygen Therapy [RC] .PRN Care 03/28/20 07:53 Active Up to Chair [RC] 09,21 Care 03/27/20 17:17 Active Heart Healthy Diet [DIET] Diet 03/27/20 Dinner Active Hemoccult [OCCULT BLOOD DIAGNOSTIC] [OP] Routine Lab 03/27/20 23:00 Ordered Acetaminophen [Tylenol] Med 03/27/20 13:13 Active 650 mg PO Q4H PRN Acetaminophen/HYDROcodone [[place] 325-5 MG] Med 03/27/20 16:53 Active 1.5 tab PO BID PRN Aspirin Med 03/28/20 21:00 Active 81 mg PO BEDTIME Calcium Carbonate Med 03/27/20 21:00 Active 600 mg PO BID Cholecalciferol (Vitamin D3) [Vitamin D3] Med 03/28/20 09:00 Active 50 mcg PO DAILY ClonazePAM [KlonoPIN] Med 03/27/20 16:53 Active 0.125 mg PO DAILY PRN ClonazePAM [KlonoPIN] Med 03/27/20 16:53 Active 0.25 mg PO BEDTIME PRN Clopidogrel [Plavix] Med 03/28/20 09:00 Active 75 mg PO DAILY FA/Lycopene/Lut/MV,Ca,Iron,Min [Centrum] Med 03/28/20 09:00 Active 1 tab PO DAILY Levothyroxine [Synthroid] Med 03/28/20 07:30 Active 50 mcg PO ACBREAKFAST Loperamide [Imodium] Med 03/28/20 09:00 Pending 1 mg PO BID Non-Formulary Medication [NF Drug] Med 03/27/20 16:53 Active 1 applic TOP Q4HR PRN Ondansetron [Zofran ODT] Med 03/27/20 16:53 Active 4 mg PO Q6H PRN Sodium Chloride 0.9% [Normal Saline] 50 ml Med 03/27/20 11:30 Active IV ASDIRECTED atenoloL [Tenormin] Med 03/27/20 15:00 Active 50 mg PO DAILY lisinopriL [Prinivil] Med 03/28/20 09:00 Active 40 mg PO DAILY traMADol [Ultram] Med 03/27/20 16:53 Active 50 mg PO BID PRN Resuscitation Status Routine Resus Stat 03/27/20 17:15 Ordered EKG 12 Lead [EK] Routine Ther 03/28/20 06:00 Ordered EKG 12 Lead [EK] Stat Ther 03/27/20 10:51 Ordered Medication Orders Acetaminophen (Tylenol) 650 mg PO Q4H PRN PRN Reason: Pain Last Admin: 03/27/20 13:40 Dose: 650 mg Documented by: SOCRATES Hydrocodone Bitart/Acetaminophen ([place] 325-5 Mg) 1.5 tab PO BID PRN PRN Reason: moderate pain Last Admin: 03/28/20 05:09 Dose: 1.5 tab Documented by: CÉSAR Aspirin (Aspirin) 81 mg PO BEDTIME REPLACED BY [facility] Atenolol (Tenormin) 50 mg PO DAILY REPLACED BY [facility] Last Admin: 03/28/20 08:23 Dose: 50 mg Documented by: JOSE A Admin: 03/27/20 15:40 Dose: 50 mg Documented by: SOCRATES Calcium Carbonate/Glycine (Calcium Carbonate) 600 mg PO BID REPLACED BY [facility] Last Admin: 03/27/20 20:45 Dose: 600 mg Documented by: CÉSAR Cholecalciferol (Vitamin D3) 50 mcg PO DAILY REPLACED BY [facility] Clonazepam (Klonopin) 0.125 mg PO DAILY PRN PRN Reason: anxiety` Clonazepam (Klonopin) 0.25 mg PO BEDTIME PRN PRN Reason: Insomnia Clopidogrel Bisulfate (Plavix) 75 mg PO DAILY REPLACED BY [facility] Last Admin: 03/28/20 08:22 Dose: 75 mg Documented by: JOSE A Sodium Chloride (Normal Saline) 50 mls @ 200 mls/min IV ASDIRECTED REPLACED BY [facility] Last Admin: 03/27/20 15:14 Dose: 200 mls/min Documented by: HEATHER Levothyroxine Sodium (Synthroid) 50 mcg PO ACBREAKFAST REPLACED BY [facility] Last Admin: 03/28/20 07:46 Dose: 50 mcg Documented by: JOSE A Lisinopril (Prinivil) 40 mg PO DAILY REPLACED BY [facility] Last Admin: 03/28/20 08:24 Dose: 40 mg Documented by: JOSE A Loperamide HCl (Imodium) 1 mg PO BID [facility] Multivitamins/Minerals (Centrum) 1 tab PO DAILY [facility] Pain Relief Lotion 1 applic TOP Q4HR PRN PRN Reason: Pain Ondansetron HCl (Zofran Odt) 4 mg PO Q6H PRN PRN Reason: Nausea Last Admin: 03/28/20 10:14 Dose: 4 mg Documented by: JOSE A Admin: 03/28/20 06:02 Dose: 4 mg Documented by: Admin: 03/27/20 23:36 Dose: 4 mg Documented by: CÉSAR Tramadol HCl (Ultram) 50 mg PO BID PRN PRN Reason: Pain Last Admin: 03/27/20 22:47 Dose: 50 mg Documented by: CÉSAR Assessment/Plan Comment:: History of present illness Mx Hobson is a very pleasant 89-year-old fragile thin female who was admitted into inpatient status for acute coronary syndrome. She presented via EMS with 4-5 day hx of nausea, abdominal pain, anorexia and it was determined that she was having or had had an ND. Although she never did have chest pain or shortness of breath she does suffer from significant musculoskeletal pains especially in her knees and lower extremities in which she is on chronic opioid therapy. She is on a pain management contract at [facility]. Although she does live by herself she has a daughter that checks in on her daily. The patient, and her 2 daughters refused transfer to tertiary care. We felt the patient could benefit from an angiogram with possible stent placement however ED provider discussed extensively with the family and they decided to treat the ND with conservative maximal medical and not be referred for any invasive approach consultation. ED findings/workup EKG: ST elevation with inverted T-waves in V3 and V4 Trop 2.54 BNP [address]SA [address]: no mass, adenopathy or aneurysm. Moderate small bowel distention and likely intestinal angina. Hospital course to date She was admitted, heparin drip was started, she was given aspirin, labetalol, loaded with 300 mg Clopidogrel. aPTT is followed closely however the patient did have a mild blood in stools therefore heparin drip was subsequently d iscontinued. Troponin trending down considerably. Primary hospital problems --Acute coronary syndrome, STEMI, resolving, ASA and Clopidogrel, Atenolol, start Statin, schedule ECHO --HF, ACEI --Dehydration, pre-renal. Gentle IV fluids today --HTN, BP slightly low with newly added BB, May have to decrease ACEI --Cachexia with weight loss --Weakness Chronic/stable problems Hypothyroidism, on thyroid replacement therapy IV B12 deficiency Anxiety Arthritis on COT Disposition/overall plan Continue inpatient stay as medication management and adjustment will be required. Anticipate placement in swing bed status here at [place]. Long discussion with daughter with prognosis, possibility hospice care at some point was discussed. Currently the plan would be for the patient to go back to her home. Physical therapy consultation we placed. Patient is a DO NOT RESUSCITATE - Mortality Measure Prognosis:: Poor
[2020-03-28] MEDS ORDERED: Sodium Chloride 0.9% 1,000 ML IV SCH (11:15)
[2020-03-28] MEDS: Acetaminophen 325 MG Tab PO PRN (11:59)
[2020-03-28] MEDS: traMADol 50 MG Tab PO PRN (14:53)
[2020-03-28] MEDS: Aspirin 81 MG Tab.Chew PO SCH (21:46)
[2020-03-28] MEDS: atorvaSTATin 10 MG Tab PO SCH (21:46)
[2020-03-29] MEDS: traMADol 50 MG Tab PO PRN ×2 (02:07→15:31)
[2020-03-29] MEDS: Levothyroxine 50 MCG Tab PO SCH (07:32)
[2020-03-29] MEDS: Clopidogrel 75 MG Tab PO SCH (08:35)
[2020-03-29] MEDS: Cholecalciferol (Vitamin D3) 25 MCG Tab PO SCH (08:35)
[2020-03-29] MEDS: Multivitamins with Minerals/Iron/Folic Acid/Lycopene Tab PO SCH (08:36)
[2020-03-29] MEDS: Calcium Carbonate 600 MG Tab PO SCH ×2 (08:36→20:18)
--- NOTE | 2020-03-29 10:04 | PCM.PN ---
- General Info Date of Service: 03/29/20 Functional Status: Reports: Pain Controlled, Tolerating Diet, Ambulating, Urinating. Denies: New Symptoms - Review of Systems General: Reports: Weakness. Denies: Fever, Chills, Night Sweats, Appetite HEENT: Reports: No Symptoms Pulmonary: Reports: No Symptoms Cardiovascular: Reports: No Symptoms Gastrointestinal: Denies: Diarrhea, Nausea Genitourinary: Reports: No Symptoms Skin: Denies: Dryness Neurological: Reports: No Symptoms Psychiatric: Reports: No Symptoms - Patient Data Vitals - Most Recent: Last Vital Signs Temp 97.8 F 03/29/20 05:56 Pulse 66 03/29/20 05:56 Resp 18 03/29/20 05:56 BP 136/76 03/29/20 05:56 Pulse Ox 97 03/29/20 05:56 Weight - Most Recent: 56 lb 9.6 oz I&O - Last 24 Hours: Intake & Output 03/28/20 03/29/20 03/29/20 22:59 06:59 14:59 Intake Total 480 160 Balance 480 160 Med Orders - Current: Current Medications Acetaminophen (Tylenol) 650 mg PO Q4H PRN PRN Reason: Pain Last Admin: 03/28/20 11:59 Dose: 650 mg Documented by: Hydrocodone Bitart/Acetaminophen ([place] 325-5 Mg) 1.5 tab PO BID PRN PRN Reason: moderate pain Last Admin: 03/28/20 21:46 Dose: 1.5 tab Documented by: Aspirin (Aspirin) 81 mg PO BEDTIME [facility] Last Admin: 03/28/20 21:46 Dose: 81 mg Documented by: Atenolol (Tenormin) 50 mg PO DAILY [facility] Last Admin: 03/28/20 08:23 Dose: 50 mg Documented by: Atorvastatin Calcium (Lipitor) 10 mg PO BEDTIME [facility] Last Admin: 03/28/20 21:46 Dose: 10 mg Documented by: Calcium Carbonate/Glycine (Calcium Carbonate) 600 mg PO BID [facility] Last Admin: 03/29/20 08:36 Dose: 600 mg Documented by: Cholecalciferol (Vitamin D3) 50 mcg PO DAILY [facility] Last Admin: 03/29/20 08:35 Dose: 50 mcg Documented by: Clonazepam (Klonopin) 0.125 mg PO DAILY PRN PRN Reason: anxiety` Clonazepam (Klonopin) 0.25 mg PO BEDTIME PRN PRN Reason: Insomnia Clopidogrel Bisulfate (Plavix) 75 mg PO DAILY [facility] Last Admin: 03/29/20 08:35 Dose: 75 mg Documented by: Sodium Chloride (Normal Saline) 1,000 mls @ 50 mls/hr IV ASDIRECTED [facility] Last Admin: 03/28/20 12:18 Dose: 50 mls/hr Documented by: Levothyroxine Sodium (Synthroid) 50 mcg PO ACBREAKFAST [facility] Last Admin: 03/29/20 07:32 Dose: 50 mcg Documented by: Lisinopril (Prinivil) 40 mg PO DAILY [facility] Last Admin: 03/28/20 08:24 Dose: 40 mg Documented by: Multivitamins/Minerals (Centrum) 1 tab PO DAILY [facility] Last Admin: 03/29/20 08:36 Dose: 1 tab Documented by: Pain Relief Lotion 1 applic TOP Q4HR PRN PRN Reason: Pain Last Admin: 03/28/20 14:54 Dose: 1 applic Documented by: Ondansetron HCl (Zofran Odt) 4 mg PO Q4H PRN PRN Reason: Nausea/Vomiting Tramadol HCl (Ultram) 50 mg PO BID PRN PRN Reason: Pain Last Admin: 03/29/20 02:07 Dose: 50 mg Documented by: Discontinued Medications Hydrocodone Bitart/Acetaminophen ([place]rumpler 325-5 Mg) 1.5 tab PO BID PRN PRN Reason: Pain Last Admin: 03/27/20 16:53 Dose: 1.5 tab Documented by: Aspirin (Aspirin) Confirm Administered Dose 324 mg .ROUTE .STK-MED ONE Stop: 03/27/20 10:46 Last Admin: 03/27/20 10:52 Dose: Not Given Documented by: Aspirin (Aspirin) 324 mg PO ONETIME ONE Stop: 03/27/20 10:52 Last Admin: 03/27/20 10:47 Dose: 324 mg Documented by: Clopidogrel Bisulfate (Plavix) 300 mg PO ONETIME ONE Stop: 03/27/20 14:55 Last Admin: 03/27/20 15:39 Dose: 300 mg Documented by: Heparin Sodium (Porcine) (Heparin Sodium) 1,600 units IVPUSH .BOLUS ONE Stop: 03/27/20 14:45 Last Admin: 03/27/20 15:21 Dose: 1,600 units Documented by: Heparin Sodium (Porcine) (Heparin Sodium) 420 units IVPUSH .BOLUS ONE Stop: 03/27/20 22:25 Last Admin: 03/27/20 22:48 Dose: 420 units Documented by: Sodium Chloride (Normal Saline) 1,000 mls @ 999 mls/hr IV .BOLUS ONE Stop: 03/27/20 11:43 Last Admin: 03/27/20 10:50 Dose: 999 mls/hr Documented by: Sodium Chloride (Normal Saline) Confirm Administered Dose 1,000 mls @ as directed .ROUTE .STK-MED ONE Stop: 03/27/20 10:46 Last Admin: 03/27/20 10:52 Dose: Not Given Documented by: Sodium Chloride (Normal Saline) 50 mls @ 200 mls/min IV ASDIRECTED [facility] Last Admin: 03/27/20 15:14 Dose: 200 mls/min Documented by: Heparin Sodium/Dextrose () 250 mls @ 3.337 mls/hr IV TITRATE [facility]; Protocol Last Titration: 03/27/20 22:54 Dose: 14 units/kg/hr, 3.893 mls/hr Documented by: Sodium Chloride (Normal Saline) 300 mls @ 999 mls/hr IV .BOLUS ONE Stop: 03/28/20 11:30 Last Admin: 03/28/20 11:33 Dose: 999 mls/hr Documented by: Iopamidol (Isovue-[id number] (76%)) 100 ml IV ONETIME ONE Stop: 03/27/20 11:20 Last Admin: 03/27/20 15:14 Dose: 75 ml Documented by: Loperamide HCl (Imodium) 2 mg PO ONETIME ONE Stop: 03/27/20 23:36 Last Admin: 03/28/20 00:11 Dose: 2 mg Documented by: Loperamide HCl (Imodium) 1 mg PO BID [facility] Last Admin: 03/28/20 19:42 Dose: Not Given Documented by: Lorazepam (Ativan) 0.25 mg PO Q4H PRN PRN Reason: Agitation/anxiety/restlessness Stop: 03/28/20 04:30 Non-Formulary Medication (Clobetasol [Clobetasol Propionate 0.05% Cream]) 1 applic TOP DAILY PRN PRN Reason: Itching Non-Formulary Medication (Cyanocobalamin (Vitamin B-12) [Vitamin B-12]) 100 mcg PO DAILY [facility] Non-Formulary Medication (Ketotifen Fumarate [Zaditor]) 1 drop EYEBOTH BID PRN PRN Reason: Itching Non-Formulary Medication (Lutein/Zeaxanthin [Lutein-Zeaxanthin 25-5 Mg Sfgl]) 1 tab PO DAILY [facility] Omeprazole (Omeprazole) 20 mg PO NOW STA Stop: 03/27/20 23:55 Last Admin: 03/28/20 00:11 Dose: 20 mg Documented by: Ondansetron HCl (Zofran Odt) 4 mg PO Q6H PRN PRN Reason: Nausea/Vomiting Last Admin: 03/27/20 16:53 Dose: 4 mg Documented by: Ondansetron HCl (Zofran Odt) 4 mg PO Q6H PRN PRN Reason: Nausea Last Admin: 03/28/20 10:14 Dose: 4 mg Documented by: - Exam Quality Assessment: No: Supplemental Oxygen General: Alert, Oriented, Cooperative, No Acute Distress Neck: Supple Lungs: Clear to Auscultation, Normal Respiratory Effort Cardiovascular: Regular Rate, Regular Rhythm. No: No Murmurs, Irregular Rhythm, Bradycardia, Tachycardia, Gallops, Rubs GI/Abdominal Exam: Soft (Female) Exam: Deferred Extremities: No: Pedal Edema Peripheral Pulses: 2+: Radial (R), Femoral (L) Skin: No: Rash Neurological: No New Focal Deficit Psy/Mental Status: Alert, Normal Affect, Normal Mood Sepsis Event Note - Evaluation Sepsis Screening Result: No Definite Risk - Focused Exam Vital Signs: Vital Signs Temp Pulse Pulse Resp BP Pulse Ox 03/29/20 05:56 97.8 F 66 18 136/76 97 03/29/20 03:00 98.0 F 58 L 16 110/70 96 03/28/20 23:00 97.5 F 61 18 122/72 92 L Date Exam was Performed: 03/29/20 Time Exam was Performed: 09:54 - Problem List Review Problem List Initiated/Reviewed/Updated: Yes - My Orders Last 24 Hours: My Active Orders 03/28/20 09:00 Clopidogrel [Plavix] 75 mg PO DAILY 03/28/20 11:14 Consult to Physical Therapy [PT Evaluation and Treatment] [CONS] Routine 03/28/20 11:15 Sodium Chloride 0.9% [Normal Saline] 1,000 ml IV ASDIRECTED 03/28/20 19:16 Ondansetron [Zofran ODT] 4 mg PO Q4H PRN 03/28/20 21:00 atorvaSTATin [Lipitor] 10 mg PO BEDTIME 03/29/20 09:00 BASIC METABOLIC PANEL,BMP [CHEM] Routine - Plan Plan:: History of present illness Mx Hobson is a very pleasant 89-year-old fragile thin female who was admitted into inpatient status for acute coronary syndrome. She presented via EMS with 4-5 day hx of nausea, abdominal pain, anorexia and it was determined that she was having or had had an WA. Although she never did have chest pain or shortness of breath she does suffer from significant musculoskeletal pains especially in her knees and lower extremities in which she is on chronic opioid therapy. She is on a pain management contract at [facility]. Although she does live by herself she has a daughter that checks in on her daily. The patient, and her 2 daughters refused transfer to tertiary care. We felt the patient could benefit from an angiogram with possible stent placement however ED provider discussed extensively with the family and they decided to treat the WA with conservative maximal medical and not be referred for any invasive approach consultation. ED findings/workup EKG: ST elevation with inverted T-waves in V3 and V4 Trop 2.54 BNP [address] ASA [address]: no mass, adenopathy or aneurysm. Moderate small bowel distention and likely intestinal angina. Hospital course to date She was admitted, heparin drip was started, she was given aspirin, labetalol, loaded with 300 mg Clopidogrel. aPTT is followed closely however the patient did have a mild blood in stools therefore heparin drip was subsequently discontinued. Troponin trending down considerably. 03/29: Patient sitting in chair conversing and visiting with family. No complaints. Fully dressed no diarrhea. IV was discontinued last night after losing site and patient refused to be placed back. No chest pain. No diarrhea, nausea or vomiting or abdominal pain. Ate breakfast this morning. Physical will see patient this morning for possible swing bed eligibility. No anger on telemetry. Seems to be tolerating cardiac medications well. 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 PT will see her today anticipate placing in swing bed tomorrow if she meets PT criteria as patient does desire to eventually be placed back into her home. Patient is a DO NOT RESUSCITATE
[2020-03-29] MEDS: Atenolol 25 MG Tab PO SCH (10:07)
[2020-03-29] MEDS: Lisinopril 10 MG Tab PO SCH (10:07)
[2020-03-29 11:23] LABS: ANION GAP 12.2 mmol/L (5-15); CHLORIDE,CL 102 mmol/L (98-115); SODIUM,NA 135 mmol/L (136-145)
[2020-03-29] MEDS: Ondansetron 4 MG Tab.DIS PO PRN ×2 (15:31→21:26)
[2020-03-29] MEDS: Aspirin 81 MG Tab.Chew PO SCH (20:18)
[2020-03-29] MEDS: atorvaSTATin 10 MG Tab PO SCH (20:18)
[2020-03-29] MEDS: Acetaminophen/HYDROcodone 325-5 MG Tab PO PRN (21:23)
[2020-03-30] MEDS: traMADol 50 MG Tab PO PRN (05:47)
[2020-03-30] MEDS: Levothyroxine 50 MCG Tab PO SCH (06:32)
[2020-03-30] MEDS: Ondansetron 4 MG Tab.DIS PO PRN (08:45)
[2020-03-30] MEDS: Clopidogrel 75 MG Tab PO SCH (10:53)
[2020-03-30] MEDS: Lisinopril 10 MG Tab PO SCH (10:53)
[2020-03-30] MEDS: Calcium Carbonate 600 MG Tab PO SCH (10:53)
[2020-03-30] MEDS: Multivitamins with Minerals/Iron/Folic Acid/Lycopene Tab PO SCH (10:53)
[2020-03-30] MEDS: Atenolol 25 MG Tab PO SCH (10:54)
[2020-03-30] MEDS: Cholecalciferol (Vitamin D3) 25 MCG Tab PO SCH (10:58)
[2020-03-30 10:59] VITALS: BP 144/76; PULSE 60
--- NOTE | 2020-03-30 14:26 | PCM.DCSUM1 ---
Discharge Summary - Hospital Course Diagnosis: Stroke: No - Discharge Data Discharge Date: 03/30/20 Discharge Disposition: DC/Tfer W/I Hosp To Swing 61 Condition: Good - Referral to Home Health Primary Care Physician: Marquez Robbins NP - Patient Summary/Data Consults: Consultations 03/28/20 11:14 Consult to Physical Therapy [PT Evaluation and Treatment] [CONS] Routine - Discharge Plan Home Medications: Home Meds Acetaminophen/HYDROcodone [[place] 325-5 MG] 1.5 tab PO BID PRN 02/03/16 [History] Aspirin 81 mg PO BEDTIME 02/03/16 [History] ClonazePAM [KlonoPIN] 0.25 mg PO BEDTIME PRN 02/03/16 [History] Ketotifen Fumarate [Zaditor] 1 drop EYEBOTH BID PRN 02/03/16 [History] Levothyroxine [Synthroid] 50 mcg PO ACBREAKFAST 02/03/16 [History] Lutein/Zeaxanthin [Lutein-Zeaxanthin 25-5 mg Sfgl] 1 tab PO DAILY 02/03/16 [History] Multivitamins/Minerals [Vitamins and Minerals] 1 tab PO DAILY 02/03/16 [History] Ondansetron [Zofran] 4 mg PO Q6H PRN 12/12/18 [History] traMADol [Ultram] 50 mg PO BID PRN 12/12/18 [History] Cholecalciferol (Vitamin D3) [Vitamin D3] 2,000 unit PO DAILY 04/06/19 [History] Clobetasol [Clobetasol Propionate 0.05% Cream] 1 applic TOP DAILY PRN 04/06/19 [History] ClonazePAM [KlonoPIN] 0.125 mg PO DAILY PRN 04/06/19 [History] Lisinopril 40 mg PO DAILY 09/07/19 [History] Calcium Carbonate [Calcium] 600 mg PO BID 03/27/20 [History] Cyanocobalamin (Vitamin B-12) [Vitamin B-12] 100 mcg PO DAILY 03/27/20 [History] Non-Formulary Medication [NF Drug] 1 applic TOP Q4HR PRN 03/27/20 [History] Forms: ED Department Discharge Referrals: Marquez Robbins TABLE [employer] F[employer]DER [Primary Care Provider] - - Discharge Summary/Plan Comment DC Time >30 min.: Yes Discharge Summary/Plan Comment: See complete review of systems and physical exam same day on history and physical Final diagnosis Acute Coronary syndrome, stemi Cachexia with weight loss, Debilitation/frailty, Weakness, Fall Risk, Brief history summary 89-year-old female who was initially admitted into inpatient status on March 27 when she suffered from STEMI/ACS. She presented via EMS with 4-5 day hx of nausea, abdominal pain, anorexia and it was determined that she was having or had had an LA. EKG and troponins demonstrate STEMI however the patient refused tertiary care or cardiac invasiveness approach after careful consideration. She is a DNR and she was treated with her wishes of maximal medical medication therapy only. Hospital course For 3 days of inpatient stay with cardiac monitoring, addition of beta-blockers, anticoagulation, she was monitored on telemetry and she had no reperfusion arrhythmias. She quickly gained much of her strength back close to her baseline within 24 to 48 hours however PT felt very high fall risk and likely could benefit from some strengthening. On admission her EKG demonstrated ST elevation with inverted T-waves in V3 and V4, Trop 2.54, with a BNP 465, aspirin was given. Never had chest pain and her blood pressure remained adequate. Abd CT: no mass, adenopathy or aneurysm. Moderate small bowel distention and likely intestinal angina. Medication changes/adjustments upon transferring into swing bed Plavix, 75 mg p.o. OD, loading dose was given Atenolol 50 mg p.o. daily Atorvastatin 40 mg for a targeted non-HDL Aspirin 81 mg p.o. daily PPI due to age and aspirin Disposition/overall plan PT demonstrated that she had significant weakness and debilitation and likely could benefit from long term care here at [facility] with anticipation of her eventually going back home. - General Info Date of Service: 03/30/20 - Patient Data Vitals - Most Recent: Last Vital Signs Temp 97.2 F 03/30/20 07:00 Pulse 60 03/30/20 10:54 Resp 20 03/30/20 07:00 BP 144/76 H 03/30/20 10:54 Pulse Ox 96 03/30/20 07:00 Weight - Most Recent: 56 lb 9.6 oz I&O - Last 24 hours: Intake & Output 03/29/20 03/30/20 03/30/20 22:59 06:59 14:59 Intake Total 475 150 Output Total 300 450 Balance 175 -300 Med Orders - Current: Current Medications Discontinued Medications Acetaminophen (Tylenol) 650 mg PO Q4H PRN PRN Reason: Pain Last Admin: 03/28/20 11:59 Dose: 650 mg Documented by: Hydrocodone Bitart/Acetaminophen ([place] 325-5 Mg) 1.5 tab PO BID PRN PRN Reason: Pain Last Admin: 03/27/20 16:53 Dose: 1.5 tab Documented by: Hydrocodone Bitart/Acetaminophen ([place] 325-5 Mg) 1.5 tab PO BID PRN PRN Reason: moderate pain Last Admin: 03/29/20 21:23 Dose: 1.5 tab Documented by: Aspirin (Aspirin) Confirm Administered Dose 324 mg .ROUTE .STK-MED ONE Stop: 03/27/20 10:46 Last Admin: 03/27/20 10:52 Dose: Not Given Documented by: Aspirin (Aspirin) 324 mg PO ONETIME ONE Stop: 03/27/20 10:52 Last Admin: 03/27/20 10:47 Dose: 324 mg Documented by: Aspirin (Aspirin) 81 mg PO BEDTIME [facility] Last Admin: 03/29/20 20:18 Dose: 81 mg Documented by: Atenolol (Tenormin) 50 mg PO DAILY [facility] Last Admin: 03/30/20 10:54 Dose: 50 mg Documented by: Atorvastatin Calcium (Lipitor) 10 mg PO BEDTIME [facility] Last Admin: 03/29/20 20:18 Dose: 10 mg Documented by: Calcium Carbonate/Glycine (Calcium Carbonate) 600 mg PO BID [facility] Last Admin: 03/30/20 10:53 Dose: 600 mg Documented by: Cholecalciferol (Vitamin D3) 50 mcg PO DAILY [facility] Last Admin: 03/30/20 10:58 Dose: 50 mcg Documented by: Clonazepam (Klonopin) 0.125 mg PO DAILY PRN PRN Reason: anxiety` Clonazepam (Klonopin) 0.25 mg PO BEDTIME PRN PRN Reason: Insomnia Clopidogrel Bisulfate (Plavix) 300 mg PO ONETIME ONE Stop: 03/27/20 14:55 Last Admin: 03/27/20 15:39 Dose: 300 mg Documented by: Clopidogrel Bisulfate (Plavix) 75 mg PO DAILY [facility] Last Admin: 03/30/20 10:53 Dose: 75 mg Documented by: Heparin Sodium (Porcine) (Heparin Sodium) 1,600 units IVPUSH .BOLUS ONE Stop: 03/27/20 14:45 Last Admin: 03/27/20 15:21 Dose: 1,600 units Documented by: Heparin Sodium (Porcine) (Heparin Sodium) 420 units IVPUSH .BOLUS ONE Stop: 03/27/20 22:25 Last Admin: 03/27/20 22:48 Dose: 420 units Documented by: Sodium Chloride (Normal Saline) 1,000 mls @ 999 mls/hr IV .BOLUS ONE Stop: 03/27/20 11:43 Last Admin: 03/27/20 10:50 Dose: 999 mls/hr Documented by: Sodium Chloride (Normal Saline) Confirm Administered Dose 1,000 mls @ as directed .ROUTE .STK-MED ONE Stop: 03/27/20 10:46 Last Admin: 03/27/20 10:52 Dose: Not Given Documented by: Sodium Chloride (Normal Saline) 50 mls @ 200 mls/min IV ASDIRECTED ACOSTA Last Admin: 03/27/20 15:14 Dose: 200 mls/min Documented by: Heparin Sodium/Dextrose () 250 mls @ 3.337 mls/hr IV TITRATE [facility]STA; Protocol Last Titration: 03/27/20 22:54 Dose: 14 units/kg/hr, 3.893 mls/hr Documented by: Sodium Chloride (Normal Saline) 1,000 mls @ 50 mls/hr IV ASDIRECTED ACOSTA Last Admin: 03/28/20 12:18 Dose: 50 mls/hr Documented by: Sodium Chloride (Normal Saline) 300 mls @ 999 mls/hr IV .BOLUS ONE Stop: 03/28/20 11:30 Last Admin: 03/28/20 11:33 Dose: 999 mls/hr Documented by: Iopamidol (Isovue-370 (76%)) 100 ml IV ONETIME ONE Stop: 03/27/20 11:20 Last Admin: 03/27/20 15:14 Dose: 75 ml Documented by: Levothyroxine Sodium (Synthroid) 50 mcg PO ACBREAKFAST [facility] Last Admin: 03/30/20 06:32 Dose: 50 mcg Documented by: Lisinopril (Prinivil) 40 mg PO DAILY [facility] Last Admin: 03/30/20 10:53 Dose: 40 mg Documented by: Loperamide HCl (Imodium) 2 mg PO ONETIME ONE Stop: 03/27/20 23:36 Last Admin: 03/28/20 00:11 Dose: 2 mg Documented by: Loperamide HCl (Imodium) 1 mg PO BID [facility] Last Admin: 03/28/20 19:42 Dose: Not Given Documented by: Lorazepam (Ativan) 0.25 mg PO Q4H PRN PRN Reason: Agitation/anxiety/restlessness Stop: 03/28/20 04:30 Multivitamins/Minerals (Centrum) 1 tab PO DAILY [facility] Last Admin: 03/30/20 10:53 Dose: 1 tab Documented by: Non-Formulary Medication (Clobetasol [Clobetasol Propionate 0.05% Cream]) 1 applic TOP DAILY PRN PRN Reason: Itching Non-Formulary Medication (Cyanocobalamin (Vitamin B-12) [Vitamin B-12]) 100 mcg PO DAILY [facility] Non-Formulary Medication (Ketotifen Fumarate [Zaditor]) 1 drop EYEBOTH BID PRN PRN Reason: Itching Non-Formulary Medication (Lutein/Zeaxanthin [Lutein-Zeaxanthin 25-5 Mg Sfgl]) 1 tab PO DAILY [facility] Pain Relief Lotion 1 applic TOP Q4HR PRN PRN Reason: Pain Last Admin: 03/28/20 14:54 Dose: 1 applic Documented by: Omeprazole (Omeprazole) 20 mg PO NOW STA Stop: 03/27/20 23:55 Last Admin: 03/28/20 00:11 Dose: 20 mg Documented by: Ondansetron HCl (Zofran Odt) 4 mg PO Q6H PRN PRN Reason: Nausea/Vomiting Last Admin: 03/27/20 16:53 Dose: 4 mg Documented by: Ondansetron HCl (Zofran Odt) 4 mg PO Q6H PRN PRN Reason: Nausea Last Admin: 03/28/20 10:14 Dose: 4 mg Documented by: Ondansetron HCl (Zofran Odt) 4 mg PO Q4H PRN PRN Reason: Nausea/Vomiting Last Admin: 03/30/20 08:45 Dose: 4 mg Documented by: Tramadol HCl (Ultram) 50 mg PO BID PRN PRN Reason: Pain Last Admin: 03/30/20 05:47 Dose: 50 mg Documented by:
== END 2020-03-30 11:00 | disposition swing bed (61) | DRG 281 ==
LOC: KA.ED 10:00 → KA.MS 12:45
PROVIDERS: ADMIT Nurse Practitioner Family; ATTEND Nurse Practitioner Family
DX: I21.3 ST elevation (STEMI) myocardial infarction of unspecified site (principal); R64 Cachexia; H54.7 Unspecified visual loss; Z68.1 Body mass index [BMI] 19.9 or less, adult; Z66 Do not resuscitate; K21.9 Gastro-esophageal reflux disease without esophagitis; I11.0 Hypertensive heart disease with heart failure; I50.9 Heart failure, unspecified; M19.90 Unspecified osteoarthritis, unspecified site; K59.09 Other constipation; F41.9 Anxiety disorder, unspecified; Z87.19 Personal history of other diseases of the digestive system; Z85.41 Personal history of malignant neoplasm of cervix uteri; Z98.49 Cataract extraction status, unspecified eye; E03.9 Hypothyroidism, unspecified; F17.210 Nicotine dependence, cigarettes, uncomplicated; I24.9 Acute ischemic heart disease, unspecified; Z91.048 Other nonmedicinal substance allergy status; E53.8 Deficiency of other specified B group vitamins; E86.0 Dehydration; Z79.890 Hormone replacement therapy; Z98.42 Cataract extraction status, left eye; Z98.41 Cataract extraction status, right eye; Z87.440 Personal history of urinary (tract) infections; Z90.710 Acquired absence of both cervix and uterus; Z90.722 Acquired absence of ovaries, bilateral; Z90.49 Acquired absence of other specified parts of digestive tract; Z79.82 Long term (current) use of aspirin; Z79.899 Other long term (current) drug therapy; Z88.0 Allergy status to penicillin; Z88.8 Allergy status to other drugs, medicaments and biological substances; Z88.2 Allergy status to sulfonamides
CPT/HCPCS: 36415; 74177; 80048; 80053; 80061; 81001; 83880; 84484; 85025; 85730; 93005; 96360; 97162-GP; 99284; 99285-25; A9270-GY; J1644; J7030; J7050; Q9967

== ENCOUNTER 2020-03-30 08:54 | Inpatient (IN) | payer MEDICARE, OTHER ==
[2020-03-30] MEDS ORDERED: ClonazePAM 0.5 MG Tab PO PRN ×2 (09:38)
[2020-03-30] MEDS ORDERED: Acetaminophen 325 MG Tab PO PRN (09:38)
[2020-03-30] MEDS ORDERED: Sodium Chloride 0.9% 1,000 ML IV SCH (09:38)
--- NOTE | 2020-03-30 14:16 | PCM.HP.2 ---
H&P History of Present Illness - General Date of Service: 03/30/20 Admit Problem/Dx: Admission Diagnosis/Problem Admission Diagnosis/Problem Weakness Source of Information: Patient - Related Data Allergies/Adverse Reactions: Allergies Allergy/AdvReac Type Severity Reaction Status Date / Time adhesive tape Allergy Itching Verified 03/27/20 10:12 Penicillins Allergy Cannot Verified 03/27/20 10:12 Remember sulfamethoxazole Allergy Cannot Verified 03/27/20 10:12 [From Bactrim] Remember trimethoprim [From Bactrim] Allergy Cannot Verified 03/27/20 10:12 Remember Home Medications: Home Meds Acetaminophen/HYDROcodone [Shade 325-5 MG] 1.5 tab PO BID PRN 02/03/16 [History] Aspirin 81 mg PO BEDTIME 02/03/16 [History] ClonazePAM [KlonoPIN] 0.25 mg PO BEDTIME PRN 02/03/16 [History] Ketotifen Fumarate [Zaditor] 1 drop EYEBOTH BID PRN 02/03/16 [History] Levothyroxine [Synthroid] 50 mcg PO ACBREAKFAST 02/03/16 [History] Lutein/Zeaxanthin [Lutein-Zeaxanthin 25-5 mg Sfgl] 1 tab PO DAILY 02/03/16 [History] Multivitamins/Minerals [Vitamins and Minerals] 1 tab PO DAILY 02/03/16 [History] Ondansetron [Zofran] 4 mg PO Q6H PRN 12/12/18 [History] traMADol [Ultram] 50 mg PO BID PRN 12/12/18 [History] Cholecalciferol (Vitamin D3) [Vitamin D3] 2,000 unit PO DAILY 04/06/19 [History] Clobetasol [Clobetasol Propionate 0.05% Cream] 1 applic TOP DAILY PRN 04/06/19 [History] ClonazePAM [KlonoPIN] 0.125 mg PO DAILY PRN 04/06/19 [History] Lisinopril 40 mg PO DAILY 09/07/19 [History] Calcium Carbonate [Calcium] 600 mg PO BID 03/27/20 [History] Cyanocobalamin (Vitamin B-12) [Vitamin B-12] 100 mcg PO DAILY 03/27/20 [History] Non-Formulary Medication [NF Drug] 1 applic TOP Q4HR PRN 03/27/20 [History] Past Medical History HEENT History: Reports: Cataract, Impaired Vision Cardiovascular History: Reports: Heart Failure, Hypertension Respiratory History: Reports: None Gastrointestinal History: Reports: Chronic Constipation, GI Bleed, Other (See Below) Genitourinary History: Reports: UTI, Recurrent [employer] History: Reports: Musculoskeletal History: Reports: Arthritis Neurological History: Reports: None Psychiatric History: Reports: Anxiety Endocrine/Metabolic History: Reports: Hypothyroidism Hematologic History: Reports: B12 Deficiency Immunologic History: Reports: None Oncologic (Cancer) History: Reports: Cervix Dermatologic History: Reports: None - Infectious Disease History Infectious Disease History: Reports: Chicken Pox, Measles, Mumps, Rubella - Past Surgical History Head Surgeries/Procedures: Reports: None HEENT Surgical History: Reports: Cataract Surgery Cardiovascular Surgical History: Reports: None Respiratory Surgical History: Reports: None GI Surgical History: Reports: Appendectomy, Colonoscopy, EGD Female Surgical History: Reports: Breast Biopsy, Hysterectomy, Salpingo- Oophorectomy Endocrine Surgical History: Reports: None Neurological Surgical History: Reports: None Musculoskeletal Surgical History: Reports: None Oncologic Surgical History: Reports: None Dermatological Surgical History: Reports: None Social & Family History - Family History Family Medical History: Noncontributory HEENT: Reports: None Cardiac: Reports: Other (See Below) Respiratory: Reports: None GI: Reports: None : Reports: None OBGYN: Reports: None Musculoskeletal: Reports: None Neurological: Reports: None Psychiatric: Reports: None Endocrine/Metabolic: Reports: None Hematologic: Reports: None Immunologic: Reports: None Dermatologic: Reports: None Oncologic: Reports: Bone, Colon, Esophageal, Lung, Thyroid Other Oncologic Family History: extensive family with cancer, father pancreatic, sister thyroid cancer, brother colon cancer, brother lung cancer, daughter cervical cancer - Caffeine Use Caffeine Use: Reports: Coffee H&P Review of Systems - Review of Systems: Review Of Systems: See Below General: Reports: Weakness, Decreased Appetite, Weight Loss. Denies: Fever, Chills, Malaise, Fatigue, Night Sweats, Diaphoresis, Weight Gain HEENT: Reports: No Symptoms Pulmonary: Reports: No Symptoms Cardiovascular: Reports: No Symptoms Gastrointestinal: Reports: Anorexia, Decreased Appetite. Denies: Abdominal Pain, Bloody Stool, Constipation, Diarrhea, Difficulty Swallowing, Distension, Melena, Mucous in Stool, Nausea, Vomiting Genitourinary: Reports: Incontinence Musculoskeletal: Reports: Leg Pain (Chronic leg pain bilaterally) Skin: Reports: No Symptoms Psychiatric: Denies: Confusion Neurological: Reports: Difficulty Walking, Weakness. Denies: Confusion Hematologic/Lymphatic: Reports: No Symptoms Immunologic: Reports: No Symptoms Exam - Exam Exam: See Below - Vital Signs Vital Signs: Last Vital Signs Temp 96.8 F L 03/30/20 12:23 Pulse 60 03/30/20 12:23 Resp 16 03/30/20 12:23 BP 144/76 H 03/30/20 12:23 Pulse Ox 96 03/30/20 12:23 Weight: 56 lb 8 oz - Exam Quality Assessment: No: Supplemental Oxygen General: Alert, Oriented, Cooperative HEENT: Mucosa Moist & [place] Neck: Supple, Trachea Midline, 2 Lungs: Clear to Auscultation, Normal Respiratory Effort Cardiovascular: Regular Rate, Regular Rhythm GI/Abdominal Exam: Normal Bowel Sounds, Soft, No Distention. No: Distended, Guarding, Rigid, Rebound, Abnormal Bowel Sounds, Mass (Female) Exam: Deferred Back Exam: No: CVA Tenderness (L), CVA Tenderness (R) Extremities: No: Pedal Edema Peripheral Pulses: 2+: Radial (L), Radial (R) Skin: Warm Neurological: Cranial Nerves Intact, Reflexes Equal Bilateral Neuro Extensive - Mental Status: Alert, Oriented x3, Normal Mood/Affect Neuro Extensive - Motor, Sensory, Reflexes: CN II-XII Intact, Normal Gait, Normal Reflexes Psychiatric: Alert, Normal Affect, Labile Mood Sepsis Event Note - Focused Exam Vital Signs: Vital Signs Temp Pulse Resp BP Pulse Ox 03/30/20 12:23 96.8 F L 60 16 144/76 H 96 Date Exam was Performed: 03/30/20 Time Exam was Performed: 13:48 Problem List Initiated/Reviewed/Updated: Yes Orders Last 24hrs: Active Orders 24 hr Category Date Time Status Patient Status [ADT] Routine ADT 03/30/20 09:38 Active Dietary Supplements [RC] 1430,1999 Care 03/30/20 09:38 Active Oxygen Therapy [RC] ASDIRECTED Care 03/30/20 09:38 Active Up to Chair [RC] ASDIRECTED Care 03/30/20 09:38 Active Heart Healthy Diet [DIET] Diet 03/30/20 Dinner Active Hemoccult [OCCULT BLOOD DIAGNOSTIC] [OP] Routine Lab 03/30/20 09:38 Ordered Acetaminophen [Tylenol] Med 03/30/20 09:38 Active 650 mg PO Q4H PRN Acetaminophen/HYDROcodone [Shade 325-5 MG] Med 03/30/20 09:38 Active 1.5 tab PO BID PRN Aspirin Med 03/31/20 21:00 Active 81 mg PO BEDTIME Calcium Carbonate Med 03/30/20 21:00 Active 600 mg PO BID Cholecalciferol (Vitamin D3) [Vitamin D3] Med 03/31/20 09:00 Active 50 mcg PO DAILY ClonazePAM [KlonoPIN] Med 03/30/20 09:38 Active 0.125 mg PO DAILY PRN ClonazePAM [KlonoPIN] Med 03/30/20 09:38 Active 0.25 mg PO BEDTIME PRN Clopidogrel [Plavix] Med 03/31/20 09:00 Active 75 mg PO DAILY FA/Lycopene/Lut/MV,Ca,Iron,Min [Centrum] Med 03/31/20 09:00 Active 1 tab PO DAILY Levothyroxine [Synthroid] Med 03/31/20 07:30 Active 50 mcg PO ACBREAKFAST Non-Formulary Medication [NF Drug] Med 03/30/20 09:38 Active 0 applic TOP Q4HR PRN Ondansetron [Zofran ODT] Med 03/30/20 09:38 Active 4 mg PO Q4H PRN Sodium Chloride 0.9% [Normal Saline] 1,000 ml Med 03/30/20 09:38 Active IV ASDIRECTED atenoloL [Tenormin] Med 03/31/20 09:00 Active 50 mg PO DAILY atorvaSTATin [Lipitor] Med 03/30/20 21:00 Active 10 mg PO BEDTIME lisinopriL [Prinivil] Med 03/31/20 09:00 Active 40 mg PO DAILY traMADol [Ultram] Med 03/30/20 09:38 Active 50 mg PO BID PRN Resuscitation Status Routine Resus Stat 03/30/20 09:38 Ordered Medication Orders Acetaminophen (Tylenol) 650 mg PO Q4H PRN PRN Reason: Pain Hydrocodone Bitart/Acetaminophen (Shade 325-5 Mg) 1.5 tab PO BID PRN PRN Reason: moderate pain Aspirin (Aspirin) 81 mg PO BEDTIME [facility] Atenolol (Tenormin) 50 mg PO DAILY [facility] Atorvastatin Calcium (Lipitor) 10 mg PO BEDTIME [facility] Calcium Carbonate/Glycine (Calcium Carbonate) 600 mg PO BID [facility] Cholecalciferol (Vitamin D3) 50 mcg PO DAILY [facility] Clonazepam (Klonopin) 0.125 mg PO DAILY PRN PRN Reason: anxiety` Clonazepam (Klonopin) 0.25 mg PO BEDTIME PRN PRN Reason: Insomnia Clopidogrel Bisulfate (Plavix) 75 mg PO DAILY [facility] Sodium Chloride (Normal Saline) 1,000 mls @ 50 mls/hr IV ASDIRECTED [facility] Levothyroxine Sodium (Synthroid) 50 mcg PO ACBREAKFAST [facility] Lisinopril (Prinivil) 40 mg PO DAILY [facility] Multivitamins/Minerals (Centrum) 1 tab PO DAILY [facility] Real Relief Pain (Lotion Own Med) 0 applic TOP Q4HR PRN PRN Reason: Pain Ondansetron HCl (Zofran Odt) 4 mg PO Q4H PRN PRN Reason: Nausea/Vomiting Tramadol HCl (Ultram) 50 mg PO BID PRN PRN Reason: Pain Assessment/Plan Comment:: History of present illness Ms Hobson is a very pleasant 89-year-old fragile thin female who was initially admitted into inpatient status on March 27 when she suffered from STEMI/ACS. She presented via EMS with 4-5 day hx of nausea, abdominal pain, anorexia and it was determined that she was having or had had an TN. Although she never did have chest pain or shortness of breath she does suffer from significant musculoskeletal pains especially in her knees and lower extremities in which she is on chronic opioid therapy. She is on a pain management contract at [facility]. At the time of admission the patient, 2 daughters refused transfer to tertiary care despite having full knowledge of likely requiring angiogram with cardiac intervention she decided against this and wanted us to do everything maximum medically possible without intervention--for no invasive approach was sought. For 3 days of inpatient stay with cardiac monitoring, addition of beta-blockers, anticoagulation, deemed that she had significant weakness and debilitation and likely could benefit from halfway care here at [facility] PT anticipation of her eventually going back home. Acute care ED findings/workup EKG: ST elevation with inverted T-waves in V3 and V4 Trop 2.54 BNP [address]: no mass, adenopathy or aneurysm. Moderate small bowel distention and likely intestinal angina. Primary Skill Care problems --Cachexia with weight loss, attritional supplementation with dietary consultation, will need small frequent calorie rich supplementation --Debilitation/frailty, PT for strengthening and balance --Weakness, document activity tolerance/progress --Fall Risk, high per Tinetti score Resolved problems ACS, STEMI, resolved, ASA and Clopidogrel, Atenolol, current non-HDL cholesterol 137 at time of starting statins--not far from goal if using non-HDL cholesterol. Will monitor this in 3 months. 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 Patient is a DO NOT RESUSCITATE
[2020-03-30] MEDS: traMADol 50 MG Tab PO PRN (16:17)
[2020-03-30] MEDS: Calcium Carbonate 600 MG Tab PO SCH ×2 (20:52→23:03)
[2020-03-30] MEDS: atorvaSTATin 10 MG Tab PO SCH ×2 (20:53→23:01)
[2020-03-30] MEDS: Acetaminophen/HYDROcodone 325-5 MG Tab PO PRN (22:58)
[2020-03-31] MEDS: Levothyroxine 50 MCG Tab PO SCH (06:35)
[2020-03-31] MEDS: traMADol 50 MG Tab PO PRN ×2 (08:28→21:06)
[2020-03-31] MEDS: Clopidogrel 75 MG Tab PO SCH (08:29)
[2020-03-31] MEDS: Atenolol 25 MG Tab PO SCH (08:29)
[2020-03-31] MEDS: Lisinopril 20 MG Tab PO SCH (08:30)
--- NOTE | 2020-03-31 10:04 | PCM.SN.2 ---
- Free Text/Narrative Note: Blood pressure slightly high and with new MN will need additional hypertension optimization. Will start low-dose amlodipine 2.5 mg. Likely would not tolerate increase in atenolol as heart rate 60. Monitor for signs of side effects, hypotension, peripheral edema or chest pain.
[2020-03-31] MEDS: amLODIPine 2.5 MG Tab PO SCH (12:34)
[2020-03-31] MEDS: Multivitamins with Minerals/Iron/Folic Acid/Lycopene Tab PO SCH (12:34)
[2020-03-31] MEDS: Cholecalciferol (Vitamin D3) 25 MCG Tab PO SCH (12:34)
[2020-03-31] MEDS: Calcium Carbonate 600 MG Tab PO SCH ×2 (12:35→20:06)
[2020-03-31] MEDS: Megestrol Susp 40 MG/ML 10 ML UD Cup PO SCH (12:54)
[2020-03-31] MEDS: Acetaminophen/HYDROcodone 325-5 MG Tab PO PRN (17:36)
[2020-03-31] MEDS: atorvaSTATin 10 MG Tab PO SCH (20:06)
[2020-03-31] MEDS: Aspirin 81 MG Tab.Chew PO SCH (20:06)
[2020-04-01] MEDS: Levothyroxine 50 MCG Tab PO SCH (06:44)
[2020-04-01] MEDS: traMADol 50 MG Tab PO PRN (06:45)
[2020-04-01] MEDS: Atenolol 25 MG Tab PO SCH (08:39)
[2020-04-01] MEDS: Lisinopril 20 MG Tab PO SCH (08:41)
[2020-04-01] MEDS: Calcium Carbonate 600 MG Tab PO SCH ×2 (08:42→20:38)
[2020-04-01] MEDS: Clopidogrel 75 MG Tab PO SCH (08:42)
[2020-04-01] MEDS: amLODIPine 2.5 MG Tab PO SCH (08:42)
[2020-04-01] MEDS: Multivitamins with Minerals/Iron/Folic Acid/Lycopene Tab PO SCH (08:42)
[2020-04-01] MEDS: Megestrol Susp 40 MG/ML 10 ML UD Cup PO SCH (08:43)
[2020-04-01] MEDS: Cholecalciferol (Vitamin D3) 25 MCG Tab PO SCH (10:43)
[2020-04-01] MEDS: Acetaminophen/HYDROcodone 325-5 MG Tab PO PRN (19:13)
[2020-04-01] MEDS: atorvaSTATin 10 MG Tab PO SCH (20:37)
[2020-04-01] MEDS: Aspirin 81 MG Tab.Chew PO SCH (20:37)
[2020-04-01] MEDS: Bisacodyl 5 MG Tab PO PRN (20:38)
[2020-04-02] MEDS: traMADol 50 MG Tab PO PRN ×2 (01:53→15:41)
[2020-04-02] MEDS: [UNRECOGNIZED DRUG - OTHER] TOP PRN ×2 (01:54→20:22)
[2020-04-02] MEDS: Levothyroxine 50 MCG Tab PO SCH (06:41)
[2020-04-02] MEDS: Acetaminophen/HYDROcodone 325-5 MG Tab PO PRN ×2 (07:52→20:19)
[2020-04-02] MEDS: Multivitamins with Minerals/Iron/Folic Acid/Lycopene Tab PO SCH (08:55)
[2020-04-02] MEDS: Clopidogrel 75 MG Tab PO SCH (08:55)
[2020-04-02] MEDS: Calcium Carbonate 600 MG Tab PO SCH ×2 (08:55→20:19)
[2020-04-02] MEDS: Cholecalciferol (Vitamin D3) 25 MCG Tab PO SCH (08:55)
[2020-04-02] MEDS: Bisacodyl 5 MG Tab PO PRN (08:55)
[2020-04-02] MEDS: Megestrol Susp 40 MG/ML 10 ML UD Cup PO SCH (08:56)
[2020-04-02] MEDS: Lisinopril 20 MG Tab PO SCH (09:56)
[2020-04-02] MEDS: Atenolol 25 MG Tab PO SCH (09:57)
[2020-04-02] MEDS: amLODIPine 2.5 MG Tab PO SCH (09:57)
[2020-04-02] MEDS: Naloxegol Oxalate 25 MG Tab PO SCH (10:08)
[2020-04-02] MEDS: atorvaSTATin 10 MG Tab PO SCH (20:19)
[2020-04-02] MEDS: Aspirin 81 MG Tab.Chew PO SCH (20:19)
[2020-04-03] MEDS: Ondansetron 4 MG Tab.DIS PO PRN ×2 (01:50→20:43)
[2020-04-03] MEDS: Levothyroxine 50 MCG Tab PO SCH ×2 (06:20→06:36)
[2020-04-03] MEDS: Acetaminophen/HYDROcodone 325-5 MG Tab PO PRN ×2 (06:21→23:45)
[2020-04-03] MEDS: Megestrol Susp 40 MG/ML 10 ML UD Cup PO SCH (08:15)
[2020-04-03] MEDS: Multivitamins with Minerals/Iron/Folic Acid/Lycopene Tab PO SCH (08:15)
[2020-04-03] MEDS: Cholecalciferol (Vitamin D3) 25 MCG Tab PO SCH (08:15)
[2020-04-03] MEDS: Clopidogrel 75 MG Tab PO SCH (08:15)
[2020-04-03] MEDS: Calcium Carbonate 600 MG Tab PO SCH ×2 (08:15→21:25)
[2020-04-03] MEDS: Lisinopril 20 MG Tab PO SCH (08:16)
[2020-04-03] MEDS: Naloxegol Oxalate 25 MG Tab PO SCH (08:16)
[2020-04-03] MEDS: Atenolol 25 MG Tab PO SCH (08:20)
[2020-04-03] MEDS: traMADol 50 MG Tab PO PRN (10:32)
[2020-04-03] MEDS: Aspirin 81 MG Tab.Chew PO SCH (21:25)
[2020-04-03] MEDS: atorvaSTATin 10 MG Tab PO SCH (21:25)
[2020-04-04] MEDS: Ondansetron 4 MG Tab.DIS PO PRN ×2 (04:27→07:58)
[2020-04-04] MEDS: Levothyroxine 50 MCG Tab PO SCH ×2 (06:26→06:30)
[2020-04-04] MEDS: Megestrol Susp 40 MG/ML 10 ML UD Cup PO SCH (08:19)
[2020-04-04] MEDS: Naloxegol Oxalate 25 MG Tab PO SCH (08:19)
[2020-04-04] MEDS: Atenolol 25 MG Tab PO SCH (08:19)
[2020-04-04] MEDS: Multivitamins with Minerals/Iron/Folic Acid/Lycopene Tab PO SCH (08:19)
[2020-04-04] MEDS: Cholecalciferol (Vitamin D3) 25 MCG Tab PO SCH (08:19)
[2020-04-04] MEDS: Calcium Carbonate 600 MG Tab PO SCH (08:19)
[2020-04-04] MEDS: Clopidogrel 75 MG Tab PO SCH (08:19)
[2020-04-04] MEDS: Lisinopril 20 MG Tab PO SCH (08:20)
[2020-04-04 08:21] VITALS: BP 112/77; PULSE 104
== END 2020-04-04 11:00 | disposition hospice, inpatient (51) | DRG 947 ==
LOC: KA.MS 11:00
PROVIDERS: ADMIT Nurse Practitioner Family; ATTEND Nurse Practitioner Family
DX: R53.1 Weakness (principal); I22.9 Subsequent ST elevation (STEMI) myocardial infarction of unspecified site; I21.3 ST elevation (STEMI) myocardial infarction of unspecified site; R64 Cachexia; Z68.1 Body mass index [BMI] 19.9 or less, adult; I11.0 Hypertensive heart disease with heart failure; I50.9 Heart failure, unspecified; Z66 Do not resuscitate; K59.09 Other constipation; F41.9 Anxiety disorder, unspecified; H54.7 Unspecified visual loss; E03.9 Hypothyroidism, unspecified; M19.90 Unspecified osteoarthritis, unspecified site; E53.8 Deficiency of other specified B group vitamins; Z91.09 Other allergy status, other than to drugs and biological substances; Z88.0 Allergy status to penicillin; Z88.1 Allergy status to other antibiotic agents; Z88.2 Allergy status to sulfonamides; Z79.82 Long term (current) use of aspirin; Z79.890 Hormone replacement therapy; Z79.899 Other long term (current) drug therapy; Z90.710 Acquired absence of both cervix and uterus; Z79.01 Long term (current) use of anticoagulants
CPT/HCPCS: 82272; 92526-GN; 92610-GN; A9270-GY